=== PATIENT | male | born 1965 | race Caucasian/White ===

== ENCOUNTER → 2021-06-24 | Outpatient (CLI) | payer MEDICARE, MEDICAID | LOC: CARD 12:01 | PROVIDERS: ATTEND Internal Medicine Cardiovascular Disease | DX: I11.9 Hypertensive heart disease without heart failure (principal); I25.10 Atherosclerotic heart disease of native coronary artery without angina pectoris | CPT/HCPCS: 93306 ==

== ENCOUNTER 2021-07-03 11:06 | Emergency (ER) | payer MEDICARE, MEDICAID ==
[~2021-07-03] VITALS: Ht 182 cm; Wt 90.0 kg
--- NOTE | 2021-07-03 11:22 | ED Lower Extremity ---
General Chief Complaint: Lower Extremity Stated Complaint: L KNEE PAIN Source: patient Exam Limitations: no limitations History of Present Illness Date Seen by Provider: July 03, 2021 Time Seen by Provider: 11:19 Initial Comments Patient is a 55-year-old male with a history of arthritis who presents ED with left anterior knee pain on the medial side. Pain has been ongoing for the past 2 to 3 months. Patient states pain described as sharp and states that same throughout the day. Gets improvement when he goes to sleep at night. Reports a mild swelling without bruising or redness. States he has had an x-ray done in [place] that was unremarkable. Has been taken ibuprofen. Denies of any specific injury that he can recall. Denies history of gout, fever, chills, chest pain, shortness of breath. Patient denies of any loosening or the left knee with walking. States left knee feels like it wants to give out at times but this feels different. Allergies and Home Medications Patient Home Medication List Home Medication List Reviewed: Yes Hydrocodone/Acetaminophen (Hydrocodone-Acetamin 5-325 mg) 5 Mg-325 Mg Tablet, 1 TAB PO Q4H PRN for PAIN-MODERATE (5-7) Prescribed by: BRENDAN HUGHES on 07/03/21 1204 Meloxicam (Meloxicam) 15 Mg Tablet, 15 MG PO DAILY Prescribed by: BRENDAN HUGHES on 07/03/21 1203 Review of Systems Constitutional: No chills, No diaphoresis, No malaise EENTM: No ear discharge, No ear pain, No blurred vision, No mouth pain, No mouth swelling, No throat pain, No throat swelling Respiratory: No cough Cardiovascular: No chest pain, No edema Gastrointestinal: No abdominal pain, No diarrhea, No nausea, No vomiting Genitourinary: No decreased output, No discharge Musculoskeletal: joint pain, joint swelling Skin: No change in color, No change in hair/nails All Other Systems Reviewed Negative Unless Noted: Yes Physical Exam Vital Signs Vital Signs - First Documented 07/03/21 11:15 Temp 36.6 Pulse 84 Resp 16 B/P (MAP) 139/87 (104) Pulse Ox 98 O2 Delivery Room Air Capillary Refill : Height, Weight, BMI Height: '" Weight: lbs. oz. kg; BMI Method: General Appearance: WD/WN, no apparent distress HEENT: PERRL/EOMI, normal ENT inspection, pharynx normal Neck: non-tender, full range of motion, supple Cardiovascular: regular rate, rhythm, no edema, no gallop, no JVD Respiratory: chest non-tender, lungs clear, normal breath sounds, no respiratory distress, no accessory muscle use Gastrointestinal: normal bowel sounds, non tender, soft, no organomegaly Back: normal inspection, no CVA tenderness Knees: left knee pain, left knee soft tissue tenderness, left knee swelling Ankles: bilateral ankle non-tender, bilateral ankle normal inspection, bilateral ankle no evidence of injury Feet: bilateral foot non-tender, bilateral foot normal inspection, bilateral foot normal range of motion 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 No erythema, warmth or ecchymosis. No evidence of septic arthritis. No history of gout. Symptoms over the past 2 to 3 months. Has not follow-up with orthopedic. Denies of any specific injury. Denies of any specific clicking or locking of the knee. He states the left knee feels like it wants to give out at times. Possible meniscus injury but no significant discomfort with Desi test. Negative Davide test. Negative anterior and posterior drawer test with no specific laxity or pain with valgus or varus stress. Would likely benefit with further outpatient evaluation possible MRI versus physical therapy orthopedic evaluation. Discussed cortisone injection patient is not excited about this. Will discharge meloxicam few days worth of pain medication. Does have appropriate range of motion. Any worsening symptoms return back to ED for further evaluation. Impression Primary Impression: Knee pain Disposition: 01 HOME, SELF-CARE Condition: Stable Departure-Patient Inst. Decision time for Depature: 12:02 Referrals: [facility] (PCP) Primary Care Physician MARY LOU TAO DO (Family) Primary Care Physician TARAN العلي MD Patient Instructions: Knee Pain Scripts Hydrocodone/Acetaminophen (Hydrocodone-Acetamin 5-325 mg) 5 Mg-325 Mg Tablet 1 TAB PO Q4H PRN for PAIN-MODERATE (5-7), #8 TAB Prov: JESUS SLOAN 07/03/21 Meloxicam (Meloxicam) 15 Mg Tablet 15 MG PO DAILY, #15 TAB Prov: JESUS SLOAN 07/03/21 JESUS SLOAN July 03, 2021 11:22
--- NOTE | 2021-07-03 11:55 | Diagnostic Imaging Report ---
INDICATION: Knee pain. COMPARISON: None available. TECHNIQUE: Three radiographs of the left knee dated July 03, 2021. FINDINGS: No acute fracture or dislocation. No destructive osseous process. Moderate medial joint space narrowing and minimal lateral joint space narrowing. Mild tricompartmental osteophytosis. No knee joint effusion. No suspicious radiopaque foreign body. IMPRESSION: No acute osseous abnormality with mild degenerative changes present, greatest within the medial compartment. Dictated by: Dictated on workstation # [id number]
[2021-07-03] MEDS ORDERED: ACHD5005 PO (12:03)
[2021-07-03] MEDS ORDERED: MELO15TA39 PO (12:03)
[2021-07-03 12:06] VITALS: BP 148/85
== END 2021-07-03 12:06 | disposition home or self-care (01) ==
LOC: EDUNIT# 11:06 → ER 11:09
DX: M17.12 Unilateral primary osteoarthritis, left knee (principal)
CPT/HCPCS: 73562

== ENCOUNTER → 2021-07-31 | Outpatient (CLI) | payer MEDICARE, MEDICAID ==
[~2021-07-31] MED LIST: ACHD5005 PO; MELO15TA39 PO
[2021-07-31 14:25] VITALS: BP 155/68
--- NOTE | 2021-07-31 14:25 | Cardiology Stress Test Report ---
Stress Test Report Date of Procedure/Referring: Date of Procedure: Jul 31, 2021 [facility] Admitting Physician Admitting Physician: Attending Physician: Tita Manzanares MD Indications: CP Baseline Heart Rate: 101 Baseline Blood Pressure: Blood Pressure Systolic: 155 Blood Pressure Diastolic: 68 Baseline EKG: Baseline EKG: NSR Summary/Conclusion: Summary: In summary, the patient started exercising with a baseline heart rate, blood pressure and EKG mentioned above Patient was able to exercise for a total of 4.37 minutes on Maximiliano protocol, METs 6.4 Maximum heart rate 114 Maximum blood pressure 165/80 Stress EKG, Minimal nondiagnostic changes Recovery EKG , Return to baseline Conclusion: 1. Submaximal stress test, patient exercised for 4 minutes and 37 seconds on Maximiliano protocol achieving only 68% of maximum expected heart rate with peak heart rate 114. 2. Nondiagnostic EKG changes with exercise return to baseline during recovery 3. No arrhythmia was detected 4. Consider Lexiscan Myoview stress test Copy Copies To 1: [facility] TITA MANZANARES MD Jul 31, 2021 14:25
== END ==
LOC: CARD 10:29
PROVIDERS: ATTEND Internal Medicine Cardiovascular Disease
DX: R07.9 Chest pain, unspecified (principal); R00.2 Palpitations
CPT/HCPCS: 93017

== ENCOUNTER 2021-08-27 06:01 | Emergency (ER) | payer MEDICARE, MEDICAID ==
[~2021-08-27] VITALS: Ht 182.2 cm; Wt 89.0 kg
[2021-08-27 06:24] VITALS: BP 163/91
--- NOTE | 2021-08-27 06:33 | ED GI ---
General Chief Complaint: Abdominal/GI Problems Stated Complaint: DIARRHEA Source of Information: Patient Exam Limitations: No Limitations History of Present Illness Date Seen by Provider: Aug 27, 2021 Time Seen by Provider: 06:11 Initial Comments The patient presents the ER by private conveyance with his significant other and chief complaint that he has had diarrhea since Thursday, 4 days ago. He is on hemodialysis Thursday and Thursday and did achieve it on Thursday but could not make it today. He had multiple episodes of diarrhea yesterday and one this morning. He did take a tablet of Imodium today. He is also been eating high-fiber bland diet. He is afraid that he would not be able to participate in hemodialysis. He does not feel dehydrated and feels that he has been able to drink enough fluids to keep up. He is not having any nausea right now he is having no more pain than usual just some discomfort in his lower abdomen. He has not been camping or using antibiotics recently. No unsafe water sources Allergies and Home Medications Allergies Coded Allergies: No Known Drug Allergies (Unverified , 08/27/21) Patient Home Medication List Home Medication List Reviewed: Yes Diphenoxylate HCl/Atropine (Lomotil 2.5-0.025 mg Tablet) 2.5 Mg-0.025 Mg Tablet, 1 EACH PO QIDACHS Prescribed by: DIEGO COVARRUBIAS on 08/27/21 0644 Hydrocodone/Acetaminophen (Hydrocodone-Acetamin 5-325 mg) 5 Mg-325 Mg Tablet, 1 TAB PO Q4H PRN for PAIN-MODERATE (5-7) Prescribed by: BRENDAN HUGHES on 07/03/21 1204 Meloxicam (Meloxicam) 15 Mg Tablet, 15 MG PO DAILY Prescribed by: BRENDAN HUGHES on 07/03/21 1203 Review of Systems Review of Systems Constitutional: No chills, No diaphoresis EENTM: No Blurred Vision, No Double Vision Respiratory: Denies Cough, Denies Shortness of Air Cardiovascular: Denies Chest Pain, Denies Lightheadedness Gastrointestinal: See HPI; Denies Abdominal Pain, Denies Constipated; Diarrhea, Nausea; Denies Poor Fluid Intake, Denies Vomiting Genitourinary: Denies Burning, Denies Discharge All Other Systems Reviewed Negative Unless Noted: Yes Past Vbrnzqb-Uwtriz-Uqsrot Hx Patient Social History Tobacco Use?: Yes Tobacco type used: Cigarettes Smoking Status: Current Everyday Smoker Use of E-Cig and/or Vaping dev: No Substance use?: No Alcohol Use?: No Pt feels they are or have been: No Immunizations Up To Date Influenza Vaccine Up-to-Date: No; Not Current First/Initial COVID19 Vaccinat: UNNOWN DATE Second COVID19 Vaccination Miguel: UNNOWN DATE Third COVID19 Vaccination Date: UNNOWN DATE Physical Exam Vital Signs Vital Signs - First Documented 08/27/21 06:24 Temp 36.2 Pulse 73 Resp 20 B/P (MAP) 163/91 (115) Pulse Ox 98 O2 Delivery Room Air Capillary Refill : Height/Weight/BMI Height: '" Weight: lbs. oz. kg; 27.00 BMI Method: General Appearance: WD/WN, no apparent distress HEENT: PERRL/EOMI, pharynx normal Neck: full range of motion, normal inspection Respiratory: lungs clear, normal breath sounds, no respiratory distress, no accessory muscle use Cardiovascular: normal peripheral pulses, regular rate, rhythm, no edema Peripheral Pulses: 2+ Radial Pulses (R), 2+ Radial Pulses (L) Gastrointestinal: normal bowel sounds, non tender, soft, no organomegaly Extremities: normal inspection, normal capillary refill Neurologic/Psychiatric: alert, normal mood/affect Skin: normal color, warm/dry Progress/Results/Core Measures Results/Orders My Orders Orders - DIEGO COVARRUBIAS Diphenoxylate/Atropine Tablet (Lomotil T (08/27/21 07:00) Medications Given in ED Current Medications Medications Dose Ordered Sig/Yoan Route Start Time Stop Time Status Last Admin Dose Admin Diphenoxylate HCl/ Atropine 1 ea ONCE ONCE PO 08/27/21 07:00 08/27/21 07:01 DC 08/27/21 06:50 1 EA Vital Signs/I&O 08/27/21 06:24 Temp 36.2 Pulse 73 Resp 20 B/P (MAP) 163/91 (115) Pulse Ox 98 O2 Delivery Room Air Progress Progress Note #1: Time: 06:32 Progress Note The patient appears well-hydrated has aseptic vital signs and declined IV fluids. Were going to get him some Lomotil and he will set up his dialysis tomorrow. We will give him something to drink and observe him for a short while to make sure that he is able to tolerate the Lomotil before letting him go home with a prescription. Progress Note #2: Time: 07:02 Progress Note Patient is feeling better. No episodes of diarrhea. Departure Impression Primary Impression: Gastroenteritis and colitis, viral Disposition: 01 HOME, SELF-CARE Condition: Stable Departure-Patient Inst. Decision time for Depature: 06:33 Referrals: [facility] (PCP) Primary Care Physician MARY LOU TAO DO (Family) Primary Care Physician Patient Instructions: Viral Gastroenteritis, Adult (DC), Diarrhea, Adult ED Add. Discharge Instructions: You may continue to use Imodium. 2 tablets at first followed by 1 tablet every 4 hours afterwards that you are still having loose, watery stools until symptoms maria. If you are still having loose stools despite Imodium then take Lomotil 1 tablet every 6 hours as needed. Stick to a bland diet. Rice, applesauce and toast. Avoid spicy, greasy foods. All discharge instructions reviewed with patient and/or family. Voiced understanding. Scripts Diphenoxylate HCl/Atropine (Lomotil 2.5-0.025 mg Tablet) 2.5 Mg-0.025 Mg Tablet 1 EACH PO CORY, #20 TAB Prov: DIEGO COVARRUBIAS 08/27/21 DIEGO COVARRUBIAS Aug 27, 2021 06:33
[2021-08-27] MEDS ORDERED: DIPH1TAB PO (06:42)
[2021-08-27] MEDS ORDERED: DIPHENOXYLATE/ATROPINE 2.5MG/0.025MG (LOMOTIL) TAB PO ONE (07:00)
== END 2021-08-27 07:07 | disposition home or self-care (01) ==
LOC: EDUNIT# 06:01 → ER 06:06
DX: A08.4 Viral intestinal infection, unspecified (principal); F17.210 Nicotine dependence, cigarettes, uncomplicated; Z99.2 Dependence on renal dialysis
CPT/HCPCS: 99283

== ENCOUNTER 2021-10-09 21:08 | Emergency (ER) | payer MEDICARE, MEDICAID ==
[~2021-10-09] VITALS: Ht 182.8 cm; Wt 93.7 kg
[~2021-10-09 21:08] MED LIST changes: +DIPH1TAB PO
[2021-10-09] MEDS ORDERED: morphine INJ 10 MG/ML 1ML (SYR OR VIAL) IV STA (21:27)
[2021-10-09] MEDS ORDERED: ONDANSETRON 4 MG/2 ML (SDV) Z0FRAN IVP ONE (21:30)
[2021-10-09 21:33] LABS: BASOPHILS # (AUTO) 0.1 10^3/uL (0.0-0.1); BASOPHILS % (AUTO) 1 % (0-10); EOSINOPHILS # (AUTO) 0.2 10^3/uL (0.0-0.3); EOSINOPHILS % (AUTO) 2 % (0-10); HEMATOCRIT 35 % (40-54); HEMOGLOBIN 11.9 g/dL (13.3-17.7); LYMPHOCYTES # (AUTO) 2.8 10^3/uL (1.0-4.0); LYMPHOCYTES % (AUTO) 32 % (12-44); MEAN CORPUSCULAR HEMOGLOBIN 32 pg (25-34); MEAN CORPUSCULAR HGB CONC 34 g/dL (32-36); MEAN CORPUSCULAR VOLUME 96 fL (80-99); MEAN PLATELET VOLUME 10.1 fL (9.0-12.2); MONOCYTES # (AUTO) 1.3 10^3/uL (0.0-1.0); MONOCYTES % (AUTO) 14 % (0-12); NEUTROPHILS # (AUTO) 4.4 10^3/uL (1.8-7.8); NEUTROPHILS % (AUTO) 50 % (42-75); PLATELET COUNT 217 10^3/uL (130-400); WHITE BLOOD COUNT 8.7 10^3/uL (4.3-11.0)
--- NOTE | 2021-10-09 21:33 | ED Chest Pain ---
General Chief Complaint: Chest Pain Stated Complaint: SOB,CP Source: patient Exam Limitations: no limitations (JESUS SLOAN) History of Present Illness Date Seen by Provider: Oct 09, 2021 Time Seen by Provider: 21:30 Initial Comments Patient is a 55-year-old male with a history of dialysis, hypertension, type 2 diabetes who presents ED with chest tightness and shortness of breath. This started 1 hour ago before going to bed. States he started having chest tightness with shortness of breath was not able to speak. The shortness of breath improved but still having chest tightness rated 7 out of 10. Located to the center part of his chest without radiation. Reports nausea after taking an full aspirin given by EMS. Denies vomiting or diarrhea. Does get dialysis every Thursday and Thursday. Did go to dialysis yesterday. Denies any fever, vomiting, diarrhea, cough, leg swelling, visual changes, headache. Patient was reports of back pain and neck pain and states this is chronic and believes this is worse with laying down here at bedside. 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 Submaximal stress test in july 2021. (JESUS SLOAN) Allergies and Home Medications Allergies Coded Allergies: No Known Drug Allergies (Unverified , 08/27/21) Patient Home Medication List Home Medication List Reviewed: Yes (JESUS SLOAN) Diphenoxylate HCl/Atropine (Lomotil 2.5-0.025 mg Tablet) 2.5 Mg-0.025 Mg Tablet, 1 EACH PO QIDACHS Prescribed by: DIEGO COHEN on 08/27/21 0644 Hydrocodone/Acetaminophen (Hydrocodone-Acetamin 5-325 mg) 5 Mg-325 Mg Tablet, 1 TAB PO Q4H PRN for PAIN-MODERATE (5-7) Prescribed by: BRENDAN HUGHES on 07/03/21 1204 Meloxicam (Meloxicam) 15 Mg Tablet, 15 MG PO DAILY Prescribed by: BRENDAN HUGHES on 07/03/21 1203 Review of Systems Review of Systems Constitutional: No chills, No diaphoresis, No malaise, No weakness EENTM: No Blurred Vision, No Double Vision, No Eye Pain Respiratory: Denies Cough; Shortness of Air Cardiovascular: Chest Pain Gastrointestinal: Denies Abdominal Pain, Denies Diarrhea; Nausea; Denies Vomiting Genitourinary: Denies Burning Musculoskeletal: No back pain, No joint pain Skin: No change in color, No change in hair/nails (JESUS SLOAN) All Other Systems Reviewed Negative Unless Noted: Yes (JESUS SLOAN) Past Tiechvc-Iyepdn-Kswkgm Hx Immunizations Up To Date First/Initial COVID19 Vaccinat: UNNOWN DATE Second COVID19 Vaccination Miguel: UNNOWN DATE Third COVID19 Vaccination Date: UNNOWN DATE (JESUS SLOAN) Physical Exam Vital Signs Vital Signs - First Documented 10/09/21 21:09 Temp 36.9 Pulse 65 Resp 18 B/P (MAP) 140/92 (108) Pulse Ox 97 O2 Delivery Room Air (DIEGO COHEN) Vital Signs Capillary Refill : (JESUS SLOAN) Height, Weight, BMI Height: '" Weight: lbs. oz. kg; 26.00 BMI Method: General Appearance: No Apparent Distress, WD/WN HEENT: PERRL/EOMI, TMs Normal, Normal ENT Inspection, Pharynx Normal Neck: Full Range of Motion, Normal Inspection, Non Tender, Supple Respiratory: Chest Non Tender, Lungs Clear, Normal Breath Sounds, No Accessory Muscle Use, No Respiratory Distress Cardiovascular: Regular Rate, Rhythm, No Edema, No Gallop, No JVD, No Murmur Gastrointestinal: Normal Bowel Sounds, No Organomegaly, No Pulsatile Mass, Non Tender Extremity: Normal Capillary Refill, Normal Inspection, Normal Range of Motion, Non Tender Neurologic/Psychiatric: Alert, Oriented x3, No Motor/Sensory Deficits, Normal 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, 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 Skin: Normal Color, Warm/Dry (JESUS SLONA) Progress/Results/Core Measures Results/Orders Lab Results Laboratory Tests Test 10/09/21 21:15 10/10/21 00:17 Range/Units White Blood Count 8.7 4.3-11.0 10^3/uL Red Blood Count 3.67 L 4.30-5.52 10^6/uL Hemoglobin 11.9 L 13.3-17.7 g/dL Hematocrit 35 L 40-54 % Mean Corpuscular Volume 96 80-99 fL Mean Corpuscular Hemoglobin 32 25-34 pg Mean Corpuscular Hemoglobin Concent 34 32-36 g/dL Red Cell Distribution Width 13.4 10.0-14.5 % Platelet Count 217 130-400 10^3/uL Mean Platelet Volume 10.1 9.0-12.2 fL Immature Granulocyte % (Auto) 0 % Neutrophils (%) (Auto) 50 42-75 % Lymphocytes (%) (Auto) 32 12-44 % Monocytes (%) (Auto) 14 H 0-12 % Eosinophils (%) (Auto) 2 0-10 % Basophils (%) (Auto) 1 0-10 % Neutrophils # (Auto) 4.4 1.8-7.8 10^3/uL Lymphocytes # (Auto) 2.8 1.0-4.0 10^3/uL Monocytes # (Auto) 1.3 H 0.0-1.0 10^3/uL Eosinophils # (Auto) 0.2 0.0-0.3 10^3/uL Basophils # (Auto) 0.1 0.0-0.1 10^3/uL Immature Granulocyte # (Auto) 0.0 0.0-0.1 10^3/uL Prothrombin Time 14.2 12.2-14.7 SEC INR Comment 1.1 0.8-1.4 Activated Partial Thromboplast Time 35 24-35 SEC Sodium Level 136 135-145 MMOL/L Potassium Level 5.6 H 3.6-5.0 MMOL/L Chloride Level 96 L 98-107 MMOL/L Carbon Dioxide Level 24 21-32 MMOL/L Anion Gap 16 H 5-14 MMOL/L Blood Urea Nitrogen 63 H 7-18 MG/DL Creatinine 9.32 H 0.60-1.30 MG/DL Estimat Glomerular Filtration Rate 6 BUN/Creatinine Ratio 7 Glucose Level 97 70-105 MG/DL Calcium Level 9.4 8.5-10.1 MG/DL Corrected Calcium 9.4 8.5-10.1 MG/DL Magnesium Level 2.6 H 1.6-2.4 MG/DL Total Bilirubin 0.5 0.1-1.0 MG/DL Aspartate Amino Transf (AST/SGOT) 13 5-34 U/L Alanine Aminotransferase (ALT/SGPT) 14 0-55 U/L Alkaline Phosphatase 39 L 40-136 U/L Myoglobin 294.3 H 10.0-92.0 NG/ML Troponin I 0.030 H 0.032 H <0.028 NG/ML Total Protein 7.0 6.4-8.2 GM/DL Albumin 4.0 3.2-4.5 GM/DL (DIEGO COHEN) My Orders Orders - DIEGO COHEN Ekg Tracing (10/09/21 21:17) Troponin I [place] (10/10/21 00:15) (DIEGO COEHN) Medications Given in ED Current Medications Medications Dose Ordered Sig/Yoan Route Start Time Stop Time Status Last Admin Dose Admin Dextrose 25 ml ONCE ONCE IV 10/09/21 21:45 10/09/21 21:47 DC 10/09/21 22:32 25 ML Insulin Human Regular 10 unit ONCE ONCE IV 10/09/21 21:45 10/09/21 21:47 DC 10/09/21 22:32 10 UNIT Ondansetron HCl 4 mg ONCE ONCE IVP 10/09/21 21:30 10/09/21 21:31 DC 10/09/21 21:49 4 MG (DIEGO COHEN) Vital Signs/I&O 10/09/21 21:09 Temp 36.9 Pulse 65 Resp 18 B/P (MAP) 140/92 (108) Pulse Ox 97 O2 Delivery Room Air (DIEGO COHEN) Progress Progress Note : Time: 23:26 Progress Note Assumed care of the patient at shift change. Plan is to repeat a 3-hour delta troponin. If it is okay then he can go home and follow-up outpatient. Patient is pain-free, resting comfortably at this time. (DIEGO COHEN) Initial ECG Impression Date: Oct 09, 2021 Initial ECG Impression Time: 21:21 Initial ECG Rate: 69 Initial ECG Rhythm: Normal Sinus Initial ECG Intervals: Normal Initial ECG Impression: Normal Comment Normal sinus rhythm without ST elevation or depression. (DIEGO COHEN) Departure Communication (PCP) Patient troponin initially 0.30. Chronic kidney disease requiring dialysis every Thursday, and Thursday. He is currently pain-free after IV morphine. EKG showed normal sinus rhythm. Had a submaximal test result by Dr. Manzanares in July of a stress test and scheduled for a pharmacology stress test due to not able to perform the walking stress test. History of coronary artery disease, type 2 diabetes, family cardiac history. Patient currently with chronic kidney disease. Had a potassium of 5.6 was given insulin and D50. No EKG changes. Chest x-ray unremarkable. No leg swelling noted. He Is not hypoxic or tachycardic with stable vital signs. Patient was discussed with Dr. Du cardiology recommend a serial troponin if number is similar to his other results patient can be discharged outpatient. If any changes in troponin re commends transfer. Patient was discussed with Jeniffer at [facility] for potential transfer if need. Patietn was discussed with DR. Cohen who took over care at 11 PM. (JESUS SLOAN) Impression Primary Impression: Chest pain Qualified Codes: R07.9 - Chest pain, unspecified Disposition: HOME, SELF-CARE Condition: Stable Departure-Patient Inst. Decision time for Depature: 01:03 (DIEGO COHEN) Referrals: [facility] (PCP) Primary Care Physician MARY LOU TAO DO (Family) Primary Care Physician TITA MANZANARES MD Patient Instructions: Chest Pain (DC) Add. Discharge Instructions: Continue take your medications as prescribed. Tomorrow call Dr. Manzanares's office and request follow-up appointment. Return to the nearest ER for significant chest pain, shortness of air or other worrisome symptoms. Keep your follow-up at the dialysis center. All discharge instructions reviewed with patient and/or family. Voiced understanding. Copy Copies To 1: TITA MANZANARES MD, ZACHARY A PA Oct 09, 2021 21:33 DIEGO COHEN Oct 09, 2021 23:27
[2021-10-09 21:36] LABS: POTASSIUM 5.6 MMOL/L (3.6-5.0)
[2021-10-09 21:38] LABS: CALCIUM 9.4 MG/DL (8.5-10.1)
[2021-10-09 21:39] LABS: INR 1.1 (0.8-1.4); PROTHROMBIN TIME PATIENT 14.2 SEC (12.2-14.7)
[2021-10-09 21:41] LABS: BILIRUBIN,TOTAL 0.5 MG/DL (0.1-1.0)
[2021-10-09 21:43] LABS: CREATININE SERUM 9.32 MG/DL (0.60-1.30)
[2021-10-09 21:45] LABS: MAGNESIUM 2.6 MG/DL (1.6-2.4)
[2021-10-09] MEDS ORDERED: inSUlin (REGULAR) HUMAN 1 UNIT/0.01 ML (CHARGE PER UNIT) IV ONE (21:45)
[2021-10-09] MEDS ORDERED: DEXTROSE 50% 50 ML (IMS) SYR IV ONE (21:45)
--- NOTE | 2021-10-09 21:49 | Diagnostic Imaging Report ---
INDICATION: Chest pain. EXAMINATION: AP view of the chest was obtained. COMPARISON: There is no previous study for comparison. FINDINGS: Heart size is within normal limits. Pulmonary vascularity is at the upper limits, however there is no evidence of overt edema. No consolidation, pneumothorax or pleural fluid is seen. IMPRESSION: Pulmonary vascularity is at the upper limits of normal. This could be due to hypervolemia and clinical correlation is recommended. Dictated by: Dictated on workstation # [id number]
[2021-10-10 01:09] VITALS: BP 138/86
[2021-10-10] MEDS ORDERED: oxyCODONE/APAP 5/325MG (PERCOCET 5) TABLET PO ONE (01:15)
== END 2021-10-10 01:09 | disposition home or self-care (01) ==
LOC: EDUNIT# 21:08 → ER 21:09
DX: R07.89 Other chest pain (principal); R11.0 Nausea; I12.9 Hypertensive chronic kidney disease with stage 1 through stage 4 chronic kidney disease, or unspecified chronic kidney disease; E11.22 Type 2 diabetes mellitus with diabetic chronic kidney disease; N18.9 Chronic kidney disease, unspecified; Z99.2 Dependence on renal dialysis
CPT/HCPCS: 36415; 71045; 80053; 83735; 83874; 84484; 85025; 85610; 85730; 93005; 93041; 96374; 96375

== ENCOUNTER → 2021-10-14 | Outpatient (CLI) | payer MEDICARE, MEDICAID ==
[~2021-10-14] VITALS: Ht 182 cm; Wt 89.0 kg
[~2021-10-14] MED LIST changes: +REGADENOSON 0.4 MG/5 ML SYR (LEXISCAN) IV ONE
[2021-10-14] MEDS: CATHETER FLUSH 10 ML SYR IVP PRN ×2 (07:03→08:55)
[2021-10-14 08:53] VITALS: BP 162/101
--- NOTE | 2021-10-14 11:39 | Cardiology Stress Test Report ---
Stress Test Report Date of Procedure/Referring: Date of Procedure: Oct 14, 2021 [facility] Admitting Physician Admitting Physician: Attending Physician: Holly Atkins Indications: CAD Baseline Heart Rate: 68 Baseline Blood Pressure: Blood Pressure Systolic: 162 Blood Pressure Diastolic: 101 Baseline Vitals Vital Signs Date Time Temp Pulse Resp B/P (MAP) Pulse Ox O2 Delivery O2 Flow Rate FiO2 10/14/21 08:53 67 16 162/101 (121) 95 Room Air Baseline EKG: Baseline EKG: NSR Summary After explaining the procedure to the patient, he signed a consent and then brought to the stress nuclear laboratory. Patient received 0.4 mg Lexiscan for stress test, ECG, heart rate and blood pressure were monitored continuously. Resting and stress dose of radio tracer were injected, imaging was acquired and reviewed in short axis, horizontal long axis and vertical long axis views. TID: 1.15 SSS: 6 SDS: 5 EF: 47 1. Patient tolerated Lexiscan well 2. Diaphragmatic attenuation with mild reversible ischemia involving the inferoapical segment and the inferior lateral segment 3. Normal left ventricular size with mild hypokinesia of the inferior wall, ejection fraction 47% Copy Copies To 1: [facility] [place] TITA BANDA MD Oct 14, 2021 11:39
== END ==
LOC: CARD 07:30
PROVIDERS: ATTEND Physician Assistant
DX: I25.10 Atherosclerotic heart disease of native coronary artery without angina pectoris (principal)
CPT/HCPCS: 78452; 93017; A9502

== ENCOUNTER 2021-10-30 10:00 | Day surgery (SDC) | payer MEDICARE, MEDICAID ==
[~2021-10-30] VITALS: Ht 182.9 cm; Wt 91.0 kg
[2021-10-30] VITALS (25 sets, daily range): BP systolic 142–218; BP diastolic 90–119
[2021-10-30 08:04] LABS: HEMATOCRIT 34 % (40-54); HEMOGLOBIN 10.4 g/dL (13.3-17.7); MEAN CORPUSCULAR HEMOGLOBIN 32 pg (25-34); MEAN CORPUSCULAR HGB CONC 31 g/dL (32-36); MEAN CORPUSCULAR VOLUME 102 fL (80-99); MEAN PLATELET VOLUME 9.9 fL (9.0-12.2); PLATELET COUNT 209 10^3/uL (130-400); WHITE BLOOD COUNT 8.6 10^3/uL (4.3-11.0)
--- NOTE | 2021-10-30 08:07 | Diagnostic Imaging Report ---
Indication: Abnormal cardiac stress test Heart size and pulmonary vascularity are within normal limits. There is no pneumothorax or consolidation. No definite pleural fluid is identified. IMPRESSION: No definite acute abnormality. Dictated by: Dictated on workstation # [id number]
[2021-10-30 08:28] LABS: PROTHROMBIN TIME PATIENT 13.9 SEC (12.2-14.7)
[2021-10-30 08:36] LABS: ALBUMIN 3.6 GM/DL (3.2-4.5); BILIRUBIN,TOTAL 0.4 MG/DL (0.1-1.0); CALCIUM 8.9 MG/DL (8.5-10.1); CREATININE SERUM 7.78 MG/DL (0.60-1.30); POTASSIUM 5.6 MMOL/L (3.6-5.0); TOTAL PROTEIN 6.6 GM/DL (6.4-8.2)
[~2021-10-30 10:00] MED LIST changes: +ACET-93 PO; +ALLO100T PO; +AMLO-250 PO; +APIX2.5T PO; +CHOL400T3 PO; +FERR210T PO; +HEParin (CATH LAB) 2,000 ML IV ONE; +LIDOCAINE 1% INJ 20 ML VIAL ONE; +LISI20TA26 PO; +MONT10TA21 PO; +NS IV 1000 ML 1,000 ML IV SCH; +NS IV 1000 ML 1,000 ML ONE; +ONDA4TAB11 PO; +PANT40TA52 PO; -REGADENOSON 0.4 MG/5 ML SYR (LEXISCAN) IV ONE; +RT-ALBUINH INH; +SEVE800T7 PO; +SODI10PO PO; +TRAZ150T72 PO
[2021-10-30] MEDS ORDERED: fentaNYL INJ 100 MCG/2 ML AMP ONE (10:04)
[2021-10-30] MEDS ORDERED: MIDAZOLAM 2 MG/2 ML (VERSED) VIAL ONE ×3 (10:06→10:27)
--- NOTE | 2021-10-30 10:16 | Cardiac Procedure Note-CS/ASA ---
Pre-Procedure Note Pre-Op Procedure Note Date of Available H&P: Oct 17, 2021 Date H&P Reviewed: Oct 30, 2021 Time H&P Reviewed: 10:15 History & Physical: H&P Reviewed, Patient Examed, No changes noted Pre-Operative Diagnosis: CAD Conscious Sedation Pre-Proced Time 10:16 ASA Score 3 For ASA 3 and 4: Consider anesthesia and medical clearance. Also, for patients with a history of failed moderate sedation consider anesthesia. Airway Lungs Heart ASA score ASA 1: a normal healthy patient ASA 2: a patient with a mild systemic disease (mid diabetes, controlled hypertension, obesity ASA 3: a patient with a severe systemic disease that limits activity (angina, COPD, prior Myocardial infarction) ASA 4: a patient with an incapacitating disease that is a constant threat to life (CHF, renal failure) ASA 5: a moribund patient not expected to survive 24 hrs. (ruptured aneurysm) ASA 6: a declared brain- patient whose organs are being harvested. For emergent operations, add the letter E after the classification Mallampati Classification Grade 3 Sedation Plan Analgesia, Amnesia, Plan communicated to team members, Discussed options with patient/fam, Discussed risks with patient/fam The patient is an appropriate candidate to undergo the planned procedure, sedation, and anesthesia. The patient immediately re-assessed prior to indication. TITA BANDA MD Oct 30, 2021 10:16
[2021-10-30] MEDS ORDERED: meTOprolol 5 MG/5 ML (LOPRESSOR) VIAL ONE (10:38)
--- NOTE | 2021-10-30 10:51 | Discharge Inst-Post CATH ---
Discharge Inst-CATH/EP Problems Reviewed?: Yes Post Cardiac Cath/EP D/C Inst Follow Up/Plan Appointment with Dr. Manzanares's office in 2 to 4 weeks <b>CARDIAC CATH/EP PROCEDURE DISCHARGE INSTRUCTIONS</b> ACTIVITY * Go Home directly and rest. * Limit activity of the leg (or wrist if it was used) for 7 days including aer obics, swimming, jogging, bicycling, etc. * Restrict stair-climbing for 7 days if possible, if not, climb up with your non-cath leg, then bring together on the same step. * Avoid lifting, pushing, pulling or excessive movement of the affected extremi ty for 7 days. * Customary sexual activity may be resumed after 2 days-use caution not to use a position that strains or causes pain to the affected extremity. * No driving for 24 hours. * NO SMOKING. * Avoid straining for bowel movements for 7 days. * Gentle walking on level ground is allowed. * Returning to work will depend on the type of procedure and the results. Your doctor will discuss this with you. CALL YOUR DOCTOR FOR ANY OF THE FOLLOWING: *If bleeding from the puncture site occurs- Apply gentle pressure to site with clean cloth and call your doctor or EMS. * If a knot or lump forms under the skin, increases in size, or causes pain. * If bruising appears to be worsening or moving further down your leg instead of disappearing. * Temperature above 101 F. CARE OF YOUR GROIN INCISION; * Bruising or purple discoloration of the skin near the puncture site is common. * You may shower only, no bathtub bathing for 5 days. Be careful to avoid slipping as your leg may feel stiff. * If a closure device was used on your femoral artery, please see the attached guide regarding care of the device and your leg. * Leave dressing on FOR 24 hours. CARE OF YOUR WRIST INCISION; * Bruising or purple discoloration of the skin near the puncture site is common. * You may shower. * DO NOT submerge wrist. * Leave dressing on FOR 24 hours. TITA MANZANARES MD Oct 30, 2021 10:51
--- NOTE | 2021-10-30 10:54 | Cardiac Cath Report ---
Cardiac Cath Report Physician (s)/Statistical Clerk (s) Physician TITA BANDA MD Pre-Procedure Diagnosis Pre-Procedure Diagnosis: CAD Post-Procedure Note Procedure Start Date: Oct 30, 2021 Name of Procedure: Left heart catheterization Findings/Procedure Note PROCEDURE NOTE: 56-year-old gentleman with history of end-stage kidney disease on hemodialysis, hypertension and hyperlipidemia, had an abnormal stress test, scheduled for cardiac catheterization possible PTCA. After explaining the procedure to the patient, all pros and cons were explained, all questions were answered. The patient signed the consent and then he was placed on the cardiac catheterization laboratory. Groin was prepped SL fashion local anesthesia was used. Sheath placed in the right femoral artery. Sol right and left catheter were used to access the coronary system. Pigtail was used to access the left ventricular cavity. Left ventriculogram was not done, pressure was measured Aortic arch angiogram was not done At the end of the procedure the sheath was removed. Closure device was deployed FINDINGS: Hemodynamics LV 144/17, end-diastolic pressure of 17 Aorta 129/73 mean of 101 ANATOMY: Left Main has no obstructive disease Left Anterior Descending has mild diffuse ectasia with nonobstructive disease Left Circumflex has mild diffuse ectasia with nonobstructive disease Right Coronary Artery has mild diffuse ectasia, dominant artery, nonobstructive disease LV Gram was not done, pressure was measured CONCLUSION: 1. Mild diffuse coronary ectasia, nonobstructive disease 2. Mildly elevated left ventricular end-diastolic pressure, hypertensive heart disease DISCUSSION AND RECOMMENDATION: Continue to maximize medical therapy, no intervention is needed Anesthesia Type: Conscious Sedation Estimated blood loss (mL): 20 ml Contrast Amount: 44 ml Total Radiation Dose: 340 mGy Post-Procedure Diagnosis Post-operative diagnosis: Chest pain Coronary artery disease Hypertension End-stage kidney disease TITA BANDA MD Oct 30, 2021 10:53
[2021-10-30] MEDS ORDERED: NS IV 1000 ML 1,000 ML IV SCH (11:00)
[2021-10-30] MEDS ORDERED: PATIENT MAY USE OWN MEDS, ALL PO SCH (11:00)
[2021-10-30] MEDS ORDERED: cloNIDine 0.1 MG (CATAPRES) TAB PO NR (14:00)
[2021-10-30] MEDS ORDERED: amLODIPine 5 MG (NORVASC) TAB PO SCH (14:15)
[2021-10-30] MEDS ORDERED: lisINopril 20 MG (PRINIVIL) TABLET PO SCH (14:15)
[2021-10-30] MEDS ORDERED: morphine INJ 10 MG/ML 1ML (SYR OR VIAL) IVP STA (16:29)
[2021-10-30] MEDS ORDERED: morphine INJ 4 MG/ML 1 ML (VIAL/SYRINGE) ONE (16:33)
[2021-10-30] MEDS ORDERED: morphine INJ 4 MG/ML 1 ML (VIAL/SYRINGE) IVP ONE (16:45)
== END 2021-10-30 18:10 | disposition home or self-care (01) ==
LOC: CATH 10:00 → CSD 11:16 → CATH 18:10
PROVIDERS: ATTEND Internal Medicine Cardiovascular Disease
DX: I48.0 Paroxysmal atrial fibrillation (principal); I25.10 Atherosclerotic heart disease of native coronary artery without angina pectoris; I12.0 Hypertensive chronic kidney disease with stage 5 chronic kidney disease or end stage renal disease; N18.6 End stage renal disease; Z79.01 Long term (current) use of anticoagulants; Z79.899 Other long term (current) drug therapy; Z87.891 Personal history of nicotine dependence; Z99.2 Dependence on renal dialysis; I65.23 Occlusion and stenosis of bilateral carotid arteries; E78.5 Hyperlipidemia, unspecified
CPT/HCPCS: 71045; 80053; 80061; 85027; 85610; 85730; 87081; 93005; 93458; C1760; C1894; 36415

== ENCOUNTER 2021-11-01 20:00 | Emergency (ER) | payer MEDICARE, MEDICAID ==
[~2021-11-01] VITALS: Ht 182.9 cm; Wt 90.7 kg
[~2021-11-01 20:00] MED LIST changes: -HEParin (CATH LAB) 2,000 ML IV ONE; -LIDOCAINE 1% INJ 20 ML VIAL ONE; -NS IV 1000 ML 1,000 ML IV SCH; -NS IV 1000 ML 1,000 ML ONE
[2021-11-01] MEDS ORDERED: HYDROmorphone 2 MG/ML VIAL (DILAUDID) IV ONE ×2 (20:15→20:30)
--- NOTE | 2021-11-01 20:19 | ED Lower Extremity ---
General Stated Complaint: POST CATH BLEED Source: patient, EMS Exam Limitations: no limitations History of Present Illness Date Seen by Provider: Nov 01, 2021 Time Seen by Provider: 20:16 Initial Comments To ER by EMS from the [facility] where he had sudden onset of right groin pain. Upon EMS arrival they cut off his jeans and noted bruising to the right groin. He had right femoral artery access for cardiac catheterization here 2 days ago. He been doing well until this evening. By the time they had arrived to the emergency room he had very large hematoma to the right groin, severe pain down to the knee and has become hypotensive. He does receive hemodialysis. Onset: just prior to arrival Severity: moderate Pain/Injury Location: right leg Method of Injury: unknown Allergies and Home Medications Allergies Coded Allergies: No Known Drug Allergies (Unverified , 08/27/21) Patient Home Medication List Home Medication List Reviewed: Yes Acetaminophen (Acetaminophen) 500 Mg Tablet, 1,000 MG PO Q6H PRN for PAIN-MILD (1-4), (Reported) Entered as Reported by: LUIS FELIPE GARRETT on 10/30/21 0854 Albuterol Sulfate (Ventolin Hfa) 1 Puff Puff, 2 PUFF INH Q4H, (Reported) Entered as Reported by: LUIS FELIPE GARRETT on 10/30/21 0854 Allopurinol (Allopurinol) 100 Mg Tablet, 100 MG PO DAILY, (Reported) Entered as Reported by: LUIS FELIPE GARRETT on 10/30/21 0854 Amlodipine Besylate (Amlodipine Besylate) 5 Mg Tablet, 5 MG PO DAILY, (Reported) Entered as Reported by: LUIS FELIPE GARRETT on 10/30/21 0854 Apixaban (Eliquis) 2.5 Mg Tablet, 2.5 MG PO BID, (Reported) Entered as Reported by: LUIS FELIPE GARRETT on 10/30/21 0854 Cholecalciferol (Vitamin D3) (Vitamin D3) 10 Mcg (400 Unit) Tab.chew, 10 MCG PO DAILY, (Reported) Entered as Reported by: LUIS FELIPE GARRETT on 10/30/21 0854 Ferric Citrate (Auryxia) 210 Mg Iron Tablet, 210 MG PO BID, (Reported) Entered as Reported by: LUIS FELIPE GARRETT on 10/30/21 0854 Lisinopril (Lisinopril) 20 Mg Tablet, 20 MG PO DAILY, (Reported) Entered as Reported by: LUIS FELIPE GARRETT on 10/30/21 08 Montelukast Sodium (Singulair) 10 Mg Tablet, 10 MG PO DAILY, (Reported) Entered as Reported by: LUIS FELIPE GARRETT on 10/30/21 08 Ondansetron (Ondansetron Odt) 4 Mg Tab.rapdis, 4 MG PO DAILY PRN for NAUSEA/VOMITING, (Reported) Entered as Reported by: LUIS FELIPE GARRETT on 10/30/21 08 Pantoprazole Sodium (Pantoprazole Sodium) 40 Mg Tablet.dr, 40 MG PO DAILY, (Re ported) Entered as Reported by: LUIS FELIPE GARRETT on 10/30/21 08 Sevelamer Carbonate (Renvela) 800 Mg Tablet, 800 MG PO TID, (Reported) Entered as Reported by: LUIS FELIPE GARRETT on 10/30/21853 Sodium Zirconium Cyclosilicate (Lokelma) 10 Gram Powd.pack, 10 GM PO, (Reported) Entered as Reported by: LUIS FELIPE GARRETT on 10/30/21 08 Trazodone HCl (Trazodone HCl) 150 Mg Tablet, 150 MG PO HS, (Reported) Entered as Reported by: LUIS FELIPE GARRETT on 10/30/21853 Discontinued Medications Diphenoxylate HCl/Atropine (Lomotil 2.5-0.025 mg Tablet) 2.5 Mg-0.025 Mg Tablet, 1 EACH PO QIDACHS Discontinued Reason: No Longer Taking Prescribed by: DIEGO COVARRUBIAS on 08/27/21 0644 Hydrocodone/Acetaminophen (Hydrocodone-Acetamin 5-325 mg) 5 Mg-325 Mg Tablet, 1 TAB PO Q4H PRN for PAIN-MODERATE (5-7) Discontinued Reason: No Longer Taking Prescribed by: BRENDAN HUGHES on 07/03/21 1204 Meloxicam (Meloxicam) 15 Mg Tablet, 15 MG PO DAILY Discontinued Reason: No Longer Taking Prescribed by: BRENDAN HUGHES on 07/03/21 1203 Review of Systems Constitutional: see HPI EENTM: see HPI Respiratory: no symptoms reported Cardiovascular: no symptoms reported Genitourinary: no symptoms reported Musculoskeletal: no symptoms reported Skin: no symptoms reported Psychiatric/Neurological: No Symptoms Reported Past Uvpvgia-Rbnvtk-Gwahne Hx Immunizations Up To Date First/Initial COVID19 Vaccinat: UNNOWN DATE Second COVID19 Vaccination Miguel: UNNOWN DATE Third COVID19 Vaccination Date: UNNOWN DATE Past Medical History Gallbladder Currently Using CPAP: No Atrial Fibrillation, Hypertension Renal Failure Gastroesophageal Reflux Skin Physical Exam Vital Signs Capillary Refill : Height, Weight, BMI Height: '" Weight: lbs. oz. kg; 27.20 BMI Method: General Appearance: WD/WN, no apparent distress Neck: non-tender, full range of motion Respiratory: no respiratory distress, no accessory muscle use Gastrointestinal: normal bowel sounds, non tender, soft Hips: bilateral hip non-tender, bilateral hip normal inspection Legs: bilateral leg non-tender, bilateral leg normal inspection, bilateral leg normal range of motion; right leg other (There is no palpable pulse in the dorsalis pedis or right posterior tibial pulse though there is dopplerable blood flow overlying these arteries.) Knees: bilateral knee non-tender, bilateral knee normal inspection, bilateral knee normal range of motion Ankles: bilateral ankle non-tender, bilateral ankle normal inspection, bilateral ankle normal range of motion Feet: bilateral foot non-tender, bilateral foot normal inspection, bilateral foot normal range of motion Neurologic/Tendon: normal sensation, normal motor functions Neurologic/Psychiatric: alert, normal mood/affect, oriented x 3 Skin: normal color, warm/dry Progress/Results/Core Measures Results/Orders Lab Results Laboratory Tests Test 11/01/21 20:14 Range/Units White Blood Count 11.1 H 4.3-11.0 10^3/uL Red Blood Count 2.36 L 4.30-5.52 10^6/uL Hemoglobin 7.7 #L 13.3-17.7 g/dL Hematocrit 24 L 40-54 % Mean Corpuscular Volume 101 H 80-99 fL Mean Corpuscular Hemoglobin 33 25-34 pg Mean Corpuscular Hemoglobin Concent 32 32-36 g/dL Red Cell Distribution Width 14.9 H 10.0-14.5 % Platelet Count 214 130-400 10^3/uL Mean Platelet Volume 10.4 9.0-12.2 fL Immature Granulocyte % (Auto) 1 % Neutrophils (%) (Auto) 45 42-75 % Lymphocytes (%) (Auto) 30 12-44 % Monocytes (%) (Auto) 20 H 0-12 % Eosinophils (%) (Auto) 5 0-10 % Basophils (%) (Auto) 0 0-10 % Neutrophils # (Auto) 4.9 1.8-7.8 10^3/uL Lymphocytes # (Auto) 3.3 1.0-4.0 10^3/uL Monocytes # (Auto) 2.2 H 0.0-1.0 10^3/uL Eosinophils # (Auto) 0.5 H 0.0-0.3 10^3/uL Basophils # (Auto) 0.0 0.0-0.1 10^3/uL Immature Granulocyte # (Auto) 0.1 0.0-0.1 10^3/uL Prothrombin Time 15.3 H 12.2-14.7 SEC INR Comment 1.2 0.8-1.4 Activated Partial Thromboplast Time 34 24-35 SEC Sodium Level 138 135-145 MMOL/L Potassium Level 4.7 3.6-5.0 MMOL/L Chloride Level 100 98-107 MMOL/L Carbon Dioxide Level 19 L 21-32 MMOL/L Anion Gap 19 H 5-14 MMOL/L Blood Urea Nitrogen 41 H 7-18 MG/DL Estimat Glomerular Filtration Rate 7 BUN/Creatinine Ratio 5 Glucose Level 126 H 70-105 MG/DL Calcium Level 8.3 L 8.5-10.1 MG/DL Corrected Calcium 8.9 8.5-10.1 MG/DL Total Bilirubin 0.4 0.1-1.0 MG/DL Aspartate Amino Transf (AST/SGOT) 15 5-34 U/L Alanine Aminotransferase (ALT/SGPT) 15 0-55 U/L Alkaline Phosphatase 37 L 40-136 U/L Total Protein 6.0 L 6.4-8.2 GM/DL Albumin 3.3 3.2-4.5 GM/DL My Orders Orders - DEXTER JORDAN [employer] Cta Aorta W Guru Runoff W/Wo (11/01/21 20:08) Cbc With Automated Diff (11/01/21 20:08) Protime With Inr (11/01/21 20:08) Partial Thromboplastin Time (11/01/21 20:08) Comprehensive Metabolic Panel (11/01/21 20:08) Alcohol (11/01/21 20:08) Red Cells Leukocytes Reduced (11/01/21 20:08) Hydromorphone Injection (Dilaudid Inject (11/01/21 20:15) Type And Screen (11/01/21 20:08) Hydromorphone Injection (Dilaudid Inject (11/01/21 20:30) Hydromorphone Injection (Dilaudid Inject (11/01/21 20:26) Manual Differential (11/01/21 20:14) Iohexol Injection (Omnipaque 350 Mg/Ml 1 (11/01/21 21:15) Received Contrast (Hold Metformin- Contr (11/01/21 21:15) Sodium Chloride Flush (Catheter Flush Sy (11/01/21 21:15) Ns (Ivpb) (Sodium Chloride 0.9% Ivpb Bag (11/01/21 21:15) Medications Given in ED Current Medications Medications Dose Ordered Sig/Yoan Route Start Time Stop Time Status Last Admin Dose Admin Hydromorphone HCl 1 mg ONCE ONCE IV 11/01/21 20:30 11/01/21 20:31 DC 11/01/21 21:01 1 MG Hydromorphone HCl 2 mg ONCE ONCE IV 11/01/21 20:15 11/01/21 20:16 DC 11/01/21 20:22 2 MG Iohexol 150 ml ONCE ONCE IV 11/01/21 21:15 11/01/21 21:16 DC 11/01/21 21:12 120 ML Sodium Chloride 10 ml NEEDED PRN IV 11/01/21 21:15 11/01/21 21:12 10 ML Sodium Chloride 100 ml ONCE ONCE IV 11/01/21 21:15 11/01/21 21:16 DC 11/01/21 21:12 80 ML Departure Communication (Admissions) 2018-EMS gave 200 mcg of fentanyl. 1 L of LR. On arrival here blood pressure down to 73/50. Second liter of crystalloids being normal saline this time started and I have ordered 2 units of uncrossed matched O+ blood. We have also done 2 mg of IV Dilaudid. 2101-[facility] vascular surgeon Dr Patel consulted. Will fly patient. Bp up to 107/70 after 2L fluid bolus +1 unit uncrossmatched PRBCs. 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 Last Hg 10.4 two days ago 2110-spoke with Dr. Patel from vascular surgery at [facility]. He is not sure why the patient would need to be transferred there since there is no active extravasation on CT. However the potential need for dialysis given that he is a hemodialysis patient and has received 2 L of fluids 1 unit of packed red cells here and with recent significant hemodynamic instability certainly warrants hospitalization at a facility where vascular surgery is available and at a facility where nephrology is available. We do not have nephrology here. We do not have vascular surgery here. Impression Primary Impression: Post-op bleeding Disposition: XFER SHT-TRM HOSP Condition: Stable Admissions Decision to Admit Reason: Admit from ER (General) Decision to Admit/Date: Nov 01, 2021 Time/Decision to Admit Time: 21:14 Departure-Patient Inst. Referrals: [facility] (PCP) Primary Care Physician MARY LOU TAO DO (Family) Primary Care Physician DEXTER JORDAN APRN Nov 01, 2021 20:19
[2021-11-01] MEDS ORDERED: HYDROmorphone 2 MG/ML VIAL (DILAUDID) ONE (20:26)
[2021-11-01 20:36] LABS: BASOPHILS % (AUTO) 0 % (0-10); EOSINOPHILS # (AUTO) 0.5 10^3/uL (0.0-0.3); EOSINOPHILS % (AUTO) 5 % (0-10); HEMATOCRIT 24 % (40-54); HEMOGLOBIN 7.7 g/dL (13.3-17.7); LYMPHOCYTES # (AUTO) 3.3 10^3/uL (1.0-4.0); LYMPHOCYTES % (AUTO) 30 % (12-44); MEAN CORPUSCULAR HEMOGLOBIN 33 pg (25-34); MEAN CORPUSCULAR HGB CONC 32 g/dL (32-36); MEAN CORPUSCULAR VOLUME 101 fL (80-99); MEAN PLATELET VOLUME 10.4 fL (9.0-12.2); MONOCYTES # (AUTO) 2.2 10^3/uL (0.0-1.0); MONOCYTES % (AUTO) 20 % (0-12); NEUTROPHILS # (AUTO) 4.9 10^3/uL (1.8-7.8); NEUTROPHILS % (AUTO) 45 % (42-75); PLATELET COUNT 214 10^3/uL (130-400); WHITE BLOOD COUNT 11.1 10^3/uL (4.3-11.0)
[2021-11-01 20:50] LABS: INR 1.2 (0.8-1.4); PROTHROMBIN TIME PATIENT 15.3 SEC (12.2-14.7)
[2021-11-01 20:58] LABS: ALANINE AMINOTRANSFERASE 15 U/L (0-55); ALBUMIN 3.3 GM/DL (3.2-4.5); ALKALINE PHOSPHATASE 37 U/L (40-136); BILIRUBIN,TOTAL 0.4 MG/DL (0.1-1.0); BUN/CREATININE RATIO 5; CALCIUM 8.3 MG/DL (8.5-10.1); CARBON DIOXIDE 19 MMOL/L (21-32); CHLORIDE 100 MMOL/L (98-107); CREATININE SERUM 8.04 MG/DL (0.60-1.30); GFR ESTIMATED 7; GLUCOSE 126 MG/DL (70-105); POTASSIUM 4.7 MMOL/L (3.6-5.0); SODIUM 138 MMOL/L (135-145)
[2021-11-01] MEDS ORDERED: IOHEXOL 350 MG/ML 150 ML (OMNIPAQUE 350) VIAL IV ONE (21:15)
[2021-11-01] MEDS ORDERED: CATHETER FLUSH 10 ML SYR IV PRN (21:15)
[2021-11-01] MEDS ORDERED: NS 100 ML (IVPB) BAG IV ONE (21:15)
[2021-11-01] MEDS ORDERED: HOLD METFORMIN - RECEIVED CONTRAST 20 ML VIAL IV SCH (21:15)
--- NOTE | 2021-11-01 21:25 | Diagnostic Imaging Report ---
INDICATION: Right hematoma at catheter site, recent catheterization. EXAMINATION: CTA of the abdominal aorta and pelvis and lower extremities performed. COMPARISON: There is no prior study for comparison. TECHNIQUE: Axial slices were obtained with sagittal and coronal reconstructions and MIP reconstructions. Dose reduction protocol was used. FINDINGS: Visualized portions of the lung bases are clear. There is no pleural fluid collection. There is no free intraperitoneal air. The liver shows no focal lesion. Gallbladder is absent. Spleen, adrenals and pancreas are normal. The kidneys, bilaterally, show evidence of polycystic kidney disease with bilateral renal atrophy. There is no retroperitoneal mass or adenopathy. There is no ascites or abnormal fluid collection. There is no retroperitoneal hematoma or hemoperitoneum. There are uncomplicated sigmoid diverticuli. CTA images demonstrate abdominal aorta to be patent and without evidence of aneurysmal disease. The celiac trunk and SMA are widely patent. Renal arteries are patent on both sides but the kidneys are atrophic. The inferior mesenteric artery is patent. The common iliac arteries, internal iliac arteries and external iliac arteries are patent. The common femoral arteries and femoral bifurcations are patent. The profunda femoris artery and SFA are patent on both sides and without stenosis or pseudoaneurysm. Popliteal arteries and trifurcations appear patent. All three tibial vessels are patent to the lower leg. There is a large hematoma in the right groin anteriorly. This does not extend into the retroperitoneum. The hematoma in the right upper thigh measured about 16.4 x 7.5 cm in the axial plane and about 20 cm in cephalocaudal dimension. There is diffuse edema throughout the right thigh. IMPRESSION: 1. There is a large right groin and right thigh hematoma, as described above, with diffuse edema in the right thigh. There is no evidence of pseudoaneurysm or AV fistula. The hematoma does not extend into the retroperitoneum. No significant arterial stenosis or occlusion is seen. 2. There is evidence of polycystic kidney disease with atrophy of both kidneys and there are uncomplicated sigmoid diverticuli. Dictated by: Dictated on workstation # [id number]
[2021-11-01 21:54] LABS: EOSINOPHILS % (MANUAL) 7 %; HYPOCHROMASIA SLIGHT; LYMPHOCYTES % (MANUAL) 27 %; MICROCYTOSIS SLIGHT; MONOCYTES % (MANUAL) 21 %; NEUTROPHILS % (MANUAL) 45 %
[2021-11-01 21:55] VITALS: BP 118/61
[2021-11-01 21:55] LABS: ELLIPT/OVALOCYTES SLIGHT
[2021-11-01 21:56] LABS: BURR CELLS SLIGHT
== END 2021-11-01 21:55 | disposition short-term general hospital (02) ==
LOC: EDUNIT# 20:00 → ER 20:15
DX: I97.610 Postprocedural hemorrhage of a circulatory system organ or structure following a cardiac catheterization (principal)
CPT/HCPCS: 36430; 75635; 80053; 85007; 85027; 85610; 85730; 86850; 86900; 86901; 86920; 99291; G0480; P9016; 36415; 80320

== ENCOUNTER 2021-11-11 09:34 | Emergency (ER) | payer MEDICARE, MEDICAID ==
[~2021-11-11] VITALS: Ht 182 cm; Wt 210.0 kg
[2021-11-11 09:46] VITALS: BP 165/97
--- NOTE | 2021-11-11 09:46 | ED General ---
General Stated Complaint: DRAIN FELL OUT Source of Information: Patient, EMS Exam Limitations: No Limitations History of Present Illness Date Seen by Provider: Nov 11, 2021 Time Seen by Provider: 09:25 Initial Comments Patient to the ER by EMS from home with chief complaint that he thinks the drain out of his right leg got pulled. He emptied it this morning and it has about 15 to 30 cc of serosanguineous drainage in it. EMS remarks that he has gained that fluid even since they picked him up. They did notice the stitch was pulled out a little bit. Patient had a heart cath last week on Thursday by Dr. Manzanares. He has a history of end-stage renal disease on hemodialysis, hypertension, hyperlipidemia. Cardiac catheterization demonstrated mild diffuse coronary ectasia and nonobstructive disease with a hypertensive heart and mildly elevated left ventricular end-diastolic pressure. The patient did not complete his hemodialysis today. Allergies and Home Medications Allergies Coded Allergies: No Known Drug Allergies (Unverified , 08/27/21) Patient Home Medication List Home Medication List Reviewed: Yes Acetaminophen (Acetaminophen) 500 Mg Tablet, 1,000 MG PO Q6H PRN for PAIN-MILD (1-4), (Reported) Entered as Reported by: LUIS FELIPE GARRETT on 10/30/21 0854 Albuterol Sulfate (Ventolin Hfa) 1 Puff Puff, 2 PUFF INH Q4H, (Reported) Entered as Reported by: LUIS FELIPE GARRETT on 10/30/21 0854 Allopurinol (Allopurinol) 100 Mg Tablet, 100 MG PO DAILY, (Reported) Entered as Reported by: LUIS FELIPE GARRETT on 10/30/21 0854 Amlodipine Besylate (Amlodipine Besylate) 5 Mg Tablet, 5 MG PO DAILY, (Reported) Entered as Reported by: LUIS FELIPE GARRETT on 10/30/21 0854 Apixaban (Eliquis) 2.5 Mg Tablet, 2.5 MG PO BID, (Reported) Entered as Reported by: LUIS FELIPE GARRETT on 10/30/21 0854 Cholecalciferol (Vitamin D3) (Vitamin D3) 10 Mcg (400 Unit) Tab.chew, 10 MCG PO DAILY, (Reported) Entered as Reported by: LUIS FELIPE GARRETT on 10/30/21 0854 Ferric Citrate (Auryxia) 210 Mg Iron Tablet, 210 MG PO BID, (Reported) Entered as Reported by: LUIS FELIPE GARRETT on 10/30/21853 Lisinopril (Lisinopril) 20 Mg Tablet, 20 MG PO DAILY, (Reported) Entered as Reported by: LUIS FELIPE GARRETT on 10/30/21 08 Montelukast Sodium (Singulair) 10 Mg Tablet, 10 MG PO DAILY, (Reported) Entered as Reported by: LUIS FELIPE GARRETT on 10/30/21853 Ondansetron (Ondansetron Odt) 4 Mg Tab.rapdis, 4 MG PO DAILY PRN for NAUS EA/VOMITING, (Reported) Entered as Reported by: LUIS FELIPE GARRETT on 10/30/21 08 Pantoprazole Sodium (Pantoprazole Sodium) 40 Mg Tablet.dr, 40 MG PO DAILY, (Reported) Entered as Reported by: LUIS FELIPE GARRETT on 10/30/21 08 Sevelamer Carbonate (Renvela) 800 Mg Tablet, 800 MG PO TID, (Reported) Entered as Reported by: LUIS FELIPE GARRETT on 10/30/21853 Sodium Zirconium Cyclosilicate (Lokelma) 10 Gram Powd.pack, 10 GM PO, (Reported) Entered as Reported by: LUIS FELIPE GARRETT on 10/30/21 0854 Trazodone HCl (Trazodone HCl) 150 Mg Tablet, 150 MG PO HS, (Reported) Entered as Reported by: LUIS FELIPE GARRETT on 10/30/21853 Review of Systems Review of Systems Constitutional: No chills, No diaphoresis EENTM: No ear discharge, No ear pain Respiratory: No cough, No short of breath Cardiovascular: No edema, No palpitations Gastrointestinal: No abdominal pain, No constipation, No diarrhea, No nausea Genitourinary: No discharge, No dysuria Hematologic/Lymphatic: Anemia Immunological/Allergic: no symptoms reported All Other Systems Reviewed Negative Unless Noted: Yes Past Xcideof-Ztmfxs-Oluvfn Hx Patient Social History Tobacco Use?: No Use of E-Cig and/or Vaping dev: No Immunizations Up To Date First/Initial COVID19 Vaccinat: UNNOWN DATE Second COVID19 Vaccination Miguel: UNNOWN DATE Third COVID19 Vaccination Date: UNNOWN DATE Past Medical History Gallbladder Currently Using CPAP: No Atrial Fibrillation, Hypertension Renal Failure Gastroesophageal Reflux Skin Physical Exam Vital Signs Vital Signs - First Documented 11/11/21 09:46 Temp 37.2 Pulse 95 Resp 15 B/P (MAP) 165/97 (119) Pulse Ox 89 O2 Delivery Room Air O2 Flow Rate 2.00 Capillary Refill : Height, Weight, BMI Height: '" Weight: lbs. oz. kg; 27.00 BMI Method: General Appearance: No Apparent Distress, WD/WN Eyes: Bilateral Eye Normal Inspection, Bilateral Eye PERRL, Bilateral Eye EOMI HEENT: PERRL/EOMI, TMs Normal, Normal ENT Inspection, Pharynx Normal, Moist Mucous Membranes Neck: Normal Inspection, Non Tender Respiratory: Lungs Clear, Normal Breath Sounds, No Accessory Muscle Use, No Respiratory Distress Extremity: Normal Capillary Refill, Swelling (Swelling, edematous fluid collection in the right groin with some tenderness and minimal erythema. Weeping a small amount of thin serosanguineous fluid from around the JAYME drain.) Neurologic/Psychiatric: Alert, Oriented x3 Skin: Ecchymosis (Right thigh) Progress/Results/Core Measures Suspected Sepsis SIRS Temperature: Pulse: Respiratory Rate: Laboratory Tests 11/11/21 10:03: White Blood Count 12.8H Blood Pressure / Mean: Laboratory Tests 11/11/21 10:03: Creatinine 10.32H, Platelet Count 277 Results/Orders Lab Results Laboratory Tests Test 11/11/21 10:03 Range/Units White Blood Count 12.8 H 4.3-11.0 10^3/uL Red Blood Count 2.88 L 4.30-5.52 10^6/uL Hemoglobin 8.8 L 13.3-17.7 g/dL Hematocrit 26 L 40-54 % Mean Corpuscular Volume 92 80-99 fL Mean Corpuscular Hemoglobin 31 25-34 pg Mean Corpuscular Hemoglobin Concent 33 32-36 g/dL Red Cell Distribution Width 14.0 10.0-14.5 % Platelet Count 277 130-400 10^3/uL Mean Platelet Volume 8.8 L 9.0-12.2 fL Immature Granulocyte % (Auto) 0 % Neutrophils (%) (Auto) 83 H 42-75 % Lymphocytes (%) (Auto) 5 L 12-44 % Monocytes (%) (Auto) 9 0-12 % Eosinophils (%) (Auto) 2 0-10 % Basophils (%) (Auto) 0 0-10 % Neutrophils # (Auto) 10.6 H 1.8-7.8 10^3/uL Lymphocytes # (Auto) 0.7 L 1.0-4.0 10^3/uL Monocytes # (Auto) 1.1 H 0.0-1.0 10^3/uL Eosinophils # (Auto) 0.3 0.0-0.3 10^3/uL Basophils # (Auto) 0.1 0.0-0.1 10^3/uL Immature Granulocyte # (Auto) 0.1 0.0-0.1 10^3/uL Neutrophils % (Manual) 82 % Lymphocytes % (Manual) 6 % Monocytes % (Manual) 9 % Eosinophils % (Manual) 3 % Anisocytosis SLIGHT Sodium Level 131 L 135-145 MMOL/L Potassium Level 5.3 H 3.6-5.0 MMOL/L Chloride Level 89 L 98-107 MMOL/L Carbon Dioxide Level 27 21-32 MMOL/L Anion Gap 15 H 5-14 MMOL/L Blood Urea Nitrogen 55 H 7-18 MG/DL Creatinine 10.32 H 0.60-1.30 MG/DL Estimat Glomerular Filtration Rate 5 BUN/Creatinine Ratio 5 Glucose Level 87 70-105 MG/DL Calcium Level 8.7 8.5-10.1 MG/DL My Orders Orders - DIEGO COVARRUBIAS Cbc With Automated Diff (11/11/21 09:46) Basic Metabolic Panel (11/11/21 09:46) Manual Differential (11/11/21 10:03) Hydrocodone/Apap 5/325 Tablet (Lortab 5 (11/11/21 12:00) Ondansetron Injection (Zofran Injectio (11/11/21 12:30) Medications Given in ED Current Medications Medications Dose Ordered Sig/Yoan Route Start Time Stop Time Status Last Admin Dose Admin Acetaminophen/ Hydrocodone Bitart 1 ea ONCE ONCE PO 11/11/21 12:00 11/11/21 12:01 DC 11/11/21 12:09 1 EA Vital Signs/I&O 11/11/21 11/11/21 09:46 13:11 Temp 37.2 Pulse 95 74 Resp 15 18 B/P (MAP) 165/97 (119) Pulse Ox 89 92 O2 Delivery Room Air O2 Flow Rate 2.00 Capillary Refill : Progress Note #1: Time: 09:45 Progress Note Will empty the Guillermo-Briggs bulb and observe. It appears to still be in place and may even be draining appropriately. Wound site looks okay with the normal complement of ecchymoses, swelling in his right groin. Progress Note #2: Time: 12:13 Progress Note JAYME drained: Discussed the case with Dr. Manzanares who has not followed with the patient since his transport about a week ago for exsanguination from his right groin. Recommended we speak to the surgeon. He was transferred to the care of Dr. Patel so we attempted to put in a consult and left a voicemail with Yogesh to get vascular surgery to call us back. Progress Note #3: Time: 12:25 Progress Note Yogesh Triage returned our phone call and will page Dr. Patel. Progress Note #4: Time: 12:30 Progress Note Discussed the case with Dr. Patel who agrees to follow-up the patient later in the week. Leave the JAYME tube in place. Will dress the site and put an ABD pad down to keep it dry. Patient will call for follow-up appointment. Departure Impression Primary Impression: Bleeding from Guillermo-Briggs drain Qualified Codes: T85.838A - Hemorrhage due to other internal prosthetic devices, implants and grafts, initial encounter Disposition: 01 HOME, SELF-CARE Condition: Stable Departure-Patient Inst. Decision time for Depature: 12:41 Referrals: [facility] (PCP) Primary Care Physician MARY LOU TAO DO (Family) Primary Care Physician Patient Instructions: Guillermo-Briggs Drain Add. Discharge Instructions: Continue to clean and keep the site around your drain tube dry. Change the dressing or use bulky dressing such as ABD pads to keep her skin dry. Make a follow-up appointment with Dr. Patel later in the week. DIEGO COVARRUBIAS Nov 11, 2021 09:46
[2021-11-11 10:09] LABS: BASOPHILS # (AUTO) 0.1 10^3/uL (0.0-0.1); BASOPHILS % (AUTO) 0 % (0-10); EOSINOPHILS # (AUTO) 0.3 10^3/uL (0.0-0.3); EOSINOPHILS % (AUTO) 2 % (0-10); HEMATOCRIT 26 % (40-54); HEMOGLOBIN 8.8 g/dL (13.3-17.7); LYMPHOCYTES # (AUTO) 0.7 10^3/uL (1.0-4.0); LYMPHOCYTES % (AUTO) 5 % (12-44); MEAN CORPUSCULAR HEMOGLOBIN 31 pg (25-34); MEAN CORPUSCULAR HGB CONC 33 g/dL (32-36); MEAN CORPUSCULAR VOLUME 92 fL (80-99); MEAN PLATELET VOLUME 8.8 fL (9.0-12.2); MONOCYTES # (AUTO) 1.1 10^3/uL (0.0-1.0); MONOCYTES % (AUTO) 9 % (0-12); NEUTROPHILS # (AUTO) 10.6 10^3/uL (1.8-7.8); NEUTROPHILS % (AUTO) 83 % (42-75); PLATELET COUNT 277 10^3/uL (130-400); WHITE BLOOD COUNT 12.8 10^3/uL (4.3-11.0)
[2021-11-11 10:22] LABS: ANISOCYTOSIS SLIGHT; EOSINOPHILS % (MANUAL) 3 %; LYMPHOCYTES % (MANUAL) 6 %; MONOCYTES % (MANUAL) 9 %; NEUTROPHILS % (MANUAL) 82 %
[2021-11-11 11:46] LABS: POTASSIUM 5.3 MMOL/L (3.6-5.0)
[2021-11-11 11:47] LABS: CALCIUM 8.7 MG/DL (8.5-10.1)
[2021-11-11 11:52] LABS: CREATININE SERUM 10.32 MG/DL (0.60-1.30)
[2021-11-11] MEDS ORDERED: HYDROcodone/APAP 5 MG/325 MG (LORTAB) TAB PO ONE (12:00)
[2021-11-11] MEDS ORDERED: ONDANSETRON 4 MG/2 ML (SDV) Z0FRAN IVP ONE (12:30)
== END 2021-11-11 13:15 | disposition home or self-care (01) ==
LOC: EDUNIT# 09:34 → ER 09:35
DX: T85.838A Hemorrhage due to other internal prosthetic devices, implants and grafts, initial encounter (principal)
CPT/HCPCS: 36415; 80048; 85007; 85027

== ENCOUNTER 2021-12-03 11:18 | Inpatient (IN) | payer MEDICARE, MEDICAID ==
[~2021-12-03] VITALS: Ht 182 cm; Wt 91.0 kg
[2021-12-03 11:49] LABS: BASOPHILS # (AUTO) 0.1 10^3/uL (0.0-0.1); BASOPHILS % (AUTO) 1 % (0-10); EOSINOPHILS # (AUTO) 0.3 10^3/uL (0.0-0.3); EOSINOPHILS % (AUTO) 3 % (0-10); HEMATOCRIT 36 % (40-54); HEMOGLOBIN 11.5 g/dL (13.3-17.7); LYMPHOCYTES # (AUTO) 1.5 10^3/uL (1.0-4.0); LYMPHOCYTES % (AUTO) 20 % (12-44); MEAN CORPUSCULAR HEMOGLOBIN 30 pg (25-34); MEAN CORPUSCULAR HGB CONC 32 g/dL (32-36); MEAN CORPUSCULAR VOLUME 95 fL (80-99); MEAN PLATELET VOLUME 9.9 fL (9.0-12.2); MONOCYTES % (AUTO) 13 % (0-12); NEUTROPHILS # (AUTO) 4.6 10^3/uL (1.8-7.8); NEUTROPHILS % (AUTO) 62 % (42-75); PLATELET COUNT 312 10^3/uL (130-400); WHITE BLOOD COUNT 7.4 10^3/uL (4.3-11.0)
--- NOTE | 2021-12-03 11:58 | ED Cardiac General ---
History of Present Illness General Chief Complaint: Cardiac/General Problems Stated Complaint: IRR HEART RATE Nursing Triage Note: pt presents to ed via pov from [facility] for afib/rvr. pt was being seen at [facility] for sinus infection. pt reports dizziness. Source: patient, old records Exam Limitations: no limitations History of Present Illness Date Seen by Provider: Dec 03, 2021 Time Seen by Provider: 11:37 Initial Comments This is a 56-year-old male who was referred to the ER from dialysis today for concerns of atrial fibrillation with RVR. He has a history of paroxysmal A. fib currently on Eliquis 2.5 twice daily he is ESRD with dialysis on Thursday, , Thursday. He was able to complete full dialysis session today. In the past he has taken diltiazem for his atrial fibrillation which he states has wo rked well for him. States he was taken off this 2 years ago after a hernia surgery and he was never restarted. He has not had any issues to his knowledge with his atrial fibrillation until today. He is also complaining of a sinus infection for the past 2 days he has tenderness in his frontal and maxillary sinus and postnasal drip. No fever, chills, cough, shortness of breath, ab dominal pain. He does have chronic back pain and would like something at this time due to hardness of ED cot. Allergies and Home Medications Allergies Coded Allergies: No Known Drug Allergies (Unverified , 08/27/21) Patient Home Medication List Home Medication List Reviewed: Yes Allopurinol (Allopurinol) 100 Mg Tablet, 100 MG PO DAILY, (Reported) Entered as Reported by: LUIS FELIPE GARRETT on 10/30/21853 Last Action: Continued Amlodipine Besylate (Amlodipine Besylate) 5 Mg Tablet, 5 MG PO DAILY, (Reported) Entered as Reported by: LUIS FELIPE GARRETT on 10/30/21853 Last Action: Held Apixaban (Eliquis) 2.5 Mg Tablet, 2.5 MG PO BID, (Reported) Entered as Reported by: LUIS FELIPE GARRETT on 10/30/21853 Last Action: Continued Cholecalciferol (Vitamin D3) (Vitamin D3) 10 Mcg (400 Unit) Tab.chew, 10 MCG PO DAILY, (Reported) Entered as Reported by: LUIS FELIPE GARRETT on 10/30/21853 Last Action: Held Cyanocobalamin (Vitamin B-12) (Vitamin B-12) 1,000 Mcg Tablet, 1,000 MCG PO DAILY, (Reported) Entered as Reported by: MARY LOU CIFUENTES on 12/03/211616 Last Action: Held Escitalopram Oxalate (Escitalopram Oxalate) 20 Mg Tablet, 20 MG PO HS, (Reported) Entered as Reported by: MARY LOU CIFUENTES on 12/03/211616 Last Action: Converted Escitalopram Oxalate (Escitalopram Oxalate) 10 Mg Tablet, 10 MG PO DAILY, (Reported) Entered as Reported by: MARY LOU CIFUENTES on 12/03/211616 Last Action: Converted Famotidine (Famotidine) 20 Mg Tablet, 20 MG PO HS, (Reported) Entered as Reported by: MARY LOU CIFUENTES on 12/03/211616 Last Action: Continued Ferric Citrate (Auryxia) 210 Mg Iron Tablet, 420 MG PO WM, (Reported) Entered as Reported by: LUIS FELIPE GARRETT on 10/30/21853 Last Action: Held Lisinopril (Lisinopril) 20 Mg Tablet, 10 MG PO HS, (Reported) Entered as Reported by: LUIS FELIPE GARRETT on 10/30/21853 Last Action: Held Montelukast Sodium (Singulair) 10 Mg Tablet, 10 MG PO HS, (Reported) Entered as Reported by: LUIS FELIPE GARRETT on 10/30/21853 Last Action: Continued Pantoprazole Sodium (Pantoprazole Sodium) 40 Mg Tablet.dr, 40 MG PO DAILY, (Repo rted) Entered as Reported by: LUIS FELIPE GARRETT on 10/30/21853 Last Action: Continued Trazodone HCl (Trazodone HCl) 100 Mg Tablet, 200 MG PO HS, (Reported) Entered as Reported by: MARY LOU CIFUENTES on 12/03/211616 Last Action: Continued Discontinued Medications Acetaminophen (Acetaminophen) 500 Mg Tablet, 1,000 MG PO Q6H PRN for PAIN-MILD (1-4), (Reported) Discontinued Reason: Duplicate Order Entered as Reported by: LUIS FELIPE GARRETT on 10/30/21853 Last Action: Discontinued Albuterol Sulfate (Ventolin Hfa) 1 Puff Puff, 2 PUFF INH Q4H, (Reported) Discontinued Reason: No Longer Taking Entered as Reported by: LUIS FELIPE GARRETT on 10/30/21853 Last Action: Discontinued Ondansetron (Ondansetron Odt) 4 Mg Tab.rapdis, 4 MG PO DAILY PRN for NAUSEA/VOMITING, (Reported) Discontinued Reason: No Longer Taking Entered as Reported by: LUIS FELIPE GARRETT on 10/30/21853 Last Action: Discontinued Sevelamer Carbonate (Renvela) 800 Mg Tablet, 800 MG PO TID, (Reported) Discontinued Reason: No Longer Taking Entered as Reported by: LUIS FELIPE GARRETT on 10/30/21853 Last Action: Discontinued Sodium Zirconium Cyclosilicate (Lokelma) 10 Gram Powd.pack, 10 GM PO, (Reported) Discontinued Reason: No Longer Taking Entered as Reported by: LUIS FELIPE GARRETT on 10/30/21853 Last Action: Discontinued Trazodone HCl (Trazodone HCl) 150 Mg Tablet, 150 MG PO HS, (Reported) Discontinued Reason: No Longer Taking Entered as Reported by: LUIS FELIPE GARRETT on 10/30/21853 Last Action: Discontinued Review of Systems Review of Systems Constitutional: see HPI Past Gfsepow-Vyetrb-Kugjhx Hx Immunizations Up To Date First/Initial COVID19 Vaccinat: UNNOWN DATE Second COVID19 Vaccination Miguel: UNNOWN DATE Third COVID19 Vaccination Date: UNNOWN DATE Past Medical History Surgery/Hospitalization HX: HEART CATH, URETHRA SX, GALLBALDDER, DIALYSIS Gallbladder Currently Using CPAP: No Atrial Fibrillation, Hypertension Renal Failure Gastroesophageal Reflux Skin Physical Exam Vital Signs Vital Signs - First Documented 12/03/21 11:20 Temp 37.0 Pulse 140 Resp 18 B/P (MAP) 116/94 (101) Pulse Ox 99 Capillary Refill : Less Than 3 Seconds Height, Weight, BMI Height: '" Weight: lbs. oz. kg; 26.00 BMI Method: General Appearance: No Apparent Distress, WD/WN HEENT: PERRL/EOMI, Normal ENT Inspection, Pharynx Normal Neck: Full Range of Motion, Normal Inspection, Supple Respiratory: Lungs Clear, Normal Breath Sounds, No Accessory Muscle Use, No Respiratory Distress Cardiovascular: No Murmur, Normal Peripheral Pulses, Irregularly Irregular, Tachycardia Gastrointestinal: Normal Bowel Sounds, Non Tender, Soft Extremity: Normal Capillary Refill, Normal Inspection, Normal Range of Motion Neurologic/Psychiatric: Alert, Oriented x3, No Motor/Sensory Deficits, Normal Mood/Affect Skin: Normal Color, Warm/Dry Progress/Results/Core Measures Results/Orders Lab Results Laboratory Tests Test 12/03/21 11:30 12/03/21 12:27 Range/Units White Blood Count 7.4 4.3-11.0 10^3/uL Red Blood Count 3.82 L 4.30-5.52 10^6/uL Hemoglobin 11.5 L 13.3-17.7 g/dL Hematocrit 36 L 40-54 % Mean Corpuscular Volume 95 80-99 fL Mean Corpuscular Hemoglobin 30 25-34 pg Mean Corpuscular Hemoglobin Concent 32 32-36 g/dL Red Cell Distribution Width 15.9 H 10.0-14.5 % Platelet Count 312 130-400 10^3/uL Mean Platelet Volume 9.9 9.0-12.2 fL Immature Granulocyte % (Auto) 0 % Neutrophils (%) (Auto) 62 42-75 % Lymphocytes (%) (Auto) 20 12-44 % Monocytes (%) (Auto) 13 H 0-12 % Eosinophils (%) (Auto) 3 0-10 % Basophils (%) (Auto) 1 0-10 % Neutrophils # (Auto) 4.6 1.8-7.8 10^3/uL Lymphocytes # (Auto) 1.5 1.0-4.0 10^3/uL Monocytes # (Auto) 1.0 0.0-1.0 10^3/uL Eosinophils # (Auto) 0.3 0.0-0.3 10^3/uL Basophils # (Auto) 0.1 0.0-0.1 10^3/uL Immature Granulocyte # (Auto) 0.0 0.0-0.1 10^3/uL Prothrombin Time 15.5 H 12.2-14.7 SEC INR Comment 1.2 0.8-1.4 Activated Partial Thromboplast Time 35 24-35 SEC Sodium Level 139 135-145 MMOL/L Potassium Level 3.8 3.6-5.0 MMOL/L Chloride Level 98 98-107 MMOL/L Carbon Dioxide Level 31 21-32 MMOL/L Anion Gap 10 5-14 MMOL/L Blood Urea Nitrogen 17 7-18 MG/DL Creatinine 4.53 H 0.60-1.30 MG/DL Estimat Glomerular Filtration Rate 15 BUN/Creatinine Ratio 4 Glucose Level 94 70-105 MG/DL Calcium Level 9.4 8.5-10.1 MG/DL Corrected Calcium 9.4 8.5-10.1 MG/DL Magnesium Level 2.1 1.6-2.4 MG/DL Total Bilirubin 0.6 0.1-1.0 MG/DL Aspartate Amino Transf (AST/SGOT) 17 5-34 U/L Alanine Aminotransferase (ALT/SGPT) 13 0-55 U/L Alkaline Phosphatase 69 40-136 U/L Total Creatine Kinase 36 30-200 U/L Creatine Kinase MB 1.0 <6.6 NG/ML Myoglobin 236.1 H 10.0-92.0 NG/ML Troponin I 0.037 H <0.028 NG/ML B-Type Natriuretic Peptide 1054.8 H <100.0 PG/ML Total Protein 7.7 6.4-8.2 GM/DL Albumin 4.0 3.2-4.5 GM/DL Influenza Type A (RT-PCR) Not Detected Not Detecte Influenza Type B (RT-PCR) Not Detected Not Detecte SARS-CoV-2 RNA (RT-PCR) Detected H Not Detecte My Orders Orders - ALEX CORONADO [employer] Cbc With Automated Diff (12/03/21 11:44) Magnesium (12/03/21 11:44) Chest 1 View, Ap/Pa Only (12/03/21 11:44) Comprehensive Metabolic Panel (12/03/21 11:44) Myoglobin Serum (12/03/21 11:44) Protime With Inr (12/03/21 11:44) Partial Thromboplastin Time (12/03/21 11:44) O2 (12/03/21 11:44) Monitor-Rhythm Ecg Trace Only (12/03/21 11:44) Ed Iv/Invasive Line Start (12/03/21 11:44) Creatine Kinase (12/03/21 11:44) Creatine Kinase Mb (12/03/21 11:44) Bnp Fleming (12/03/21 11:44) Troponin I Fleming (12/03/21 11:44) Covid 19 Inhouse Test (12/03/21 11:45) Influenza A And B By Pcr (12/03/21 11:45) Ns Iv 500 Ml (Sodium Chloride 0.9%) (12/03/21 12:00) Diltiazem Injection (Cardizem Injection) (12/03/21 12:00) Diltiazem Drip Pre-Mix (Cardizem Drip Pr (12/03/21 12:00) Amoxicillin/Clavulanate Tablet (Augmenti (12/03/21 12:30) Hydrocodone/Apap 5/325 Tablet (Lortab 5 (12/03/21 12:45) General/Regular (12/03/21 Lunch) Ed Admission (Communication) (12/03/21 14:13) Medications Given in ED Current Medications Medications Dose Ordered Sig/Yoan Route Start Time Stop Time Status Last Admin Dose Admin Acetaminophen/ Hydrocodone Bitart 1 ea ONCE ONCE PO 12/03/21 12:45 12/03/21 12:46 DC 12/03/21 12:39 1 EA Amoxicillin/ Clavulanate Potassium 500 mg ONCE ONCE PO 12/03/21 12:30 12/03/21 12:31 DC 12/03/21 12:48 500 MG Diltiazem HCl 5 mg ONCE ONCE IVP 12/03/21 12:00 12/03/21 12:01 DC 12/03/21 12:14 5 MG Sodium Chloride 500 ml @ 0 mls/hr Q0M ONCE IV 12/03/21 12:00 12/03/21 12:01 DC 12/03/21 12:11 500 MLS/HR Vital Signs/I&O 12/03/21 12/03/21 12/03/21 12/03/21 11:20 12:14 12:16 14:08 Temp 37.0 Pulse 140 121 131 101 Resp 18 17 B/P (MAP) 116/94 (101) 115/84 127/100 115/88 Pulse Ox 99 93 Blood Pressure Mean: 101 Progress Progress Note : Progress Note Upon arrival patient is stable, he is awake and alert laughing and joking with staff. No acute chest pain or shortness of breath. 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 Manzanares and he recommended initiating diltiazem 5 mg bolus and starting drip at 10 mg/h, plan to admit patient to hospital and keep n.p.o. If he is unable to cardiovert with antiarrhythmic, will plan for cardioversion in the morning. Plan of care reviewed with patient and he is agreeable with plan. Initially had ordered Augmentin for his sinusitis, his COVID came back positive. Discontinued Augmentin as this is likely the source of his sinus congestion and pain. Initial ECG Impression Date: Dec 03, 2021 Initial ECG Impression Time: 11:30 Initial ECG Rate: 141 Initial ECG Rhythm: A Fib/Flutter Initial ECG Impression: Atrial Fibrillation w/RVR Initial ECG Comparisson: Changed Diagnostic Imaging Plain Films/CT/US/NM/MRI: chest Comments [facility], [place] NAME: MARCIANO PETTIT [facility] REC#: [id number] PT STATUS: REG ER : 1965 PHYSICIAN: ALEX CORONADO APRN ADMIT DATE: 12/03/21/ER Signed Date of Exam:12/03/21 CHEST 1 VIEW, AP/PA ONLY INDICATION: Chest pain. TECHNIQUE: Single view chest 12:09 PM. CORRELATION STUDY: 10/30/2021 FINDINGS: The heart size, mediastinal configuration and pulmonary vascularity are within normal limits. The lungs are clear but mildly hyperinflated. No consolidating infiltrate. There is no significant effusion or pneumothorax. IMPRESSION: 1. Hyperinflated lung ramirez. Negative for acute cardiopulmonary abnormality. Dictated by: Dictated on workstation # [id number] Dict: 12/03/21 1210 Trans: 12/03/21 1429 DO [id number] Interpreted by: RAFIQ NELSON DO Electronically signed by: RAFIQ NELSON DO 12/03/21 1429 Departure Communication (Admissions) Time/Spoke to Admitting Phy: 13:[address] See, he was found to be COVID-positive. We will go ahead and discontinue Augmentin. He is not in any respiratory distress. We will proceed with admission. Time/Spoke to Consulting Phy: 11:54 Dr. Glenna Manzanares presented to the emergency department to evaluate patient. We will plan to admit him on Cardizem drip in hopes he will convert, if he is unable to convert on Cardizem he will be n.p.o. tonight and plan for cardioversion in the morning. Impression Primary Impression: Atrial fibrillation with rapid ventricular response Additional Impressions: ESRD (end stage renal disease) on dialysis COVID-19 Disposition: 09 ADMITTED INPATIENT Condition: Stable Admissions Decision to Admit Reason: Admit from ER (General) Decision to Admit/Date: Dec 03, 2021 Time/Decision to Admit Time: 11:50 Departure-Patient Inst. Referrals: MARY LOU TAO DO (PCP/Family) Primary Care Physician ALEX CORONADO APRN Dec 03, 2021 11:57
[2021-12-03] MEDS ORDERED: NS IV 500 ML 500 ML IV ONE (12:00)
[2021-12-03] MEDS ORDERED: dilTIAZem DRIP PRE-MIX 125 ML IV SCH (12:00)
[2021-12-03 12:05] LABS: INR 1.2 (0.8-1.4); PROTHROMBIN TIME PATIENT 15.5 SEC (12.2-14.7)
[2021-12-03 12:08] LABS: POTASSIUM 3.8 MMOL/L (3.6-5.0)
[2021-12-03 12:09] LABS: CALCIUM 9.4 MG/DL (8.5-10.1)
[2021-12-03 12:10] LABS: TOTAL PROTEIN 7.7 GM/DL (6.4-8.2)
--- NOTE | 2021-12-03 12:11 | Diagnostic Imaging Report ---
INDICATION: Chest pain. TECHNIQUE: Single view chest 12:09 PM. CORRELATION STUDY: 10/30/2021 FINDINGS: The heart size, mediastinal configuration and pulmonary vascularity are within normal limits. The lungs are clear but mildly hyperinflated. No consolidating infiltrate. There is no significant effusion or pneumothorax. IMPRESSION: 1. Hyperinflated lung ramirez. Negative for acute cardiopulmonary abnormality. Dictated by: Dictated on workstation # [id number]
[2021-12-03 12:12] LABS: BILIRUBIN,TOTAL 0.6 MG/DL (0.1-1.0)
[2021-12-03 12:14] LABS: CREATININE SERUM 4.53 MG/DL (0.60-1.30)
[2021-12-03 12:16] LABS: MAGNESIUM 2.1 MG/DL (1.6-2.4)
[2021-12-03] MEDS ORDERED: AUGMENTIN 500 MG TAB (AMOXICILLIN/CLAVULANATE) PO ONE (12:30)
--- NOTE | 2021-12-03 12:35 | Consultation-Cardiology ---
HPI-Cardiology Cardiology Consultation Date of Consultation 12/03/21 Date of Admission Time Seen by Provider: 12:30 Indication: Fibrillation HPI Patient had dialysis today and he was noted to be tachycardic postdialysis and sent to the emergency room. He denied any chest pain, no shortness of breath. No syncope or near syncopal episode. In the emergency room he was noted to be in atrial fibrillation with rapid ventricular response, borderline hypotensive. Home Medications & Allergies Allergies: Coded Allergies: No Known Drug Allergies (Unverified , 08/27/21) Home Medication List Reviewed: Yes [id number] Hx Patient Social History Marital Status: Employed/Student: employed Past Medical History Discussed below Family Medical History Family Medical Hx Noncontributory Review of Systems-General Review of Systems Constitutional: no symptoms reported, see HPI, weakness EENTM: see HPI, no symptoms reported Respiratory: no symptoms reported, see HPI Cardiovascular: see HPI Gastrointestinal: no symptoms reported, see HPI Genitourinary: no symptoms reported, see HPI Musculoskeletal: no symptoms reported, see HPI Skin: no symptoms reported, see HPI Psychiatric/Neurological: No Symptoms Reported, See HPI Reviewed Test Results Reviewed Test Results Lab Laboratory Tests Test 12/03/21 11:30 12/03/21 12:27 Range/Units White Blood Count 7.4 4.3-11.0 10^3/uL Red Blood Count 3.82 L 4.30-5.52 10^6/uL Hemoglobin 11.5 L 13.3-17.7 g/dL Hematocrit 36 L 40-54 % Mean Corpuscular Volume 95 80-99 fL Mean Corpuscular Hemoglobin 30 25-34 pg Mean Corpuscular Hemoglobin Concent 32 32-36 g/dL Red Cell Distribution Width 15.9 H 10.0-14.5 % Platelet Count 312 130-400 10^3/uL Mean Platelet Volume 9.9 9.0-12.2 fL Immature Granulocyte % (Auto) 0 % Neutrophils (%) (Auto) 62 42-75 % Lymphocytes (%) (Auto) 20 12-44 % Monocytes (%) (Auto) 13 H 0-12 % Eosinophils (%) (Auto) 3 0-10 % Basophils (%) (Auto) 1 0-10 % Neutrophils # (Auto) 4.6 1.8-7.8 10^3/uL Lymphocytes # (Auto) 1.5 1.0-4.0 10^3/uL Monocytes # (Auto) 1.0 0.0-1.0 10^3/uL Eosinophils # (Auto) 0.3 0.0-0.3 10^3/uL Basophils # (Auto) 0.1 0.0-0.1 10^3/uL Immature Granulocyte # (Auto) 0.0 0.0-0.1 10^3/uL Prothrombin Time 15.5 H 12.2-14.7 SEC INR Comment 1.2 0.8-1.4 Activated Partial Thromboplast Time 35 24-35 SEC Sodium Level 139 135-145 MMOL/L Potassium Level 3.8 3.6-5.0 MMOL/L Chloride Level 98 98-107 MMOL/L Carbon Dioxide Level 31 21-32 MMOL/L Anion Gap 10 5-14 MMOL/L Blood Urea Nitrogen 17 7-18 MG/DL Creatinine 4.53 H 0.60-1.30 MG/DL Estimat Glomerular Filtration Rate 15 BUN/Creatinine Ratio 4 Glucose Level 94 70-105 MG/DL Calcium Level 9.4 8.5-10.1 MG/DL Corrected Calcium 9.4 8.5-10.1 MG/DL Magnesium Level 2.1 1.6-2.4 MG/DL Total Bilirubin 0.6 0.1-1.0 MG/DL Aspartate Amino Transf (AST/SGOT) 17 5-34 U/L Alanine Aminotransferase (ALT/SGPT) 13 0-55 U/L Alkaline Phosphatase 69 40-136 U/L Total Creatine Kinase 36 30-200 U/L Creatine Kinase MB 1.0 <6.6 NG/ML Myoglobin 236.1 H 10.0-92.0 NG/ML Troponin I 0.037 H <0.028 NG/ML B-Type Natriuretic Peptide 1054.8 H <100.0 PG/ML Total Protein 7.7 6.4-8.2 GM/DL Albumin 4.0 3.2-4.5 GM/DL Physical Exam Physical Exam Vital Signs Vital Signs - First Documented 12/03/21 11:20 Temp 37.0 Pulse 140 Resp 18 B/P (MAP) 116/94 (101) Pulse Ox 99 Capillary Refill : Less Than 3 Seconds Height, Weight, BMI Height: '" Weight: lbs. oz. kg; 26.00 BMI Method: General Appearance: No Apparent Distress, WD/WN Eyes: Bilateral Eye Normal Inspection, Bilateral Eye PERRL, Bilateral Eye EOMI HEENT: PERRL/EOMI, TMs Normal, Normal ENT Inspection, Pharynx Normal, Moist Mucous Membranes Neck: Full Range of Motion, Normal Inspection, Non Tender, Supple, Carotid Bruit Respiratory: Chest Non Tender, Normal Breath Sounds, No Accessory Muscle Use, No Respiratory Distress Cardiovascular: No Edema, No Gallop, No JVD, No Murmur, Normal Peripheral Pulses, Systolic Murmur, Irregularly Irregular, Tachycardia Gastrointestinal: Normal Bowel Sounds, No Organomegaly, No Pulsatile Mass, Non Tender, Soft Back: Normal Inspection, No CVA Tenderness, No Vertebral Tenderness Extremity: Normal Capillary Refill, Normal Inspection, Normal Range of Motion, Non Tender, No Calf Tenderness, No Pedal Edema Neurologic/Psychiatric: Alert, Oriented x3, No Motor/Sensory Deficits, Normal Mood/Affect Skin: Normal Color, Warm/Dry Lymphatic: No Adenopathy A/P-Cardiology Admission Diagnosis Paroxysmal atrial fibrillation Palpitation Tachycardia Hypotension Assessment/Plan Paroxysmal atrial fibrillation, currently in atrial fibrillation with rapid ventricular response Maintained on Eliquis. I bolused him with 500 normal saline and started Cardizem drip Planning for cardioversion if he does not convert overnight. Coronary artery disease, had an abnormal stress test in September 2019, cardiac catheterization done on October 30, 2021 showing mild coronary ectasia, nonobstructive disease with mildly elevated left ventricular end-diastolic pressure 2D echo was done on June 24, 2021 with normal left ventricular size, ejection fraction 60 to 65%, grade 1 diastolic dysfunction, left atrial dilatation, PA pressure 35 mmHg History of recurrent palpitation. Current denies any palpitation Borderline hypotension, probably secondary to tachycardia. Given IV fluid, monitor blood pressure Hyperlipidemia, monitor lipids End-stage kidney disease maintained on hemodialysis. Receiving dialysis on Thursday, and Thursday Mild carotid stenosis, last ultrasound was done in May 2021. Continue to monitor History of depression Tobaccoism, patient has stopped smoking September 2021, encouraged to continue with smoking cessation TITA BANDA MD Dec 03, 2021 12:35
[2021-12-03] MEDS ORDERED: HYDROcodone/APAP 5 MG/325 MG (LORTAB) TAB PO ONE (12:45)
[2021-12-03] MEDS ORDERED: NS IV 500 ML 500 ML IV PRN (14:30)
[2021-12-03] MEDS: dilTIAZem DRIP PRE-MIX 125 ML IV SCH ×2 (16:12→17:54)
[2021-12-03] MEDS ORDERED: ESCI20TA39 PO (16:17)
[2021-12-03] MEDS ORDERED: FAMO20TA5 PO (16:17)
[2021-12-03] MEDS ORDERED: ESCI-2 PO (16:17)
[2021-12-03] MEDS ORDERED: TRAZ-227 PO (16:17)
[2021-12-03] MEDS ORDERED: CYAN-41 PO (16:17)
--- NOTE | 2021-12-03 17:25 | History & Physical ---
HPI History of Present Illness: Patient reports he was sent to the hospital due to high heart rate noted at dialysis. He did not notice symptoms of that. He has a history of a fib, but as far as he knows has not had an episode of a fib in years. He denies chest pain. He does admit mild shortness of breath that he was attributing to cold symptoms. He has had nasal congestion and running with posterior nasal drip for 7-10 days, with cough related to the postnasal drip as well as deep cough at times. He says he gets sinus infections like this not infrequently and so was not suspecting COVID. He has been fully vaccinated per his report, he believes with 3 doses and a booster, but states he won't take another booster because the last made him too sick. He had a cardiac cath in October due to what sounds like abnormal stress test, states he did not need any stents. He did get a hematoma after and was admitted in [place] for several days related to that, had a drain in the hematoma which is no longer there and states it is getting better. He has been back on his Eliquis since the drain was removed. Source: patient Date seen by provider: Dec 03, 2021 Time Seen by Provider: 17:15 Attending Physician Jorge Houser DO PCP Admitting Physician: Hellen See MD Attending Physician: Hellen See MD Consult Date of Admission Dec 03, 2021 at 14:15 Home Medications Home Medications Reviewed patient Home Medication Reconciliation performed by pharmacy medication reconciliations biosolids management technician and/or nursing. Patients Allergies have been reviewed. Allergies Coded Allergies: No Known Drug Allergies (Unverified , 08/27/21) [id number] Hx Patient Social History Marrital Status: Employed/Student: employed Smoking Status: Former Smoker Alcohol Use?: No Substance type: Caffeine Have you traveled recently?: No Immunizations Up To Date Influenza Vaccine Up-to-Date: Yes; Up-to-Date First/Initial COVID19 Vaccinat: UNNOWN DATE Second COVID19 Vaccination Miguel: UNNOWN DATE Third COVID19 Vaccination Date: UNNOWN DATE COVID19 Vaccine Critical Power Install Technician: MODERNA Past Medical History PMHx: Paroxysmal atrial fibrillation ESRD on dialysis, 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 HTN Anxiety Review of Systems ([facility]) Constitutional: No fever EENTM: see HPI Respiratory: see HPI Cardiovascular: No chest pain, No edema Gastrointestinal: No abdominal pain Skin: no symptoms reported Psychiatric/Neurological: Anxiety Reviewed Test Results Reviewed Test Results Lab Laboratory Tests Test 12/03/21 11:30 12/03/21 12:27 Range/Units White Blood Count 7.4 4.3-11.0 10^3/uL Red Blood Count 3.82 L 4.30-5.52 10^6/uL Hemoglobin 11.5 L 13.3-17.7 g/dL Hematocrit 36 L 40-54 % Mean Corpuscular Volume 95 80-99 fL Mean Corpuscular Hemoglobin 30 25-34 pg Mean Corpuscular Hemoglobin Concent 32 32-36 g/dL Red Cell Distribution Width 15.9 H 10.0-14.5 % Platelet Count 312 130-400 10^3/uL Mean Platelet Volume 9.9 9.0-12.2 fL Immature Granulocyte % (Auto) 0 % Neutrophils (%) (Auto) 62 42-75 % Lymphocytes (%) (Auto) 20 12-44 % Monocytes (%) (Auto) 13 H 0-12 % Eosinophils (%) (Auto) 3 0-10 % Basophils (%) (Auto) 1 0-10 % Neutrophils # (Auto) 4.6 1.8-7.8 10^3/uL Lymphocytes # (Auto) 1.5 1.0-4.0 10^3/uL Monocytes # (Auto) 1.0 0.0-1.0 10^3/uL Eosinophils # (Auto) 0.3 0.0-0.3 10^3/uL Basophils # (Auto) 0.1 0.0-0.1 10^3/uL Immature Granulocyte # (Auto) 0.0 0.0-0.1 10^3/uL Prothrombin Time 15.5 H 12.2-14.7 SEC INR Comment 1.2 0.8-1.4 Activated Partial Thromboplast Time 35 24-35 SEC Sodium Level 139 135-145 MMOL/L Potassium Level 3.8 3.6-5.0 MMOL/L Chloride Level 98 98-107 MMOL/L Carbon Dioxide Level 31 21-32 MMOL/L Anion Gap 10 5-14 MMOL/L Blood Urea Nitrogen 17 7-18 MG/DL Creatinine 4.53 H 0.60-1.30 MG/DL Estimat Glomerular Filtration Rate 15 BUN/Creatinine Ratio 4 Glucose Level 94 70-105 MG/DL Calcium Level 9.4 8.5-10.1 MG/DL Corrected Calcium 9.4 8.5-10.1 MG/DL Magnesium Level 2.1 1.6-2.4 MG/DL Total Bilirubin 0.6 0.1-1.0 MG/DL Aspartate Amino Transf (AST/SGOT) 17 5-34 U/L Alanine Aminotransferase (ALT/SGPT) 13 0-55 U/L Alkaline Phosphatase 69 40-136 U/L Total Creatine Kinase 36 30-200 U/L Creatine Kinase MB 1.0 <6.6 NG/ML Myoglobin 236.1 H 10.0-92.0 NG/ML Troponin I 0.037 H <0.028 NG/ML B-Type Natriuretic Peptide 1054.8 H <100.0 PG/ML Total Protein 7.7 6.4-8.2 GM/DL Albumin 4.0 3.2-4.5 GM/DL Influenza Type A (RT-PCR) Not Detected Not Detecte Influenza Type B (RT-PCR) Not Detected Not Detecte SARS-CoV-2 RNA (RT-PCR) Detected H Not Detecte Radiology CXR 12/03/21: IMPRESSION: 1. Hyperinflated lung ramirez. Negative for acute cardiopulmonary abnormality. Physical Exam-([facility]) Physical Exam Vital Signs VS - Last 72 Hours, by Label 12/03/21 12/03/21 12/03/21 12/03/21 11:20 12:14 12:16 14:08 Temp 37.0 Pulse 140 121 131 101 Resp 18 17 B/P (MAP) 116/94 (101) 115/84 127/100 115/88 Pulse Ox 99 93 12/03/21 12/03/21 12/03/21 12/03/21 15:00 15:01 15:10 15:20 Pulse 103 108 99 Resp 28 13 B/P (MAP) 121/93 (102) 123/85 (98) Pulse Ox 96 99 O2 Delivery Room Air Room Air Room Air 12/03/21 12/03/21 12/03/21 12/03/21 15:30 15:40 16:00 16:00 Pulse 106 87 97 Resp 23 16 9 B/P (MAP) 124/103 (110) 124/89 (101) 115/89 (98) Pulse Ox 99 97 97 97 O2 Delivery Room Air Room Air Room Air Room Air 12/03/21 12/03/21 12/03/21 12/03/21 17:00 17:00 17:54 18:00 Temp 37.1 Pulse 123 76 96 Resp 26 26 B/P (MAP) 137/75 (95) 117/85 (96) Pulse Ox 98 96 O2 Delivery Room Air Room Air Capillary Refill : Less Than 3 Seconds General Appearance: WD/WN, no apparent distress Respiratory: lungs clear, normal breath sounds Cardiovascular: irregularly irregular Gastrointestinal: normal bowel sounds, non tender, soft Extremities: No pedal edema; other (slightly indurated, mildly erythematous large hematoma in right groin, mildly ttp) Neurologic/Psychiatric: alert, normal mood/affect Skin: normal color, warm/dry Assessment/Plan Assessment/Plan Admission Status: Inpatient Order (span 2 midnights) Reason for Inpatient Admission: A fib requiring drip (1) Atrial fibrillation with rapid ventricular response Status: Acute Assessment & Plan: Started on cardizem drip. Cardiology consulted, appreciate recommendations. Continue home Eliquis. (2) ESRD (end stage renal disease) on dialysis Status: Chronic Assessment & Plan: Had dialysis today, aiming for a fib treatment and d/c prior to next dialysis. (3) COVID-19 Status: Acute Assessment & Plan: No clear evidence of pneumonia, no hypoxia, 7 or more days since onset of symptoms so outside window for specific treatment for risk reduction. Monitor closely. (4) Hypertension Status: Chronic Assessment & Plan: Holding home antihypertensives while on cardizem drip. Qualifiers: Qualified Codes: I10 - Essential (primary) hypertension (5) Paroxysmal atrial fibrillation Status: Chronic (6) GERD (gastroesophageal reflux disease) Status: Chronic Assessment & Plan: Home meds (7) Depression Status: Chronic Assessment & Plan: Home meds (8) Anxiety Status: Chronic Assessment & Plan: Home meds (9) DVT prophylaxis Status: Acute Assessment & Plan: Home Eliquis HELLEN SEE MD Dec 03, 2021 17:25
--- NOTE | 2021-12-03 17:31 | Tele-ICU Consult ---
History of Present Illness History of Present Illness Date Seen by Provider: Dec 03, 2021 Time Seen by Provider: 17:31 Date of Admission (Tele-ICU Physician , consultation) Available chart/ vitals / labs / Images reviewed H&P is from ER notes Patient's information available about PMH, Shx, Fhx allergy reviewed inEMR. ROS as per chart and RN report Now in ICU, hemodynamically stable Video assessment done using teleICU camera, rest of exam as per RN Discussed with RN. Consultants: Hospital course: (12/03) 56M Admitted for rapid afib after dialysis. Cardizem gtt. If does not convert overnight will plan for cardioversion tomorrow. 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 eliquis to resume Stress Ulcer Prophylaxis: na Plans in collaboration with bedside consultants and IM MDs. Discussed with RN to reach out if any questions or concerns A total of 20 minutes of critical care time was devoted to this patient today, required to treat and/or prevent further deterioration of critical care condition ( as above ) . Reason for Visit: Fibrillation Allergies and Home Medications Allergies Coded Allergies: No Known Drug Allergies (Unverified , 08/27/21) Home Medications Allopurinol 100 Mg Tablet, 100 MG PO DAILY, (Reported) Amlodipine Besylate 5 Mg Tablet, 5 MG PO DAILY, (Reported) Apixaban 2.5 Mg Tablet, 2.5 MG PO BID, (Reported) Cholecalciferol (Vitamin D3) 10 Mcg (400 Unit) Tab.chew, 10 MCG PO DAILY, (Reported) Cyanocobalamin (Vitamin B-12) 1,000 Mcg Tablet, 1,000 MCG PO DAILY, (Reported) Escitalopram Oxalate 20 Mg Tablet, 20 MG PO HS, (Reported) Escitalopram Oxalate 10 Mg Tablet, 10 MG PO DAILY, (Reported) Famotidine 20 Mg Tablet, 20 MG PO HS, (Reported) Ferric Citrate 210 Mg Iron Tablet, 420 MG PO WM, (Reported) TAKES 2 (210MG) TABS Lisinopril 20 Mg Tablet, 10 MG PO HS, (Reported) TAKES OF A 20MG Montelukast Sodium 10 Mg Tablet, 10 MG PO HS, (Reported) Pantoprazole Sodium 40 Mg Tablet.dr, 40 MG PO DAILY, (Reported) Trazodone HCl 100 Mg Tablet, 200 MG PO HS, (Reported) TAKES 2 (100MG) TABS Past Medical/Social/Family Hx Patient Social History Marrital Status: Employed/Student: employed Tobacco Use?: No Smoking Status: Former Smoker Use of E-Cig and/or Vaping dev: No Substance use?: Yes Substance type: Caffeine Substance frequency: Daily Alcohol Use?: No Pt stated abuse/neglect: No Immunizations Up To Date Influenza Vaccine Up-to-Date: Yes; Up-to-Date First/Initial COVID19 Vaccinat: UNNOWN DATE Second COVID19 Vaccination Miguel: UNNOWN DATE Tetanus Booster (TDap): More Than 5 Years Hepatitis A: No Hepatitis B: No TB Skin Test: None Current Status Advance Directives: No Communicates: Verbally Primary Language: Nepali Preferred Spoken Language: Nepali Is interpretation needed?: No Sensory deficits: Vision impairment, Hearing impairment Implanted or Applied Medical D: None Review of Systems Constitutional: see HPI Focused Exam Height, Weight, BMI Height: '" Weight: lbs. oz. kg; 26.35 BMI Method: Exam Exam Patient acknowledged, consented, and participated in this virtual visit which was conducted using real time audio/video Vital Signs Date Time Temp Pulse Resp B/P (MAP) Pulse Ox O2 Delivery O2 Flow Rate FiO2 12/03/21 17:00 37.1 12/03/21 16:00 97 9 115/89 (98) 97 Room Air 12/03/21 16:00 97 Room Air 12/03/21 15:40 87 16 124/89 (101) 97 Room Air 12/03/21 15:30 106 23 124/103 (110) 99 Room Air 12/03/21 15:20 99 Room Air 12/03/21 15:10 99 13 123/85 (98) 96 Room Air 12/03/21 15:01 108 12/03/21 15:00 103 28 121/93 (102) Room Air 12/03/21 14:08 101 17 115/88 93 12/03/21 12:16 131 127/100 12/03/21 12:14 121 115/84 12/03/21 11:20 37.0 140 18 116/94 (101) 99 Height & Weight Height: '" Weight: lbs. oz. kg; 26.35 BMI Method: General Appearance: No Apparent Distress, WD/WN HEENT: PERRL/EOMI, TMs Normal, Normal ENT Inspection, Pharynx Normal, Moist Mucous Membranes Neck: Full Range of Motion, Normal Inspection, Non Tender, Supple, Carotid Bruit Respiratory: Chest Non Tender, Normal Breath Sounds, No Accessory Muscle Use, No Respiratory Distress Cardiovascular: No Edema, No Gallop, No JVD, No Murmur, Normal Peripheral Pulses, Systolic Murmur, Irregularly Irregular, Tachycardia Capillary Refill: Less Than 3 Seconds Extremity: Normal Capillary Refill, Normal Inspection, Normal Range of Motion, Non Tender, No Calf Tenderness, No Pedal Edema Neurologic/Psychiatric: Alert, Oriented x3, No Motor/Sensory Deficits, Normal Mood/Affect Skin: Normal Color, Warm/Dry Lymphatic: No Adenopathy Results Lab Laboratory Tests 12/03/21 11:30 Assessment/Plan Assessment/Plan 1 CINDY NULL MD Dec 03, 2021 17:31
[2021-12-03] MEDS ORDERED: oxyCODONE/APAP 5/325MG (PERCOCET 5) TABLET PO PRN (20:45)
[2021-12-03] MEDS ORDERED: oxyCODONE/APAP 10/325MG (PERCOCET 10) TABLET PO PRN (20:45)
[2021-12-03] MEDS ORDERED: METHYL SALICYLATE/MENTHOL (BENGAY, MUSCLE RUB) 3 OZ TUBE TP PRN (21:00)
[2021-12-03] MEDS ORDERED: traZODone 100 MG (DESYREL) TAB PO SCH (21:00)
[2021-12-03] MEDS ORDERED: MONTELUKAST 10 MG (SINGULAIR) TAB PO SCH (21:00)
[2021-12-03] MEDS ORDERED: FAMOTIDINE 20 MG (PEPCID) TABLET PO SCH (21:00)
[2021-12-03] MEDS ORDERED: NON-FORMULARY MEDICATION 1 EA EA (Escitalopram Oxalate 20 MG) PO SCH (21:00)
[2021-12-03] MEDS: APIXABAN 2.5 MG (ELIQUIS) TABLET PO SCH (21:46)
[2021-12-04 02:08] VITALS: BP 109/75
[2021-12-04] MEDS: dilTIAZem DRIP PRE-MIX 125 ML IV SCH (02:08)
[2021-12-04 05:26] LABS: BASOPHILS # (AUTO) 0.1 10^3/uL (0.0-0.1); BASOPHILS % (AUTO) 1 % (0-10); EOSINOPHILS # (AUTO) 0.3 10^3/uL (0.0-0.3); EOSINOPHILS % (AUTO) 4 % (0-10); HEMATOCRIT 33 % (40-54); HEMOGLOBIN 9.1 g/dL (13.3-17.7); LYMPHOCYTES # (AUTO) 1.7 10^3/uL (1.0-4.0); LYMPHOCYTES % (AUTO) 26 % (12-44); MEAN CORPUSCULAR HEMOGLOBIN 30 pg (25-34); MEAN CORPUSCULAR HGB CONC 28 g/dL (32-36); MEAN CORPUSCULAR VOLUME 108 fL (80-99); MEAN PLATELET VOLUME 10.2 fL (9.0-12.2); MONOCYTES % (AUTO) 15 % (0-12); NEUTROPHILS # (AUTO) 3.5 10^3/uL (1.8-7.8); NEUTROPHILS % (AUTO) 53 % (42-75); PLATELET COUNT 271 10^3/uL (130-400); WHITE BLOOD COUNT 6.5 10^3/uL (4.3-11.0)
[2021-12-04 05:47] LABS: ALBUMIN 3.1 GM/DL (3.2-4.5); BILIRUBIN,TOTAL 0.5 MG/DL (0.1-1.0); CALCIUM 8.4 MG/DL (8.5-10.1); CREATININE SERUM 6.62 MG/DL (0.60-1.30); PHOSPHORUS 4.6 MG/DL (2.3-4.7); POTASSIUM 4.4 MMOL/L (3.6-5.0); TOTAL PROTEIN 6.1 GM/DL (6.4-8.2)
[2021-12-04] MEDS ORDERED: POTASSIUM CL 10MEQ/50ML IVPB 50 ML IV SCH (06:00)
[2021-12-04] MEDS ORDERED: KCL 20 MEQ TAB (K-DUR) PO SCH (06:00)
[2021-12-04] MEDS ORDERED: MAGNESIUM 1 GM/100 ML IVPB 100 ML IV SCH (06:00)
[2021-12-04] MEDS ORDERED: NON-FORMULARY MEDICATION 1 EA EA (Escitalopram Oxalate 10 MG) PO SCH (09:00)
[2021-12-04] MEDS ORDERED: ALLOPURINOL 100 MG (ZYLOPRIM) TAB PO SCH (09:00)
[2021-12-04] MEDS ORDERED: PANTOPRAZOLE 40 MG (PROTONIX) TAB PO SCH (09:00)
[2021-12-04] MEDS ORDERED: ONDANSETRON 4 MG/2 ML (SDV) Z0FRAN IVP PRN (09:15)
[2021-12-04] MEDS: APIXABAN 2.5 MG (ELIQUIS) TABLET PO SCH (11:30)
[2021-12-04] MEDS ORDERED: proPOfol 200 MG/20 ML (DIPRIVAN) VIAL IV ONE ×2 (11:30→12:50)
--- NOTE | 2021-12-04 12:37 | Tele-ICU Progress Note ---
Subjective Date Seen by a Provider: Dec 04, 2021 Time Seen by a Provider: 10:27 Subjective/Events-last exam (Tele-ICU Physician , Progress Note ) Available chart/ vitals / labs / Images reviewed Video assessment done using teleICU camera, rest of exam as per RN Discussed with RN Events overnight : Afebrile hemodynamically stable Respiratory - I/O = Drips: Pressors- no Consultants: Hospital course: (12/03) 56M Admitted for rapid afib after dialysis. Cardizem gtt. If does not convert overnight will plan for cardioversion tomorrow. 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 Discussed with RN to reach out if any questions or concerns A total of 20 minutes of critical care time was devoted to this patient today, required to treat and/or prevent further deterioration of critical care condition ( as above ) . Sepsis Event Evaluation Height, Weight, BMI Height: '" Weight: lbs. oz. kg; 27.47 BMI Method: Exam Exam Patient acknowledged, consented, and participated in this virtual visit which was conducted using real time audio/video Vital Signs Date Time Temp Pulse Resp B/P (MAP) Pulse Ox O2 Delivery O2 Flow Rate FiO2 12/04/21 12:17 93 Room Air 12/04/21 09:00 75 15 109/75 (86) 98 Room Air 12/04/21 08:00 93 Room Air 12/04/21 08:00 105 34 118/78 (91) 90 Room Air 12/04/21 07:05 75 12/04/21 07:00 74 8 98/61 (73) 93 Room Air 12/04/21 06:00 80 10 111/70 (86) 95 Room Air 12/04/21 05:00 73 12 97/72 (79) 94 Room Air 12/04/21 04:17 36.5 12/04/21 04:13 93 Room Air 12/04/21 04:00 77 13 99/63 (75) 93 Room Air 12/04/21 03:00 70 12 104/65 (74) 96 Room Air 12/04/21 02:08 102 109/75 12/04/21 02:00 83 13 109/75 (84) 97 Room Air 12/04/21 01:00 99 21 120/84 (94) 94 Room Air 12/04/21 01:00 99 12/04/21 00:47 36.0 12/04/21 00:00 94 Room Air 12/04/21 00:00 93 12 98/61 (73) 92 Room Air 12/03/21 23:00 89 16 112/82 (89) 93 Room Air 12/03/21 22:00 107 15 107/76 (86) 97 Room Air 12/03/21 21:00 80 10 106/63 (78) 95 Room Air 12/03/21 20:00 97 Room Air 12/03/21 20:00 82 18 106/79 (88) 93 Room Air 12/03/21 19:15 96 12 111/87 (96) 93 Room Air 12/03/21 19:00 111 12/03/21 18:00 96 26 117/85 (96) 96 Room Air 12/03/21 17:54 76 12/03/21 17:00 123 26 137/75 (95) 98 Room Air 12/03/21 17:00 37.1 12/03/21 16:00 97 9 115/89 (98) 97 Room Air 12/03/21 16:00 97 Room Air 12/03/21 15:40 87 16 124/89 (101) 97 Room Air 12/03/21 15:30 106 23 124/103 (110) 99 Room Air 12/03/21 15:20 99 Room Air 12/03/21 15:10 99 13 123/85 (98) 96 Room Air 12/03/21 15:01 108 12/03/21 15:00 103 28 121/93 (102) Room Air 12/03/21 14:08 101 17 115/88 93 I & O 12/04/21 07:00 Intake Total 600 ml Output Total 0 ml Balance 600 ml Height & Weight Height: '" Weight: lbs. oz. kg; 27.47 BMI Method: General Appearance: No Apparent Distress, WD/WN HEENT: PERRL/EOMI, Normal ENT Inspection, Pharynx Normal Neck: Full Range of Motion, Normal Inspection, Supple Respiratory: Lungs Clear, Normal Breath Sounds, No Accessory Muscle Use, No R espiratory Distress Cardiovascular: No Murmur, Normal Peripheral Pulses, Irregularly Irregular, Tachycardia Capillary Refill: Less Than 3 Seconds Gastrointestinal: normal bowel sounds, non tender, soft Extremity: Normal Capillary Refill, Normal Inspection, Normal Range of Motion Neurologic/Psychiatric: Alert, Oriented x3, No Motor/Sensory Deficits, Normal Mood/Affect Skin: Normal Color, Warm/Dry Lymphatic: No Adenopathy Results Lab Laboratory Tests 12/03/21 11:30 12/04/21 05:10 Assessment/Plan Assessment/Plan 1 CINDY NULL MD Dec 04, 2021 12:37
--- NOTE | 2021-12-04 13:07 | Anesthesia-General Post-Op ---
MAC Patient Condition Mental Status/LOC: Same as Preop Cardiovascular: Satisfactory Nausea/Vomiting: Absent Respiratory: Satisfactory Pain: Controlled Complications: Absent Post Op Complications Complications None Follow Up Care/Instructions Patient Instructions None needed. Anesthesiology Discharge Order Discharge Order Patient is doing well, no complaints, stable vital signs, no apparent adverse anesthesia problems. No complications reported per nursing. MICHELLE VICENTE CRNA Dec 04, 2021 13:07
--- NOTE | 2021-12-04 13:37 | Cardioversion ---
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 Electrical cardioversion was carried out with anesthesia support with propofol. 200 joules of synchronized shock was delivered through external patches which promptly restored sinus rhythm. The patient tolerated the procedure well. Conclusions: Successful electrical cardioversion and terminating atrial fibrillation TITA MANZANARES MD Dec 04, 2021 13:37
--- NOTE | 2021-12-04 13:39 | Cardiology Progress Note ---
Subjective Date Seen by Provider: Dec 04, 2021 Time Seen by Provider: 13:37 Subjective/Events-last exam Patient was seen at bedside, laying down comfortably. Denied any chest pain, underwent cardioversion. Review of Systems General: No Chills, No Night Sweats, No Fatigue, No Malaise, No Appetite, No Other HEENT: No Head Aches, No Visual Changes, No Eye Pain, No Ear Pain, No Dysphasia, No Sinus Congestion, No Post Nasal Drip, No Sore Throat, No Other Pulmonary: No Dyspnea, No Cough, No Pleuritic Chest Pain, No Other Cardiovascular: No: Chest Pain, Palpitations, Orthopnea, Paroxysmal Noc. Dyspnea, Edema, Lt Headedness, Other Objective-Cardiology Exam Last Set of Vital Signs Vital Signs 12/04/21 12/04/21 12/04/21 04:17 09:00 12:17 Temp 36.5 Pulse 75 Resp 15 B/P (MAP) 109/75 (86) Pulse Ox 93 O2 Delivery Room Air I&O Intake and Output 12/03/21 23:59 Intake Total 600 ml Output Total 0 ml Balance 600 ml Intake Oral 100 ml IV Total 500 ml Output Urine Total 0 ml Daily Weight Change No General: Alert, Oriented X3, Cooperative HEENT: Atraumatic, PERRLA Neck: Supple, No JVD, No Thyromegaly Lungs: Clear to Auscultation, Normal Air Movement Heart: Regular Rate, Normal S1, Normal S2, Other (Systolic murmur) Abdomen: Normal Bowel Sounds, Soft, No Tenderness, No Hepatosplenomegaly, No Masses Extremities: No Clubbing, No Cyanosis, No Edema, Normal Pulses, No Tenderness/Swelling Skin: No Rashes, No Breakdown, No Significant Lesion Neuro: Normal Gait, Normal Speech, Strength at 5/5 X4 Ext, Normal Tone, Sensation Intact Psych/Mental Status: Mental Status NL, Mood NL Results Lab Laboratory Tests 12/04/21 05:10 A/P-Cardiology Admission Diagnosis Paroxysmal atrial fibrillation Palpitation Tachycardia Hypotension Assessment/Plan Paroxysmal atrial fibrillation, admitted to ICU on Cardizem drip Underwent elective electrical cardioversion today. I will stop the Cardizem drip and place him on oral Cardizem Continue on Eliquis COVID-19 infection, patient was tested positive during screening in the emergency room Denied any fever or chills. Coronary artery disease, had an abnormal stress test in September 2019, cardiac catheterization done on October 30, 2021 showing mild coronary ectasia, nonobstructive disease with mildly elevated left ventricular end-diastolic pressure 2D echo was done on June 24, 2021 with normal left ventricular size, ejection fraction 60 to 65%, grade 1 diastolic dysfunction, left atrial dilatation, PA pr essure 35 mmHg History of recurrent palpitation. Current denies any palpitation Borderline hypotension, improved today, continue to monitor blood pressure Hyperlipidemia, monitor lipids End-stage kidney disease maintained on hemodialysis. Receiving dialysis on Thursday, and Thursday Mild carotid stenosis, last ultrasound was done in May 2021. Continue to monitor History of depression Tobaccoism, patient has stopped smoking September 2021, encouraged to continue with smoking cessation Okay for discharge from cardiology standpoint. TITA BANDA MD Dec 04, 2021 13:39
[2021-12-04] MEDS ORDERED: dilTIAZem120 MG (CARDIZEM CD) CAP PO SCH (13:45)
[2021-12-04] MEDS ORDERED: DILT-27 PO (13:49)
--- NOTE | 2021-12-04 13:52 | Discharge Summary ---
Discharge Summary Hospital Course Problems/Diagnosis: (1) Atrial fibrillation with rapid ventricular response Status: Acute Assessment & Plan: Initially started on cardizem drip. Cardiology consulted, cardioversion done 12/04, and discharged on oral cardizem. (2) ESRD (end stage renal disease) on dialysis Status: Chronic Assessment & Plan: Had dialysis 12/03. (3) COVID-19 Status: Acute Assessment & Plan: No clear evidence of pneumonia, no hypoxia, 7 or more days since onset of symptoms so outside window for specific treatment for risk redu ction. No hypoxia noted inpatient. (4) Hypertension Status: Chronic Assessment & Plan: Holding home antihypertensives while on cardizem drip. Qualifiers: Qualified Codes: I10 - Essential (primary) hypertension (5) Paroxysmal atrial fibrillation Status: Chronic (6) GERD (gastroesophageal reflux disease) Status: Chronic Assessment & Plan: Home meds (7) Depression Status: Chronic Assessment & Plan: Home meds (8) Anxiety Status: Chronic Assessment & Plan: Home meds Hospital Course Date of Admission: Dec 03, 2021 at 14:15 Admission Diagnosis : Family Physician/Provider: Jorge Houser DO Date of Discharge: 12/04/21 Discharge Diagnosis: See problem list Hospital Course: See problem list Labs and Pending Lab Test: Laboratory Tests 12/04/21 05:10: White Blood Count 6.5, Red Blood Count 3.01L, Hemoglobin 9.1#L, Hematocrit 33L, Mean Corpuscular Volume 108H, Mean Corpuscular Hemoglobin 30, Mean Corpuscular Hemoglobin Concent 28L, Red Cell Distribution Width 17.6H, Platelet Count 271, Mean Platelet Volume 10.2, Immature Granulocyte % (Auto) 1, Neutrophils (%) (Auto) 53, Lymphocytes (%) (Auto) 26, Monocytes (%) (Auto) 15H, Eosinophils (%) (Auto) 4, Basophils (%) (Auto) 1, Neutrophils # (Auto) 3.5, Lymphocytes # (Auto) 1.7, Monocytes # (Auto) 1.0, Eosinophils # (Auto) 0.3, Basophils # (Auto) 0.1, Immature Granulocyte # (Auto) 0.0, Sodium Level 141, Potassium Level 4.4, Chloride Level 102, Carbon Dioxide Level 25, Anion Gap 14, Blood Urea Nitrogen 28H, Creatinine 6.62#H, Estimat Glomerular Filtration Rate 9, BUN/Creatinine Ratio 4, Glucose Level 90, Calcium Level 8.4L, Corrected Calcium 9.1, Phosphorus Level 4.6, Magnesium Level 2.0, Total Bilirubin 0.5, Aspartate Amino Transf (AST/SGOT) 13, Alanine Aminotransferase (ALT/SGPT) 9, Alkaline Phosphatase 56, Total Protein 6.1L, Albumin 3.1L Microbiology 12/03/21 MRSA Screen - Final, Complete MRSA not isolated Home Meds Active Diltiazem 24Hr ER (Diltiazem HCl) 120 Mg Cap.er.24h 120 Mg PO DAILY Reported Famotidine 20 Mg Tablet 20 Mg PO HS Vitamin B-12 (Cyanocobalamin (Vitamin B-12)) 1,000 Mcg Tablet 1,000 Mcg PO DAILY Escitalopram Oxalate 10 Mg Tablet 10 Mg PO DAILY Escitalopram Oxalate 20 Mg Tablet 20 Mg PO HS Trazodone HCl 100 Mg Tablet 200 Mg PO HS TAKES 2 (100MG) TABS Singulair (Montelukast Sodium) 10 Mg Tablet 10 Mg PO HS Pantoprazole Sodium 40 Mg Tablet.dr 40 Mg PO DAILY Lisinopril 20 Mg Tablet 10 Mg PO HS TAKES OF A 20MG Eliquis (Apixaban) 2.5 Mg Tablet 2.5 Mg PO BID Vitamin D3 (Cholecalciferol (Vitamin D3)) 10 Mcg (400 Unit) Tab.chew 10 Mcg PO DAILY Auryxia (Ferric Citrate) 210 Mg Iron Tablet 420 Mg PO WM TAKES 2 (210MG) TABS Allopurinol 100 Mg Tablet 100 Mg PO DAILY Assessment/Pt DC Instructions Follow up with Dr. Houser within a week of discharge. Follow up with Dr. Manzanares as directed. Discharge Diet: Cardiac Diet Activity as Tolerated: Yes Discharge Physical Examination Allergies: Coded Allergies: No Known Drug Allergies (Unverified , 08/27/21) General Appearance: No Apparent Distress, WD/WN Respiratory: Lungs Clear Cardiovascular: Irregularly Irregular Gastrointestinal: Normal Bowel Sounds, Non Tender, Soft Extremity: No Pedal Edema Skin: Normal Color, Warm/Dry Neurologic/Psychiatric: Alert, Normal Mood/Affect (irritable at time of exam, frustrated due to hunger and discomfort with hospital bed) CHER HEDRICK MD Dec 04, 2021 13:52
[2021-12-04] MEDS ORDERED: lisINopril 20 MG (PRINIVIL) TABLET PO SCH (21:00)
[2021-12-04] MEDS ORDERED: lisINopril 10 MG (PRINIVIL) TABLET PO SCH (21:00)
== END 2021-12-04 16:00 | disposition home or self-care (01) | DRG 308 ==
LOC: EDUNIT# 11:18 → ER 11:21 → ICU 14:15
PROVIDERS: ADMIT Family Medicine; ATTEND Family Medicine
PROC: 5A2204Z Restoration of Cardiac Rhythm, Single (ICD-10-PCS; principal; 2021-12-04)
DX: I48.0 Paroxysmal atrial fibrillation (principal); N18.6 End stage renal disease; U07.1 COVID-19; I12.0 Hypertensive chronic kidney disease with stage 5 chronic kidney disease or end stage renal disease; K21.9 Gastro-esophageal reflux disease without esophagitis; F32.A Depression, unspecified; F41.9 Anxiety disorder, unspecified; I25.10 Atherosclerotic heart disease of native coronary artery without angina pectoris; D64.9 Anemia, unspecified; E78.5 Hyperlipidemia, unspecified; I65.29 Occlusion and stenosis of unspecified carotid artery; I95.9 Hypotension, unspecified; Z99.2 Dependence on renal dialysis; Z79.01 Long term (current) use of anticoagulants; Z79.899 Other long term (current) drug therapy; Z87.891 Personal history of nicotine dependence
CPT/HCPCS: 36415; 71045; 80053; 82550; 82553; 83735; 83874; 83880; 84100; 84484; 85025; 85610; 85730; 87081; 87636; 93005; 93041

== ENCOUNTER 2022-06-11 09:03 | Day surgery (SDC) | payer MEDICARE, MEDICAID ==
[2022-06-11] VITALS (10 sets, daily range): BP systolic 92–124; BP diastolic 68–106
[~2022-06-11] VITALS: Ht 182.9 cm; Wt 93.2 kg
[~2022-06-11 09:03] MED LIST changes: +CYAN-41 PO; +DILT-27 PO; +ESCI-2 PO; +ESCI20TA39 PO; +FAMO20TA5 PO; +MONT-47 PO; -MONT10TA21 PO; +TRAZ-227 PO
[2022-06-11] MEDS ORDERED: NS IV 1000 ML 1,000 ML IV SCH (09:15)
[2022-06-11] MEDS ORDERED: LIDOCAINE 2% VISCOUS 15 ML UDC ONE (13:07)
[2022-06-11] MEDS ORDERED: NS IV 1000 ML 1,000 ML ONE (13:07)
[2022-06-11] MEDS ORDERED: proPOfol 200 MG/20 ML (DIPRIVAN) VIAL IV ONE (13:13)
--- NOTE | 2022-06-11 13:19 | Cardiac Procedure Note-CS/ASA ---
Pre-Procedure Note Pre-Op Procedure Note Date of Available H&P: Jun 02, 2022 Date H&P Reviewed: Jun 11, 2022 Time H&P Reviewed: 13:19 History & Physical: H&P Reviewed, Patient Examed, No changes noted Pre-Operative Diagnosis: a fib Moderate Sedation PreProcedure Time 13:19 ASA Score 3 Airway Lungs Heart ASA score ASA 1: a normal healthy patient ASA 2: a patient with a mild systemic disease (mid diabetes, controlled hypertension, obesity ASA 3: a patient with a severe systemic disease that limits activity (angina, COPD, prior Myocardial infarction) ASA 4: a patient with an incapacitating disease that is a constant threat to life (CHF, renal failure) ASA 5: a moribund patient not expected to survive 24 hrs. (ruptured aneurysm) ASA 6: a declared brain- patient whose organs are being harvested. For emergent operations, add the letter E after the classification Mallampati Classification Grade 3 Sedation Plan Analgesia, Amnesia, Plan communicated to team members, Discussed options with patient/fam, Discussed risks with patient/fam The patient is an appropriate candidate to undergo the planned procedure, sedation, and anesthesia. The patient immediately re-assessed prior to indication. TITA BANDA MD Jun 11, 2022 13:19
--- NOTE | 2022-06-11 13:31 | Diagnostic Imaging Report ---
CHEST 1 VIEW, AP/PA ONLY Indication: Atrial fibrillation Comparison: 12/03/2021 Findings: Enlargement of cardiac silhouette has developed. There is central hazy pulmonary opacities. No pleural effusion or pneumothorax. Impression: 1. Cardiomegaly with potential mild pulmonary edema. Dictated by: Dictated on workstation # [id number]
[2022-06-11] MEDS ORDERED: meTOprolol 5 MG/5 ML (LOPRESSOR) VIAL ONE (13:40)
--- NOTE | 2022-06-11 13:40 | Anesthesia-General Post-Op ---
MAC Patient Condition Mental Status/LOC: Same as Preop Cardiovascular: Satisfactory Nausea/Vomiting: Absent Respiratory: Satisfactory Pain: Controlled Complications: Absent Post Op Complications Complications None Follow Up Care/Instructions Patient Instructions None needed. Anesthesiology Discharge Order Discharge Order Patient is doing well, no complaints, stable vital signs, no apparent adverse anesthesia problems. No complications reported per nursing. BRANDO BAKER CRNA Jun 11, 2022 13:40
[2022-06-11] MEDS ORDERED: meTOprolol 5 MG/5 ML (LOPRESSOR) VIAL IV ONE (13:45)
[2022-06-11] MEDS ORDERED: LIDOCAINE 2% VISCOUS 15 ML UDC PO ONE (13:45)
[2022-06-11] MEDS ORDERED: ONDANSETRON 4 MG/2 ML (SDV) Z0FRAN ONE (14:02)
[2022-06-11] MEDS ORDERED: ONDANSETRON 4 MG/2 ML (SDV) Z0FRAN IVP ONE (14:15)
[2022-06-11] MEDS ORDERED: APIX5TAB PO (14:18)
[2022-06-11 14:19] LABS: HEMATOCRIT 31 % (40-54); HEMOGLOBIN 9.9 g/dL (13.3-17.7); MEAN CORPUSCULAR HEMOGLOBIN 34 pg (25-34); MEAN CORPUSCULAR HGB CONC 32 g/dL (32-36); MEAN CORPUSCULAR VOLUME 106 fL (80-99); MEAN PLATELET VOLUME 10.8 fL (9.0-12.2); PLATELET COUNT 120 10^3/uL (130-400); WHITE BLOOD COUNT 5.8 10^3/uL (4.3-11.0)
--- NOTE | 2022-06-11 14:19 | Discharge Inst-Post CATH ---
Discharge Inst-CATH/EP Problems Reviewed?: Yes Post Cardiac Cath/EP D/C Inst Follow Up/Plan Appointment with Dr. Manzanares's office in 2 to 4 weeks <b>CARDIAC CATH/EP PROCEDURE DISCHARGE INSTRUCTIONS</b> ACTIVITY * Go Home directly and rest. * Limit activity of the leg (or wrist if it was used) for 7 days including aer obics, swimming, jogging, bicycling, etc. * Restrict stair-climbing for 7 days if possible, if not, climb up with your non-cath leg, then bring together on the same step. * Avoid lifting, pushing, pulling or excessive movement of the affected extremi ty for 7 days. * Customary sexual activity may be resumed after 2 days-use caution not to use a position that strains or causes pain to the affected extremity. * No driving for 24 hours. * NO SMOKING. * Avoid straining for bowel movements for 7 days. * Gentle walking on level ground is allowed. * Returning to work will depend on the type of procedure and the results. Your doctor will discuss this with you. CALL YOUR DOCTOR FOR ANY OF THE FOLLOWING: *If bleeding from the puncture site occurs- Apply gentle pressure to site with clean cloth and call your doctor or EMS. * If a knot or lump forms under the skin, increases in size, or causes pain. * If bruising appears to be worsening or moving further down your leg instead of disappearing. * Temperature above 101 F. CARE OF YOUR GROIN INCISION; * Bruising or purple discoloration of the skin near the puncture site is common. * You may shower only, no bathtub bathing for 5 days. Be careful to avoid slipping as your leg may feel stiff. * If a closure device was used on your femoral artery, please see the attached guide regarding care of the device and your leg. * Leave dressing on FOR 24 hours. CARE OF YOUR WRIST INCISION; * Bruising or purple discoloration of the skin near the puncture site is common. * You may shower. * DO NOT submerge wrist. * Leave dressing on FOR 24 hours. TITA MANZANARES MD Jun 11, 2022 14:19
[2022-06-11 14:38] LABS: INR 1.3 (0.8-1.4); PROTHROMBIN TIME PATIENT 16.2 SEC (12.2-14.7)
[2022-06-11 14:49] LABS: ALBUMIN 3.4 GM/DL (3.2-4.5); BILIRUBIN,TOTAL 0.4 MG/DL (0.1-1.0); CALCIUM 8.6 MG/DL (8.5-10.1); CREATININE SERUM 6.43 MG/DL (0.60-1.30); POTASSIUM 4.8 MMOL/L (3.6-5.0); TOTAL PROTEIN 6.2 GM/DL (6.4-8.2)
[2022-06-11] MEDS ORDERED: DILT120C88 PO (15:15)
[2022-06-11] MEDS ORDERED: LISI20TA26 PO (15:16)
[2022-06-11] MEDS ORDERED: TRAZ300T3 PO (15:17)
[2022-06-11] MEDS ORDERED: RT-ALBUINH INH (15:18)
[2022-06-11] MEDS ORDERED: BUPR300T98 PO (15:19)
[2022-06-11] MEDS ORDERED: CLOP75TA28 PO (15:19)
[2022-06-11] MEDS ORDERED: DULO30CA49 PO (15:20)
[2022-06-11] MEDS ORDERED: SODI10PO PO (15:20)
[2022-06-11] MEDS ORDERED: PROM25TA14 PO (15:21)
[2022-06-11] MEDS ORDERED: VITA100033 PO (15:22)
[2022-06-11] MEDS ORDERED: beet root PO (15:22)
[2022-06-11] MEDS ORDERED: CLIN150C20 PO (15:24)
== END 2022-06-11 15:40 | disposition home or self-care (01) ==
LOC: CATH 09:03
PROVIDERS: ATTEND Internal Medicine Cardiovascular Disease
DX: I48.0 Paroxysmal atrial fibrillation (principal); I25.10 Atherosclerotic heart disease of native coronary artery without angina pectoris; I12.0 Hypertensive chronic kidney disease with stage 5 chronic kidney disease or end stage renal disease; N18.6 End stage renal disease; E78.5 Hyperlipidemia, unspecified; I65.23 Occlusion and stenosis of bilateral carotid arteries; F32.A Depression, unspecified; Z87.891 Personal history of nicotine dependence; Z99.2 Dependence on renal dialysis; Z79.899 Other long term (current) drug therapy; Z79.01 Long term (current) use of anticoagulants
CPT/HCPCS: 36415; 71045; 80053; 80061; 85027; 85610; 85730; 87081; 93005; 93312

== ENCOUNTER 2022-07-07 21:01 | Emergency (ER) | payer MEDICARE, MEDICAID ==
[~2022-07-07] VITALS: Ht 182 cm; Wt 80.0 kg
[~2022-07-07 21:01] MED LIST changes: +APIX5TAB PO; +BUPR300T98 PO; +CLIN150C20 PO; +CLOP75TA28 PO; +DILT120C88 PO; +DULO30CA49 PO; +PROM25TA14 PO; +TRAZ300T3 PO; +VITA100033 PO; +beet root PO
[2022-07-07 21:20] LABS: BASOPHILS % (AUTO) 1 % (0-10); EOSINOPHILS # (AUTO) 0.1 10^3/uL (0.0-0.3); EOSINOPHILS % (AUTO) 1 % (0-10); HEMATOCRIT 34 % (40-54); LYMPHOCYTES # (AUTO) 1.1 10^3/uL (1.0-4.0); LYMPHOCYTES % (AUTO) 16 % (12-44); MEAN CORPUSCULAR HEMOGLOBIN 34 pg (25-34); MEAN CORPUSCULAR HGB CONC 33 g/dL (32-36); MEAN CORPUSCULAR VOLUME 105 fL (80-99); MEAN PLATELET VOLUME 10.5 fL (9.0-12.2); MONOCYTES # (AUTO) 0.9 10^3/uL (0.0-1.0); MONOCYTES % (AUTO) 13 % (0-12); NEUTROPHILS % (AUTO) 70 % (42-75); PLATELET COUNT 143 10^3/uL (130-400); WHITE BLOOD COUNT 7.2 10^3/uL (4.3-11.0)
[2022-07-07 21:24] LABS: SMEAR SCAN COMMENT YES
[2022-07-07 21:32] LABS: INR 1.5 (0.8-1.4); PROTHROMBIN TIME PATIENT 18.6 SEC (12.2-14.7)
--- NOTE | 2022-07-07 21:33 | Diagnostic Imaging Report ---
EXAMINATION: Chest 1 view HISTORY: Chest pain. COMPARISON: 06/11/2022. FINDINGS: The lung volumes are normal. No focal consolidation is seen. No large pleural effusion or pneumothorax is seen. The cardiomediastinal silhouette is prominent with central pulmonary vascular congestion. No acute osseous abnormality is seen. IMPRESSION: 1. Cardiomegaly with central pulmonary vascular congestion. Dictated by: Dictated on workstation # [id number]
[2022-07-07 21:42] LABS: BILIRUBIN,TOTAL 0.5 MG/DL (0.1-1.0); CALCIUM 9.6 MG/DL (8.5-10.1); MAGNESIUM 2.5 MG/DL (1.6-2.4); POTASSIUM 4.6 MMOL/L (3.6-5.0); TOTAL PROTEIN 6.7 GM/DL (6.4-8.2)
--- NOTE | 2022-07-07 23:07 | ED Chest Pain ---
General Chief Complaint: Chest Pain Stated Complaint: RAPID HEART RATE/CHEST PAIN SOA Nursing Triage Note: PATIENT REPORTS TO ED WITH C/O SOA FOR A COUPLE OF DAYS AND CHEST TIGHTNESS THAT STARTED BEFORE ARRIVAL. SUSANNA GETS DIALYSIS, LAST DIALYSIS WAS THURSDAY. PATIENT DENIES CHEST TIGHTNESS RADIATION. PATIENT IS ALERT AND ORIENTED X'S 4. PATIENT WAS BROUGHT TO ROOM 08 VIA WC. Source: patient Exam Limitations: no limitations History of Present Illness Date Seen by Provider: July 07, 2022 Time Seen by Provider: 21:05 Initial Comments This 56-year-old man presents to the emergency room appearing rather anxious and complaining of chest tightness, shortness of breath, and feeling of extreme somnolence. He has end-stage renal failure and is on dialysis Tuesdays, , and Saturdays. He last had dialysis on Thursday and is scheduled to have dialysis again tomorrow. He has history of atrial fibrillation and is on Eliquis. He also has a Watchman device. He denies any drug or alcohol use although he does smell of alcohol. Per chart review he had cardiac cathet erization last October which revealed no obstructive disease. Allergies and Home Medications Allergies Coded Allergies: No Known Drug Allergies (Unverified , 08/27/21) Patient Home Medication List Home Medication List Reviewed: Yes Albuterol Sulfate (Ventolin Hfa) 1 Puff Puff, 1 PUFF INH Q4H PRN for AIR HUNGER, (Reported) Entered as Reported by: LUIS FELIPE GARRETT on 06/11/22 1518 Allopurinol (Allopurinol) 100 Mg Tablet, 100 MG PO DAILY, (Reported) Entered as Reported by: LUIS FELIPE GARRETT on 10/30/21 0854 Apixaban (Eliquis) 5 Mg Tablet, 5 MG PO BID Prescribed by: TITA BANDA on 06/11/22 1418 Bupropion HCl (Bupropion Xl) 300 Mg Tab.er.24h, 300 MG PO DAILY, (Reported) Entered as Reported by: LUIS FELIPE AGRRETT on 06/11/22 1519 Cholecalciferol (Vitamin D3) (Vitamin D3) 10 Mcg (400 Unit) Tab.chew, 10 MCG PO DAILY, (Reported) Entered as Reported by: LUIS FELIPE GARRETT on 10/30/21 0854 Clindamycin HCl (Clindamycin HCl) 150 Mg Capsule, 150 MG PO Q8H, (Reported) Entered as Reported by: LUIS FELIPE GARRETT on 06/11/22 1524 Clopidogrel Bisulfate (Clopidogrel) 75 Mg Tablet, 75 MG PO DAILY, (Reported) Entered as Reported by: LUIS FELIPE GARRETT on 06/11/22 1519 Cyanocobalamin (Vitamin B-12) (Vitamin B-12) 1,000 Mcg Tablet, 1,000 MCG PO DAILY, (Reported) Entered as Reported by: MARY LOU CIFUENTES on 12/03/21 1617 Diltiazem HCl (Diltiazem 24Hr Cd) 120 Mg Cap.er.24h, 120 MG PO BID, (Reported) Entered as Reported by: LUIS FELIPE GARRETT on 06/11/22 1515 Duloxetine HCl (Duloxetine HCl) 30 Mg Capsule.dr, 30 MG PO DAILY, (Reported) Entered as Reported by: LUIS FELIPE GARRETT on 06/11/22 1520 Famotidine (Famotidine) 20 Mg Tablet, 20 MG PO HS, (Reported) Entered as Reported by: MARY LOU CIFUENTES on 12/03/21 1617 Ferric Citrate (Auryxia) 210 Mg Iron Tablet, 420 MG PO WM, (Reported) Entered as Reported by: LUIS FELIPE GARRETT on 10/30/21 0854 Lisinopril (Lisinopril) 20 Mg Tablet, 20 MG PO HS, (Reported) Entered as Reported by: LUIS FELIPE GARRETT on 06/11/22 1516 Montelukast Sodium (Singulair) 10 Mg Tablet, 10 MG PO HS, (Reported) Entered as Reported by: LUIS FELIPE GARRETT on 10/30/21 0854 Pantoprazole Sodium (Pantoprazole Sodium) 40 Mg Tablet.dr, 40 MG PO DAILY, (Reported) Entered as Reported by: LUIS FELIPE GARRETT on 10/30/21 0854 Promethazine HCl (Promethazine Tablet) 25 Mg Tablet, 25 MG PO Q6H PRN for NAUSEA/VOMITING, (Reported) Entered as Reported by: LUIS FELIPE GARRETT on 06/11/22 152 Sodium Zirconium Cyclosilicate (Lokelma) 10 Gram Powd.pack, 10 GM PO, (Reported) Entered as Reported by: LUIS FELIPE GARRETT on 06/11/22 152 Trazodone HCl (Trazodone HCl) 300 Mg Tablet, 300 MG PO HS, (Reported) Entered as Reported by: LUIS FELIPE GARRETT on 06/11/22 1517 Vitamin E Mixed (Vitamin E) 1,000 Unit Capsule, 1,000 UNIT PO HS, (Reported) Entered as Reported by: LUIS FELIPE GARRETT on 06/11/22 1522 [beet root] , 1 TAB PO DAILY, (Reported) Entered as Reported by: LUIS FELIPE GARRETT on 06/11/22 1522 Review of Systems Review of Systems Constitutional: see HPI EENTM: No Symptoms Reported Respiratory: See HPI Cardiovascular: See HPI Gastrointestinal: No Symptoms Reported Genitourinary: See HPI Musculoskeletal: no symptoms reported Skin: no symptoms reported Psychiatric/Neurological: No Symptoms Reported Endocrine: No Symptoms Reported Hematologic/Lymphatic: No Symptoms Reported Past Nivbcuu-Ozgmnz-Bhkhxa Hx Patient Social History Tobacco Use?: Yes Tobacco type used: Cigarettes Smoking Status: Current Everyday Smoker Use of E-Cig and/or Vaping dev: No Substance use?: No Alcohol Use?: No Pt feels they are or have been: No Immunizations Up To Date First/Initial COVID19 Vaccinat: UNNOWN DATE Second COVID19 Vaccination Miguel: UNNOWN DATE Third COVID19 Vaccination Date: UNNOWN DATE Past Medical History Surgery/Hospitalization HX: PMH;LIVER FAILURE, GOUT,A-FIB SURG.-HEART CATH - 10/2021 Surgeries: Yes Gallbladder, Orthopedic, Vascular Surgery (Dialysis fistula left arm) Currently Using CPAP: No Cardiac: Yes Atrial Fibrillation, Hypertension Neurological: Yes Headaches /Migraines Genitourinary: Yes Renal Failure, Dialysis Gastrointestinal: Yes Gastroesophageal Reflux, Freire's Esophagus, Chronic Constipation Musculoskeletal: No Endocrine: No HEENT: No Cancer: No Skin Psychosocial: No Integumentary: No Physical Exam Vital Signs Vital Signs - First Documented 07/07/22 21:05 Temp 36.0 Pulse 96 Resp 22 B/P (MAP) 95/73 (80) Pulse Ox 94 O2 Delivery Room Air Capillary Refill : Less Than 3 Seconds Height, Weight, BMI Height: '" Weight: lbs. oz. 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 Norm as Tested, Other (Anxious) Skin: Normal Color, Warm/Dry Progress/Results/Core Measures Results/Orders Lab Results Laboratory Tests Test 07/07/22 21:08 07/07/22 21:28 07/07/22 21:46 07/07/22 23:28 Range/Units White Blood Count 7.2 4.3-11.0 10^3/uL Red Blood Count 3.20 L 4.30-5.52 10^6/uL Hemoglobin 11.0 L 13.3-17.7 g/dL Hematocrit 34 L 40-54 % Mean Corpuscular Volume 105 H 80-99 fL Mean Corpuscular Hemoglobin 34 25-34 pg Mean Corpuscular Hemoglobin Concent 33 32-36 g/dL Red Cell Distribution Width 16.2 H 10.0-14.5 % Platelet Count 143 130-400 10^3/uL Mean Platelet Volume 10.5 9.0-12.2 fL Immature Granulocyte % (Auto) 0 % Neutrophils (%) (Auto) 70 42-75 % Lymphocytes (%) (Auto) 16 12-44 % Monocytes (%) (Auto) 13 H 0-12 % Eosinophils (%) (Auto) 1 0-10 % Basophils (%) (Auto) 1 0-10 % Neutrophils # (Auto) 5.0 1.8-7.8 10^3/uL Lymphocytes # (Auto) 1.1 1.0-4.0 10^3/uL Monocytes # (Auto) 0.9 0.0-1.0 10^3/uL Eosinophils # (Auto) 0.1 0.0-0.3 10^3/uL Basophils # (Auto) 0.0 0.0-0.1 10^3/uL Immature Granulocyte # (Auto) 0.0 0.0-0.1 10^3/uL Prothrombin Time 18.6 H 12.2-14.7 SEC INR Comment 1.5 H 0.8-1.4 Activated Partial Thromboplast Time 31 24-35 SEC Sodium Level 141 135-145 MMOL/L Potassium Level 4.6 3.6-5.0 MMOL/L Chloride Level 101 98-107 MMOL/L Carbon Dioxide Level 24 21-32 MMOL/L Anion Gap 16 H 5-14 MMOL/L Blood Urea Nitrogen 52 H 7-18 MG/DL Creatinine 8.00 H 0.60-1.30 MG/DL Estimat Glomerular Filtration Rate 7 BUN/Creatinine Ratio 7 Glucose Level 94 70-105 MG/DL Calcium Level 9.6 8.5-10.1 MG/DL Corrected Calcium 9.6 8.5-10.1 MG/DL Magnesium Level 2.5 H 1.6-2.4 MG/DL Total Bilirubin 0.5 0.1-1.0 MG/DL Aspartate Amino Transf (AST/SGOT) 19 5-34 U/L Alanine Aminotransferase (ALT/SGPT) 17 0-55 U/L Alkaline Phosphatase 89 40-136 U/L Myoglobin 206.0 H 10.0-92.0 NG/ML Troponin I 0.029 H < 0.028 <0.028 NG/ML C-Reactive Protein High Sensitivity 0.45 0.00-0.50 MG/DL Total Protein 6.7 6.4-8.2 GM/DL Albumin 4.0 3.2-4.5 GM/DL Serum Alcohol 109 H <10 MG/DL Smear Scan YES Influenza Type A (RT-PCR) Not Detected Not Detecte Influenza Type B (RT-PCR) Not Detected Not Detecte SARS-CoV-2 RNA (RT-PCR) Not Detected Not Detecte My Orders Orders - HOLLI CAO MD Ekg Tracing (07/07/22 21:05) Cbc With Automated Diff (07/07/22 21:12) Magnesium (07/07/22 21:12) Chest 1 View, Ap/Pa Only (07/07/22 21:12) Comprehensive Metabolic Panel (07/07/22 21:12) Myoglobin Serum (07/07/22 21:12) Protime With Inr (07/07/22 21:12) Partial Thromboplastin Time (07/07/22 21:12) O2 (07/07/22 21:12) Monitor-Rhythm Ecg Trace Only (07/07/22 21:12) Ed Iv/Invasive Line Start (07/07/22 21:12) Troponin I Martinez (07/07/22 21:12) Alcohol (07/07/22 21:12) Hs C Reactive Protein (07/07/22 21:12) Covid 19 Inhouse Test (07/07/22 21:12) Influenza A And B By Pcr (07/07/22 21:12) Arterial Blood Gas (07/07/22 21:17) Troponin I Hunt (07/07/22 23:15) Hydrocodone/Apap 5/325 Tablet (Lortab 5 (07/07/22 23:30) Medications Given in ED Current Medications Medications Dose Ordered Sig/Yoan Route Start Time Stop Time Status Last Admin Dose Admin Acetaminophen/ Hydrocodone Bitart 1 ea ONCE ONCE PO 07/07/22 23:30 07/07/22 23:31 DC 07/07/22 23:44 1 EA Vital Signs/I&O 07/07/22 07/08/22 21:05 00:25 Temp 36.0 36.0 Pulse 96 98 Resp 22 16 B/P (MAP) 95/73 (80) 124/77 Pulse Ox 94 95 O2 Delivery Room Air Room Air Blood Pressure Mean: 80 Progress Progress Note : Progress Note Patient was immediately interviewed and examined. EKG was obtained and interpreted by me. Atrial fibrillation was noted without any acute ischemic changes. Rate was controlled. Although patient reported no alcohol consumption, he smelled of alcohol and his behavior and comments to nursing staff were suspicious for intoxication. Labs were obtained including an alcohol level which was 109. CBC was significant only for mild anemia. CMP revealed elevated BUN and creatinine consistent with a dialysis patient. Electrolytes were unremarkable. Troponin was borderline at 0.29. Repeat troponin was normal. Patient complained of exacerbation of his chronic back pain which was treated with hydrocodone. Influenza and COVID swabs were negative. Chest x-ray demonstrated cardiomegaly with some possible vascular congestion. Chest x-ray was viewed by me and report was reviewed. I appreciated no focal consolidations or infiltrates to suggest pneumonia. Patient's symptoms ultimately improved without much intervention. Repeat troponin was negative. Chest tightness resolved. Patient was discharged to outpatient follow-up and to continue dialysis. Initial ECG Impression Date: July 07, 2022 Initial ECG Impression Time: 21:07 Initial ECG Rate: 106 Initial ECG Rhythm: A Fib/Flutter Comment Atrial fibrillation. Subtle ST changes do not meet criteria for STEMI or suspicion for acute ischemia. No abnormal intervals or axis deviation. Rate is controlled. Diagnostic Imaging Diagonstic Imaging: Xray Plain Films/CT/US/NM/MRI: chest Comments NAME: MARCIANO PETTIT II [facility] REC#: [id number] PT STATUS: REG ER : 1965 PHYSICIAN: HOLLI CAO MD ADMIT DATE: 07/07/22/ER Signed Date of Exam:07/07/22 CHEST 1 VIEW, AP/PA ONLY EXAMINATION: Chest 1 view HISTORY: Chest pain. COMPARISON: 06/11/2022. FINDINGS: The lung volumes are normal. No focal consolidation is seen. No large pleural effusion or pneumothorax is seen. The cardiomediastinal silhouette is prominent with central pulmonary vascular congestion. No acute osseous abnormality is seen. IMPRESSION: 1. Cardiomegaly with central pulmonary vascular congestion. Dictated by: Dictated on workstation # [id number] Dict: 07/07/222127 Trans: 07/07/222137 [facility] [id number] Interpreted by: JOHNNY CRAWFORD DO Electronically signed by: JOHNNY CRAWFORD DO 07/07/222137 Departure Impression Primary Impression: Shortness of breath Additional Impressions: Chest tightness Elevated blood alcohol level Qualified Codes: Y90.5 - Blood alcohol level of 100-119 mg/100 ml End stage renal failure on dialysis Disposition: 01 HOME, SELF-CARE Condition: Improved Departure-Patient Inst. Decision time for Depature: 00:18 Referrals: MARY LOU TAO DO (PCP/Family) Primary Care Physician Patient Instructions: Chest Pain Add. Discharge Instructions: Continue with your usual medications and your usual dialysis schedule. Follow-up with your primary care provider within the next week. Return to the emergency room if you have worsening symptoms or develop new symptoms such as fever. All discharge instructions reviewed with patient and/or family. Voiced understanding. Copy Copies To 1: MARY LOU TAO JOSHUA T MD July 07, 2022 23:07
[2022-07-07] MEDS ORDERED: HYDROcodone/APAP 5 MG/325 MG (LORTAB) TAB PO ONE (23:30)
[2022-07-08 00:25] VITALS: BP 124/77
== END 2022-07-08 00:25 | disposition home or self-care (01) ==
LOC: EDUNIT# 21:01 → ER 21:04
DX: I13.11 Hypertensive heart and chronic kidney disease without heart failure, with stage 5 chronic kidney disease, or end stage renal disease (principal); N18.6 End stage renal disease; D63.1 Anemia in chronic kidney disease; I48.91 Unspecified atrial fibrillation; F17.210 Nicotine dependence, cigarettes, uncomplicated; Y90.5 Blood alcohol level of 100-119 mg/100 ml; Z99.2 Dependence on renal dialysis; Z79.01 Long term (current) use of anticoagulants; Z20.822 Contact with and (suspected) exposure to COVID-19
CPT/HCPCS: 36415; 71045; 80053; 80320; 83735; 83874; 84484; 85025; 85610; 85730; 86141; 87636; 93005; 93041

== ENCOUNTER 2022-07-11 07:07 | Day surgery (SDC) | payer MEDICARE, MEDICAID ==
[~2022-07-11] VITALS: Ht 182.9 cm; Wt 80.2 kg
[2022-07-11] MEDS ORDERED: NS IV 1000 ML 1,000 ML ONE (07:21)
[2022-07-11] MEDS ORDERED: LIDOCAINE 2% VISCOUS 15 ML UDC ONE (07:21)
[2022-07-11] MEDS ORDERED: NS IV 1000 ML 1,000 ML IV SCH (07:30)
[2022-07-11 07:45] LABS: HEMATOCRIT 37 % (40-54); MEAN CORPUSCULAR HEMOGLOBIN 35 pg (25-34); MEAN CORPUSCULAR HGB CONC 33 g/dL (32-36); MEAN CORPUSCULAR VOLUME 108 fL (80-99); MEAN PLATELET VOLUME 10.3 fL (9.0-12.2); PLATELET COUNT 144 10^3/uL (130-400); WHITE BLOOD COUNT 6.5 10^3/uL (4.3-11.0)
[2022-07-11] MEDS ORDERED: LIDOCAINE 2% VISCOUS 15 ML UDC PO ONE (07:45)
[2022-07-11] MEDS ORDERED: DILT120C10 PO (07:48)
[2022-07-11] MEDS ORDERED: BIOT10005 PO (07:48)
--- NOTE | 2022-07-11 07:48 | Cardiac Procedure Note-CS/ASA ---
Pre-Procedure Note Pre-Op Procedure Note Date of Available H&P: July 08, 2022 Date H&P Reviewed: July 11, 2022 Time H&P Reviewed: 07:48 History & Physical: H&P Reviewed, Patient Examed, No changes noted Pre-Operative Diagnosis: a fib Moderate Sedation PreProcedure Time 07:48 ASA Score 3 Airway Lungs Heart ASA score ASA 1: a normal healthy patient ASA 2: a patient with a mild systemic disease (mid diabetes, controlled hypertension, obesity ASA 3: a patient with a severe systemic disease that limits activity (angina, COPD, prior Myocardial infarction) ASA 4: a patient with an incapacitating disease that is a constant threat to life (CHF, renal failure) ASA 5: a moribund patient not expected to survive 24 hrs. (ruptured aneurysm) ASA 6: a declared brain- patient whose organs are being harvested. For emergent operations, add the letter E after the classification Mallampati Classification Grade 3 Sedation Plan Analgesia, Amnesia, Plan communicated to team members, Discussed options with patient/fam, Discussed risks with patient/fam The patient is an appropriate candidate to undergo the planned procedure, sedation, and anesthesia. The patient immediately re-assessed prior to indication. TITA BANDA MD July 11, 2022 07:48
[2022-07-11 07:57] LABS: POTASSIUM 4.8 MMOL/L (3.6-5.0)
[2022-07-11 07:58] LABS: CALCIUM 9.4 MG/DL (8.5-10.1)
[2022-07-11 08:00] LABS: TOTAL PROTEIN 6.8 GM/DL (6.4-8.2)
[2022-07-11 08:01] LABS: BILIRUBIN,TOTAL 0.5 MG/DL (0.1-1.0)
[2022-07-11] MEDS ORDERED: proPOfol 200 MG/20 ML (DIPRIVAN) VIAL IV ONE (08:02)
[2022-07-11 08:03] LABS: CREATININE SERUM 5.25 MG/DL (0.60-1.30)
[2022-07-11 08:08] VITALS: BP 132/105
[2022-07-11 08:16] VITALS: BP 107/69
[2022-07-11 08:22] VITALS: BP 94/71
--- NOTE | 2022-07-11 08:31 | Discharge Inst-Post CATH ---
Discharge Inst-CATH/EP Problems Reviewed?: Yes Post Cardiac Cath/EP D/C Inst Follow Up/Plan Appointment with Dr. Manzanares's office in 2 weeks <b>CARDIAC CATH/EP PROCEDURE DISCHARGE INSTRUCTIONS</b> ACTIVITY * Go Home directly and rest. * Limit activity of the leg (or wrist if it was used) for 7 days including aerobics, swimming, jogging, bicycling, etc. * Restrict stair-climbing for 7 days if possible, if not, climb up with your non-cath leg, then bring together on the same step. * Avoid lifting, pushing, pulling or excessive movement of the affected extremity for 7 days. * Customary sexual activity may be resumed after 2 days-use caution not to use a position that strains or causes pain to the affected extremity. * No driving for 24 hours. * NO SMOKING. * Avoid straining for bowel movements for 7 days. * Gentle walking on level ground is allowed. * Returning to work will depend on the type of procedure and the results. Your doctor will discuss this with you. CALL YOUR DOCTOR FOR ANY OF THE FOLLOWING: *If bleeding from the puncture site occurs- Apply gentle pressure to site with clean cloth and call your doctor or EMS. * If a knot or lump forms under the skin, increases in size, or causes pain. * If bruising appears to be worsening or moving further down your leg instead of disappearing. * Temperature above 101 F. CARE OF YOUR GROIN INCISION; * Bruising or purple discoloration of the skin near the puncture site is common. * You may shower only, no bathtub bathing for 5 days. Be careful to avoid slipping as your leg may feel stiff. * If a closure device was used on your femoral artery, please see the attached guide regarding care of the device and your leg. * Leave dressing on FOR 24 hours. CARE OF YOUR WRIST INCISION; * Bruising or purple discoloration of the skin near the puncture site is common. * You may shower. * DO NOT submerge wrist. * Leave dressing on FOR 24 hours. TITA MANZANARES MD July 11, 2022 08:31
[2022-07-11 08:36] VITALS: BP 113/91
[2022-07-11 08:45] VITALS: BP 124/99
--- NOTE | 2022-07-11 08:45 | Clinic Account Progress/Dx ---
Clinic Account Progress/Dx DIAGNOSIS: Date Seen by Provider: July 11, 2022 Time Seen by Provider: 08:44 Atrial fibrillation Palpitation Congestive heart failure, dilated cardiomyopathy, chronic compensated left ventricular systolic dysfunction, nonischemic cardiomyopathy Hypertension Hyperlipidemia TITA BANDA MD July 11, 2022 08:45
[2022-07-11 09:00] VITALS: BP 122/104
--- NOTE | 2022-07-11 10:05 | Anesthesia-General Post-Op ---
MAC Patient Condition Mental Status/LOC: Same as Preop Cardiovascular: Satisfactory Nausea/Vomiting: Absent Respiratory: Satisfactory Pain: Controlled Complications: Absent Post Op Complications Complications None Follow Up Care/Instructions Patient Instructions None needed. Anesthesiology Discharge Order Discharge Order Patient is doing well, no complaints, stable vital signs, no apparent adverse anesthesia problems. No complications reported per nursing. LORETTA CHACKO CRNA July 11, 2022 10:05
== END 2022-07-11 09:30 | disposition home or self-care (01) ==
LOC: CATH 07:07
PROVIDERS: ATTEND Internal Medicine Cardiovascular Disease
DX: I25.10 Atherosclerotic heart disease of native coronary artery without angina pectoris (principal); I65.23 Occlusion and stenosis of bilateral carotid arteries; I48.0 Paroxysmal atrial fibrillation; I48.91 Unspecified atrial fibrillation; I12.0 Hypertensive chronic kidney disease with stage 5 chronic kidney disease or end stage renal disease; N18.6 End stage renal disease; E78.5 Hyperlipidemia, unspecified; F32.A Depression, unspecified; F17.210 Nicotine dependence, cigarettes, uncomplicated; Z79.01 Long term (current) use of anticoagulants; Z99.2 Dependence on renal dialysis
CPT/HCPCS: 36415; 80053; 85027; 87081; 93005; 93312

== ENCOUNTER 2022-07-23 08:57 | Emergency (ER) | payer MEDICARE, MEDICAID ==
[~2022-07-23] VITALS: Ht 182.8 cm; Wt 88.8 kg
[~2022-07-23 08:57] MED LIST changes: +BIOT10005 PO; +DILT120C10 PO
--- NOTE | 2022-07-23 09:23 | ED EENT ---
History of Present Illness General Chief Complaint: Oral/Throat Problems Stated Complaint: BLEEDING IN THE MOUTH Source: patient Exam Limitations: no limitations History of Present Illness Date Seen by Provider: July 23, 2022 Time Seen by Provider: 09:12 Initial Comments 56-year-old male presents to the emergency department today for bleeding in his mouth. He states he went to bed fine and woke up this morning and had blood in his mouth. He has no active bleeding currently. No pain. He is on blood thinners for atrial fibrillation All other systems reviewed and negative except documented per HPI. Voice recognition software was used to help create this chart Allergies and Home Medications Allergies Coded Allergies: No Known Drug Allergies (Unverified , 08/27/21) Patient Home Medication List Home Medication List Reviewed: Yes Albuterol Sulfate (Ventolin Hfa) 1 Puff Puff, 1 PUFF INH Q4H PRN for AIR HUNGER, (Reported) Entered as Reported by: LUIS FELIPE GARRETT on 06/11/22 1518 Allopurinol (Allopurinol) 100 Mg Tablet, 100 MG PO DAILY, (Reported) Entered as Reported by: LUIS FELIPE GARRETT on 10/30/21 0854 Apixaban (Eliquis) 5 Mg Tablet, 5 MG PO BID Prescribed by: TITA BANDA on 06/11/22 1418 Biotin (Biotin) 10,000 Mcg Capsule, 10,000 MCG PO DAILY, (Reported) Entered as Reported by: KURT CONCEPCION on 07/11/22 0748 Cholecalciferol (Vitamin D3) (Vitamin D3) 10 Mcg (400 Unit) Tab.chew, 10 MCG PO DAILY, (Reported) Entered as Reported by: LUIS FELIPE GARRETT on 10/30/21 0854 Clindamycin HCl (Clindamycin HCl) 150 Mg Capsule, 150 MG PO Q8H, (Reported) Entered as Reported by: LUIS FELIPE GARRETT on 06/11/22 1524 Cyanocobalamin (Vitamin B-12) (Vitamin B-12) 1,000 Mcg Tablet, 1,000 MCG PO DAILY, (Reported) Entered as Reported by: MARY LOU CIFUENTES on 12/03/21 1617 Diltiazem HCl (Diltiazem 24Hr Cd) 120 Mg Cap.er.24h, 240 MG PO DAILY, (Reported) Entered as Reported by: LUIS FELIPE GARRETT on 06/11/22 1515 Diltiazem HCl (Diltiazem 12Hr ER) 120 Mg Cap.er.12h, 120 MG PO EVENING, (Reported) Entered as Reported by: KURT CONCEPCION on 07/11/22 0748 Duloxetine HCl (Duloxetine HCl) 30 Mg Capsule.dr, 60 MG PO DAILY, (Reported) Entered as Reported by: LUIS FELIPE GARRETT on 06/11/22 1520 Famotidine (Famotidine) 20 Mg Tablet, 20 MG PO HS, (Reported) Entered as Reported by: MARY LOU CIFUENTES on 12/03/21 1617 Ferric Citrate (Auryxia) 210 Mg Iron Tablet, 420 MG PO WM, (Reported) Entered as Reported by: LUIS FELIPE GARRETT on 10/30/21 0854 Pantoprazole Sodium (Pantoprazole Sodium) 40 Mg Tablet.dr, 40 MG PO DAILY, (Reported) Entered as Reported by: LUIS FELIPE GARRETT on 10/30/21 0854 Promethazine HCl (Promethazine Tablet) 25 Mg Tablet, 25 MG PO Q6H PRN for NAUSEA/VOMITING, (Reported) Entered as Reported by: LUIS FELIPE GARRETT on 06/11/22 1521 Sodium Zirconium Cyclosilicate (Lokelma) 10 Gram Powd.pack, 10 GM PO, (Reported) Entered as Reported by: LUIS FELIPE GARRETT on 06/11/22 1520 Trazodone HCl (Trazodone HCl) 300 Mg Tablet, 300 MG PO HS, (Reported) Entered as Reported by: LUIS FELIPE GARRETT on 06/11/22 1517 Vitamin E Mixed (Vitamin E) 1,000 Unit Capsule, 1,000 UNIT PO HS, (Reported) Entered as Reported by: LUIS FELIPE GARRETT on 06/11/22 1522 [beet root] , 1 TAB PO DAILY, (Reported) Entered as Reported by: LUIS FELIPE GARRETT on 06/11/22 1522 Review of Systems Review of Systems Constitutional: see HPI Past Ldhsnga-Frcyfi-Diydwq Hx Patient Social History Tobacco Use?: Yes Tobacco type used: Cigarettes Smoking Status: Current Everyday Smoker Substance use?: No Alcohol Use?: No Pt feels they are or have been: No Immunizations Up To Date First/Initial COVID19 Vaccinat: vaccinated Second COVID19 Vaccination Miguel: UNNOWN DATE Third COVID19 Vaccination Date: UNNOWN DATE Past Medical History Surgery/Hospitalization HX: PMH;LIVER FAILURE, GOUT,A-FIB, dialysis, fistula in left upper arm SURG.-HEART CATH - 10/2021 Surgeries: Yes Gallbladder, Orthopedic, Vascular Surgery Currently Using CPAP: No Cardiac: Yes Atrial Fibrillation, Hypertension Neurological: Yes Headaches /Migraines Genitourinary: Yes Renal Failure, Dialysis Gastrointestinal: Yes Gastroesophageal Reflux, Freire's Esophagus, Chronic Constipation Musculoskeletal: No Endocrine: No HEENT: No Cancer: No Skin Psychosocial: No Integumentary: No Physical Exam Height, Weight, BMI Height: '" Weight: lbs. oz. kg; 23.97 BMI Method: General Appearance: WD/WN, no apparent distress Mouth/Throat: other (The gingival surface just beneath the canine teeth in the lower gums is a raised gingival lesion with an overlying scab. No active bleeding. This is obviously the source of recent bleeding.) Cardiovascular: regular rate, rhythm, no murmur Respiratory: chest non-tender, lungs clear, normal breath sounds, no respiratory distress Departure Communication (Admissions) Patient has a lesion on his gums. He is unsure if this is new or not he is a very poor historian. There is concern for possible oral cancer given he is a smoker. If this is new is likely just irritation, raised abrasion and scabbing. If this persists I did advise him to follow-up with his primary doctor to rule out oral cancer. There is no active bleeding at this time. No indication for emergent work-up Impression Primary Impression: Gingival bleeding Disposition: 01 HOME, SELF-CARE Condition: Stable Departure-Patient Inst. Referrals: MARY LOU TAO DO (PCP/Family) Primary Care Physician Patient Instructions: Bleeding Gums Add. Discharge Instructions: As discussed if the lesion on your gums remains you will need to follow-up with your primary doctor to ensure this is not an oral cancer. Try to eat lukewarm foods that are nonabrasive, not sharp until the area heals. All discharge instructions reviewed with patient and/or family. Voiced understanding. LOREN LANDRY DO July 23, 2022 09:23
[2022-07-23 09:27] VITALS: BP 123/97
== END 2022-07-23 09:27 | disposition home or self-care (01) ==
LOC: EDUNIT# 08:57 → ER 08:58
DX: K06.8 Other specified disorders of gingiva and edentulous alveolar ridge (principal); I48.91 Unspecified atrial fibrillation; F17.210 Nicotine dependence, cigarettes, uncomplicated; Z79.01 Long term (current) use of anticoagulants
CPT/HCPCS: 99283

== ENCOUNTER 2022-07-26 11:45 | Emergency (ER) | payer MEDICARE, MEDICAID ==
[~2022-07-26] VITALS: Ht 182 cm; Wt 88.2 kg
--- NOTE | 2022-07-26 12:04 | ED Cardiac General ---
History of Present Illness General Chief Complaint: Respiratory Problems Stated Complaint: COUGH/ BODY ACHES Nursing Triage Note: PT AMB TO [facility] PT CO OF A-FIB, HAS COUGH AND SOA. PT STATES STARTED APPROX 3 DAYS AGO. DENIES FEVER, PT STATES HAS DISCOMFORT IN CHEST RATES 2/10. PT IS A DIALYSIS PT AND HAS SHUNT IN L ARM Source: patient Exam Limitations: no limitations (EMBER DIAS APRN) History of Present Illness Date Seen by Provider: Jul 26, 2022 Time Seen by Provider: 11:48 Initial Comments 56-year-old male presents to the ER with complaints of cough, shortness of air, chest tightness for 3 days. He is also complaining of chest congestion. He had dialysis today, they were able to complete the full treatment. He reports that he was told he was in atrial fibrillation, patient states he does not feel when he is in atrial fibrillation, thinks that he is always in atrial fibrillation. He states that his shortness of air did not improve at all after his dialysis today. He no longer produces urine. 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, (Reported) Entered as Reported by: LUIS FELIPE GARRETT on 06/11/22 1518 Allopurinol (Allopurinol) 100 Mg Tablet, 100 MG PO DAILY, (Reported) Entered as Reported by: LUIS FELIPE GARRETT on 10/30/21 0854 Apixaban (Eliquis) 5 Mg Tablet, 5 MG PO BID Prescribed by: TITA BANDA on 06/11/22 1418 Biotin (Biotin) 10,000 Mcg Capsule, 10,000 MCG PO DAILY, (Reported) Entered as Reported by: KURT CONCEPCION on 07/11/22 0748 Cholecalciferol (Vitamin D3) (Vitamin D3) 10 Mcg (400 Unit) Tab.chew, 10 MCG PO DAILY, (Reported) Entered as Reported by: LUIS FELIPE GARRETT on 10/30/21 0854 Clindamycin HCl (Clindamycin HCl) 150 Mg Capsule, 150 MG PO Q8H, (Reported) Entered as Reported by: LUIS FELIPE GARRETT on 06/11/22 1524 Cyanocobalamin (Vitamin B-12) (Vitamin B-12) 1,000 Mcg Tablet, 1,000 MCG PO DAILY, (Reported) Entered as Reported by: MARY LOU CIFUENTES on 12/03/21 1617 Diltiazem HCl (Diltiazem 24Hr Cd) 120 Mg Cap.er.24h, 240 MG PO DAILY, (Reported) Entered as Reported by: LUIS FELIPE GARRETT on 06/11/22 1515 Diltiazem HCl (Diltiazem 12Hr ER) 120 Mg Cap.er.12h, 120 MG PO EVENING, (Reported) Entered as Reported by: KURT CONCEPCION on 07/11/22 0748 Duloxetine HCl (Duloxetine HCl) 30 Mg Capsule.dr, 60 MG PO DAILY, (Reported) Entered as Reported by: LUIS FELIPE GARRETT on 06/11/22 1520 Famotidine (Famotidine) 20 Mg Tablet, 20 MG PO HS, (Reported) Entered as Reported by: MARY LOU CIFUENTES on 12/03/21 1617 Ferric Citrate (Auryxia) 210 Mg Iron Tablet, 420 MG PO WM, (Reported) Entered as Reported by: LUIS FELIPE GARRETT on 10/30/21 0854 Pantoprazole Sodium (Pantoprazole Sodium) 40 Mg Tablet.dr, 40 MG PO DAILY, (Reported) Entered as Reported by: LUIS FELIPE GARRETT on 10/30/21 0854 Promethazine HCl (Promethazine Tablet) 25 Mg Tablet, 25 MG PO Q6H PRN for NAUSEA/VOMITING, (Reported) Entered as Reported by: LUIS FELIPE GARRETT on 06/11/22 152 Sodium Zirconium Cyclosilicate (Lokelma) 10 Gram Powd.pack, 10 GM PO, (Reported) Entered as Reported by: LUIS FELIPE GARRETT on 06/11/22 152 Trazodone HCl (Trazodone HCl) 300 Mg Tablet, 300 MG PO HS, (Reported) Entered as Reported by: LUIS FELIPE GARRETT on 06/11/22 151 Vitamin E Mixed (Vitamin E) 1,000 Unit Capsule, 1,000 UNIT PO HS, (Reported) Entered as Reported by: LUIS FELIPE GARRETT on 06/11/22 1522 [beet root] , 1 TAB PO DAILY, (Reported) Entered as Reported by: LUIS FELIPE GARRETT on 06/11/22 1522 Review of Systems Review of Systems Constitutional: see HPI (EMBER DIAS APRN) Past Bebxagx-Ihphjk-Fwthlq Hx Patient Social History Tobacco Use?: Yes Tobacco type used: Cigarettes Smoking Status: Current Everyday Smoker Substance use?: No Alcohol Use?: No Pt feels they are or have been: No (EMBER DIAS APRN) Immunizations Up To Date First/Initial COVID19 Vaccinat: vaccinated Second COVID19 Vaccination Miguel: 08/14 Third COVID19 Vaccination Date: 08/14 (EMBER DIAS APRN) Past Medical History Surgery/Hospitalization HX: PMH;LIVER FAILURE, GOUT,A-FIB, dialysis, fistula in left upper arm SURG.-HEART CATH - 10/2021 Surgeries: Yes Gallbladder, Orthopedic, Vascular Surgery Currently Using CPAP: No Cardiac: Yes Atrial Fibrillation, Hypertension Neurological: Yes Headaches /Migraines Genitourinary: Yes Renal Failure, Dialysis Gastrointestinal: Yes Gastroesophageal Reflux, Freire's Esophagus, Chronic Constipation Musculoskeletal: No Endocrine: No HEENT: No Cancer: No Skin Psychosocial: No Integumentary: No (EMBER DIAS APRN) Physical Exam Vital Signs Vital Signs - First Documented 07/26/22 07/26/22 11:45 19:18 Temp 38.0 Pulse 134 Resp 27 B/P (MAP) 120/84 (96) Pulse Ox 95 O2 Delivery Room Air (HOLLI CAO MD) Vital Signs Capillary Refill : Less Than 3 Seconds (EMBER DIAS APRN) Height, Weight, BMI Height: '" Weight: lbs. oz. kg; 26.00 BMI Method: General Appearance: No Apparent Distress, WD/WN Neck: Non Tender, Supple Respiratory: Lungs Clear, Normal Breath Sounds, No Accessory Muscle Use, No Respiratory Distress, Other (Slightly coarse) Cardiovascular: Irregularly Irregular Extremity: Normal Inspection, Normal Range of Motion Neurologic/Psychiatric: Alert, Normal Mood/Affect Skin: Normal Color, Warm/Dry (EMBER DIAS APRN) Focused Exam Lactate Level 07/26/22 12:10: Lactic Acid Level 1.50 (HOLLI CAO MD) Lactic Acid Level Laboratory Tests Test 07/26/22 12:10 Lactic Acid Level 1.50 MMOL/L (0.50-2.00) (HOLLI CAO MD) Progress/Results/Core Measures Results/Orders Lab Results Laboratory Tests Test 07/26/22 11:50 07/26/22 11:55 07/26/22 12:10 Range/Units White Blood Count 4.8 4.3-11.0 10^3/uL Red Blood Count 3.39 L 4.30-5.52 10^6/uL Hemoglobin 11.7 L 13.3-17.7 g/dL Hematocrit 35 L 40-54 % Mean Corpuscular Volume 104 H 80-99 fL Mean Corpuscular Hemoglobin 35 H 25-34 pg Mean Corpuscular Hemoglobin Concent 33 32-36 g/dL Red Cell Distribution Width 15.6 H 10.0-14.5 % Platelet Count 133 130-400 10^3/uL Mean Platelet Volume 10.0 9.0-12.2 fL Immature Granulocyte % (Auto) 1 % Neutrophils (%) (Auto) 70 42-75 % Lymphocytes (%) (Auto) 11 L 12-44 % Monocytes (%) (Auto) 16 H 0-12 % Eosinophils (%) (Auto) 1 0-10 % Basophils (%) (Auto) 1 0-10 % Neutrophils # (Auto) 3.4 1.8-7.8 10^3/uL Lymphocytes # (Auto) 0.5 L 1.0-4.0 10^3/uL Monocytes # (Auto) 0.8 0.0-1.0 10^3/uL Eosinophils # (Auto) 0.1 0.0-0.3 10^3/uL Basophils # (Auto) 0.0 0.0-0.1 10^3/uL Immature Granulocyte # (Auto) 0.0 0.0-0.1 10^3/uL Percent Immature Platelet Fraction 3.7 0.0-7.6 % Prothrombin Time 15.9 H 12.2-14.7 SEC INR Comment 1.3 0.8-1.4 Activated Partial Thromboplast Time 36 H 24-35 SEC Sodium Level 143 135-145 MMOL/L Potassium Level 4.2 3.6-5.0 MMOL/L Chloride Level 101 98-107 MMOL/L Carbon Dioxide Level 29 21-32 MMOL/L Anion Gap 13 5-14 MMOL/L Blood Urea Nitrogen 11 7-18 MG/DL Creatinine 3.58 H 0.60-1.30 MG/DL Estimat Glomerular Filtration Rate 19 BUN/Creatinine Ratio 3 Glucose Level 108 H 70-105 MG/DL Calcium Level 9.9 8.5-10.1 MG/DL Corrected Calcium 10.0 8.5-10.1 MG/DL Magnesium Level 2.1 1.6-2.4 MG/DL Total Bilirubin 0.8 0.1-1.0 MG/DL Aspartate Amino Transf (AST/SGOT) 21 5-34 U/L Alanine Aminotransferase (ALT/SGPT) 16 0-55 U/L Alkaline Phosphatase 102 40-136 U/L Troponin I 0.028 <0.028 NG/ML B-Type Natriuretic Peptide 7228.5 H <100.0 PG/ML Total Protein 7.0 6.4-8.2 GM/DL Albumin 3.9 3.2-4.5 GM/DL SARS-CoV-2 RNA (RT-PCR) Not Detected Not Detecte Lactic Acid Level 1.50 0.50-2.00 MMOL/L (HOLLI CAO MD) Vital Signs/I&O 07/26/22 07/26/22 07/26/22 07/26/22 11:45 12:14 14:07 19:18 Temp 38.0 Pulse 134 140 128 116 Resp 27 16 B/P (MAP) 120/84 (96) 111/82 128/92 132/73 Pulse Ox 95 95 O2 Delivery Room Air (HOLLI CAO MD) Blood Pressure Mean: 96 Progress Progress Note : Progress Note Patient seen and evaluated, resting comfortably in bed, no acute distress. Based on exam and symptoms, work-up initiated including CBC, CMP, coags, troponin, magnesium level, lactic acid, blood cultures x2, covid swab. Unable to order IV fluids for sepsis due to chronic kidney disease on dialysis. Cardizem IV push ordered. 1315 Labs and chest x-ray reviewed. CBC shows decreased hemoglobin 11.7, decreased hematocrit 35. CMP shows creatinine of 3.58, GFR 19, BUN 11. Lactic acid normal 1.5. Troponin negative. Magnesium normal 2.1. BNP elevated 7228.5. Chest x-ray shows cardiomegaly with central pulmonary vascular congestion and edema. Chest x-ray reviewed by me, vascular congestion on chest x-ray appears worse than chest x-ray completed on 07/07/2022. I called and spoke with Dr. Aldana, cardiology. He thinks that patient should likely be transferred to facility that has dialysis, thinks that symptoms are related to fluid overload. All results discussed with patient. Patient is agreeable to transfer. 1418 chart: [facility] in [place] for transfer, no answer, message left. 1446 I called and spoke with [facility] in [place], patient was excepted for transfer. 1525 [facility] called back, states that they no longer have bed availability. Was able to get patient accepted to [facility] in [place]. 1829 [facility] called with bed assignment at this time. Nursing staff is calling for helicopter transportation due to being unable to secure ambulance transport after calling multiple ambulance services. (EMBER DIAS APRN) Initial ECG Impression Date: Jul 26, 2022 Initial ECG Impression Time: 11:55 Initial ECG Rate: 130 Initial ECG Rhythm: A Fib/Flutter Initial ECG Intervals: Normal Initial ECG Impression: Atrial Fibrillation w/RVR Initial ECG Comparisson: Unchanged (EMBER DIAS APRN) Diagnostic Imaging Diagonstic Imaging: Xray Plain Films/CT/US/NM/MRI: chest Comments [facility] [place], [place] NAME: MARCIANO PETTIT [facility] REC#: [id number] PT STATUS: REG ER : 1965 PHYSICIAN: EMBER DIAS APRN ADMIT DATE: 07/26/22/ER Signed Date of Exam:07/26/22 CHEST 1 VIEW, AP/PA ONLY EXAMINATION: Chest, 1 view. HISTORY: Chest pain. COMPARISON: 07/07/2022. FINDINGS: The lung volumes are normal. Scattered hazy opacities are seen in both lungs. No focal consolidation is seen. No large pleural effusion or pneumothorax is seen. The cardiomediastinal silhouette is prominent. No acute osseous abnormality is seen. IMPRESSION: Cardiomegaly with suggestion of central pulmonary vascular congestion and edema. Dictated by: Dictated on workstation # [id number] Dict: 07/26/22 1211 Trans: 07/26/22 1248 [id number] Interpreted by: JOHNNY CRAWFORD DO Electronically signed by: JOHNNY CRAWFORD DO 07/26/22 1248 (EMBER DIAS APRN) Departure Impression Primary Impression: ESRD (end stage renal disease) on dialysis Additional Impressions: CHF exacerbation Qualified Codes: I50.9 - Heart failure, unspecified Atrial fibrillation with rapid ventricular response Disposition: XFER SHT-TRM HOSP Condition: Stable/Unchanged Admissions Decision to Admit/Date: Jul 26, 2022 Time/Decision to Admit Time: 13:25 (EMBER DIAS APRN) Transfer Transfer Reason: Exceeds level of care Time Spoke to Accepting Phy: 13:[address] Castle, hospitalist, accepted patient. Transfer Time: 18:33 Transfer Facility: [facility] Method of Transfer: Air (EMBER DIAS APRN) Departure-Patient Inst. Referrals: MARY LOU TAO DO (PCP/Family) Primary Care Physician ATTENDING PHYSICIAN NOTE: I was physically present as attending physician in the emergency department during the care of this patient. I was briefly consulted on disposition by Ember Dias, JAMAAL. I recommended prompt transfer to a dialysis capable facility. I did not personally examine or interview this patient, and I was not otherwise directly involved in the decision making or delivery of care for this patient. Patient was observed to be ambulating about the unit, alert and oriented. (HOLLI CAO MD) EMBER DIAS APRN Jul 26, 2022 12:04 HOLLI CAO MD Jul 27, 2022 07:45
[2022-07-26 12:06] LABS: EOSINOPHILS # (AUTO) 0.1 10^3/uL (0.0-0.3); EOSINOPHILS % (AUTO) 1 % (0-10)
[2022-07-26 12:07] LABS: BASOPHILS % (AUTO) 1 % (0-10); HEMATOCRIT 35 % (40-54); HEMOGLOBIN 11.7 g/dL (13.3-17.7); LYMPHOCYTES # (AUTO) 0.5 10^3/uL (1.0-4.0); LYMPHOCYTES % (AUTO) 11 % (12-44); MEAN CORPUSCULAR HEMOGLOBIN 35 pg (25-34); MEAN CORPUSCULAR HGB CONC 33 g/dL (32-36); MEAN CORPUSCULAR VOLUME 104 fL (80-99); MONOCYTES # (AUTO) 0.8 10^3/uL (0.0-1.0); MONOCYTES % (AUTO) 16 % (0-12); NEUTROPHILS # (AUTO) 3.4 10^3/uL (1.8-7.8); NEUTROPHILS % (AUTO) 70 % (42-75); PLATELET COUNT 133 10^3/uL (130-400); WHITE BLOOD COUNT 4.8 10^3/uL (4.3-11.0)
[2022-07-26 12:10] LABS: ALBUMIN 3.9 GM/DL (3.2-4.5)
[2022-07-26 12:11] LABS: POTASSIUM 4.2 MMOL/L (3.6-5.0)
[2022-07-26 12:12] LABS: CALCIUM 9.9 MG/DL (8.5-10.1)
[2022-07-26 12:15] LABS: BILIRUBIN,TOTAL 0.8 MG/DL (0.1-1.0)
[2022-07-26 12:16] LABS: INR 1.3 (0.8-1.4); PROTHROMBIN TIME PATIENT 15.9 SEC (12.2-14.7)
[2022-07-26 12:17] LABS: CREATININE SERUM 3.58 MG/DL (0.60-1.30)
[2022-07-26 12:20] LABS: MAGNESIUM 2.1 MG/DL (1.6-2.4)
--- NOTE | 2022-07-26 12:27 | Diagnostic Imaging Report ---
EXAMINATION: Chest, 1 view. HISTORY: Chest pain. COMPARISON: 07/07/2022. FINDINGS: The lung volumes are normal. Scattered hazy opacities are seen in both lungs. No focal consolidation is seen. No large pleural effusion or pneumothorax is seen. The cardiomediastinal silhouette is prominent. No acute osseous abnormality is seen. IMPRESSION: Cardiomegaly with suggestion of central pulmonary vascular congestion and edema. Dictated by: Dictated on workstation # [id number]
[2022-07-26] MEDS ORDERED: ACETAMINOPHEN 500 MG TAB (TYLENOL) PO ONE (12:30)
[2022-07-26 19:18] VITALS: BP 132/73
== END 2022-07-26 19:18 | disposition short-term general hospital (02) ==
LOC: EDUNIT# 11:45 → ER 11:48
DX: I13.2 Hypertensive heart and chronic kidney disease with heart failure and with stage 5 chronic kidney disease, or end stage renal disease (principal); I50.9 Heart failure, unspecified; N18.6 End stage renal disease; I48.91 Unspecified atrial fibrillation; F17.210 Nicotine dependence, cigarettes, uncomplicated; Z98.61 Coronary angioplasty status; Z20.822 Contact with and (suspected) exposure to COVID-19; Z99.2 Dependence on renal dialysis
CPT/HCPCS: 36415; 71045; 80053; 83605; 83735; 83880; 84484; 85025; 85610; 85730; 87040; 87636

== ENCOUNTER → 2022-08-20 | Outpatient (CLI) | payer MEDICARE, MEDICAID ==
[~2022-08-20] MED LIST changes: +RT-ALBUTEROL SULF 2.5 MG/3 ML PRE-MIX VIAL INH ONE
== END ==
LOC: RT 07-23 08:43
PROVIDERS: ATTEND Pediatrics
DX: J44.9 Chronic obstructive pulmonary disease, unspecified (principal)
CPT/HCPCS: 94060; 94726; 94729

== ENCOUNTER 2022-09-17 08:56 | Day surgery (SDC) | payer MEDICARE, MEDICAID ==
[~2022-09-17] VITALS: Ht 182.8 cm; Wt 88.9 kg
[~2022-09-17 08:56] MED LIST changes: -RT-ALBUTEROL SULF 2.5 MG/3 ML PRE-MIX VIAL INH ONE
[2022-09-17] MEDS ORDERED: NS IV 1000 ML 1,000 ML IV SCH ×2 (09:30→10:15)
[2022-09-17] MEDS ORDERED: NS IV 1000 ML 1,000 ML ONE (09:32)
[2022-09-17 10:07] VITALS: BP 122/102
--- NOTE | 2022-09-17 10:30 | Diagnostic Imaging Report ---
INDICATION: Atrial fibrillation. COMPARISON: 07/26/2022. FINDINGS: The heart is enlarged, unchanged from the prior exam. The venous congestion has improved. No appreciable pulmonary edema at followup. No effusion. IMPRESSION: Similar cardiomegaly. Decreased venous distention. No pulmonary edema, pleural fluid, or pneumothorax at followup. Dictated by: Dictated on workstation # [id number]
[2022-09-17 10:31] LABS: HEMATOCRIT 37 % (40-54); HEMOGLOBIN 12.4 g/dL (13.3-17.7); MEAN CORPUSCULAR HEMOGLOBIN 35 pg (25-34); MEAN CORPUSCULAR HGB CONC 33 g/dL (32-36); MEAN CORPUSCULAR VOLUME 106 fL (80-99); PLATELET COUNT 168 10^3/uL (130-400); WHITE BLOOD COUNT 6.7 10^3/uL (4.3-11.0)
[2022-09-17 10:44] LABS: INR 1.5 (0.8-1.4); PROTHROMBIN TIME PATIENT 18.2 SEC (12.2-14.7)
[2022-09-17] MEDS ORDERED: MTP25TSR PO (10:50)
[2022-09-17] MEDS ORDERED: MIRT-68 PO (10:50)
[2022-09-17] MEDS ORDERED: BUDE10.26 IH (10:50)
[2022-09-17] MEDS ORDERED: MONT-40 PO (10:50)
[2022-09-17] MEDS ORDERED: AMIO100T4 PO (10:50)
[2022-09-17] MEDS ORDERED: ACET-93 PO (10:50)
[2022-09-17 10:51] LABS: ALBUMIN 4.1 GM/DL (3.2-4.5); BILIRUBIN,TOTAL 0.7 MG/DL (0.1-1.0); CALCIUM 9.3 MG/DL (8.5-10.1); CREATININE SERUM 6.55 MG/DL (0.60-1.30); POTASSIUM 5.4 MMOL/L (3.6-5.0); TOTAL PROTEIN 7.3 GM/DL (6.4-8.2)
[2022-09-17] MEDS ORDERED: MIDAZOLAM 2 MG/2 ML (VERSED) VIAL ONE (10:57)
[2022-09-17] MEDS ORDERED: proPOfol 200 MG/20 ML (DIPRIVAN) VIAL IV ONE (10:57)
[2022-09-17] MEDS ORDERED: LIDOCAINE 2% VISCOUS 15 ML UDC ONE (11:03)
--- NOTE | 2022-09-17 11:22 | Anesthesia-General Post-Op ---
MAC Patient Condition Mental Status/LOC: Same as Preop Cardiovascular: Satisfactory Nausea/Vomiting: Absent Respiratory: Satisfactory Pain: Controlled Complications: Absent Post Op Complications Complications None Follow Up Care/Instructions Patient Instructions None needed. Anesthesiology Discharge Order Discharge Order Patient is doing well, no complaints, stable vital signs, no apparent adverse anesthesia problems. No complications reported per nursing. BRANDO BAKER CRNA Sep 17, 2022 11:22
[2022-09-17] MEDS ORDERED: AMIO200T65 PO (11:25)
--- NOTE | 2022-09-17 11:26 | Discharge Inst-Post CATH ---
Discharge Inst-CATH/EP Problems Reviewed?: Yes Post Cardiac Cath/EP D/C Inst Follow Up/Plan Appointment with Dr. Manzanares's office next week Appointment with Dr. Love <b>CARDIAC CATH/EP PROCEDURE DISCHARGE INSTRUCTIONS</b> ACTIVITY * Go Home directly and rest. * Limit activity of the leg (or wrist if it was used) for 7 days including aerobics, swimming, jogging, bicycling, etc. * Restrict stair-climbing for 7 days if possible, if not, climb up with your non-cath leg, then bring together on the same step. * Avoid lifting, pushing, pulling or excessive movement of the affected extremity for 7 days. * Customary sexual activity may be resumed after 2 days-use caution not to use a position that strains or causes pain to the affected extremity. * No driving for 24 hours. * NO SMOKING. * Avoid straining for bowel movements for 7 days. * Gentle walking on level ground is allowed. * Returning to work will depend on the type of procedure and the results. Your doctor will discuss this with you. CALL YOUR DOCTOR FOR ANY OF THE FOLLOWING: *If bleeding from the puncture site occurs- Apply gentle pressure to site with clean cloth and call your doctor or EMS. * If a knot or lump forms under the skin, increases in size, or causes pain. * If bruising appears to be worsening or moving further down your leg instead of disappearing. * Temperature above 101 F. CARE OF YOUR GROIN INCISION; * Bruising or purple discoloration of the skin near the puncture site is common. * You may shower only, no bathtub bathing for 5 days. Be careful to avoid slipping as your leg may feel stiff. * If a closure device was used on your femoral artery, please see the attached guide regarding care of the device and your leg. * Leave dressing on FOR 24 hours. CARE OF YOUR WRIST INCISION; * Bruising or purple discoloration of the skin near the puncture site is common. * You may shower. * DO NOT submerge wrist. * Leave dressing on FOR 24 hours. TITA MANZANARES MD Sep 17, 2022 11:26
--- NOTE | 2022-09-17 11:28 | Cardioversion ---
Cardioversion PROCEDURE PHYSICIAN: Tita Manzanares DATE OF PROCEDURE: 09/17/22 DIRECT EXTERNAL ELECTRICAL CARDIOVERSION: Indications: Atrial Fibrillation Preoperative diagnoses: Atrial Fibrillation Postoperative diagnosis: Sinus rhythm, Successful Electrical Cardioversion Anesthesia: By Anesthesia services Complications: None Specimen: None Contrast: 0 Flouroscopy: none Procedure Details: 56-year-old gentleman with paroxysmal atrial fibrillation, has a Watchman procedure done. Back in atrial fibrillation, had ablation done. Patient missed few days of his oral anticoagulation earlier this month. I decided to proceed with TYREE then cardioversion. TYREE done showing no clot or thrombus in the left atrial appendage. The patient was brought the [employer] after informed consent was taken, all the risks and complications were explained including the risk of stroke. Electrical cardioversion was carried out with anesthesia support with propofol. 200 joules of synchronized shock was delivered through external patches which promptly restored sinus rhythm. The patient tolerated the procedure well. Conclusions: Successful electrical cardioversion and terminating atrial fibrillation Final Diagnosis: Paroxysmal atrial fibrillation Palpitation Hypertension Hyperlipidemia TITA MANZANARES MD Sep 17, 2022 11:28
[2022-09-17] MEDS ORDERED: AMIODARONE FOR BOLUS 150 MG in NS (IVPB) 100 ML 100 ML IV ONE ×2 (11:30→11:45)
[2022-09-17] MEDS ORDERED: APIXABAN 5 MG TABLET PO SCH (11:30)
[2022-09-17] MEDS ORDERED: AMIODARONE 200 MG TABLET PO SCH (11:30)
--- NOTE | 2022-09-17 11:30 | Cardiac Procedure Note-CS/ASA ---
Pre-Procedure Note Pre-Op Procedure Note Date of Available H&P: Sep 15, 2022 Date H&P Reviewed: Sep 17, 2022 Time H&P Reviewed: 10:00 History & Physical: H&P Reviewed, Patient Examed, No changes noted Pre-Operative Diagnosis: a fib Moderate Sedation PreProcedure Time 10:00 ASA Score 3 Airway Lungs Heart ASA score ASA 1: a normal healthy patient ASA 2: a patient with a mild systemic disease (mid diabetes, controlled hypertension, obesity ASA 3: a patient with a severe systemic disease that limits activity (angina, COPD, prior Myocardial infarction) ASA 4: a patient with an incapacitating disease that is a constant threat to life (CHF, renal failure) ASA 5: a moribund patient not expected to survive 24 hrs. (ruptured aneurysm) ASA 6: a declared brain- patient whose organs are being harvested. For emergent operations, add the letter E after the classification Mallampati Classification Grade 3 Sedation Plan Analgesia, Amnesia, Plan communicated to team members, Discussed options with patient/fam, Discussed risks with patient/fam The patient is an appropriate candidate to undergo the planned procedure, sedation, and anesthesia. The patient immediately re-assessed prior to indication. TITA BANDA MD Sep 17, 2022 11:30
[2022-09-17 11:53] VITALS: BP 119/77
[2022-09-17] MEDS ORDERED: ONDANSETRON 4 MG/2 ML (SDV) Z0FRAN ONE (11:58)
[2022-09-17] MEDS ORDERED: ONDANSETRON 4 MG/2 ML (SDV) Z0FRAN IVP ONE (12:00)
== END 2022-09-17 12:50 | disposition home or self-care (01) ==
LOC: CATH 08:56
PROVIDERS: ATTEND Internal Medicine Cardiovascular Disease
DX: I48.0 Paroxysmal atrial fibrillation (principal); R00.2 Palpitations; I12.0 Hypertensive chronic kidney disease with stage 5 chronic kidney disease or end stage renal disease; E78.5 Hyperlipidemia, unspecified; I25.10 Atherosclerotic heart disease of native coronary artery without angina pectoris; N18.6 End stage renal disease; I65.23 Occlusion and stenosis of bilateral carotid arteries; Z79.01 Long term (current) use of anticoagulants; Z99.2 Dependence on renal dialysis; Z79.899 Other long term (current) drug therapy
CPT/HCPCS: 36415; 71045; 80053; 80061; 85027; 85610; 85730; 87081; 92960; 93005; 93312

== ENCOUNTER 2022-10-14 12:06 | Emergency (ER) | payer MEDICARE, MEDICAID ==
[~2022-10-14] VITALS: Ht 172 cm; Wt 72.5 kg
[~2022-10-14 12:06] MED LIST changes: +AMIO100T4 PO; +AMIO200T65 PO; +BUDE10.26 IH; +MIRT-68 PO; +MONT-40 PO; +MTP25TSR PO
--- NOTE | 2022-10-14 12:25 | ED EENT ---
History of Present Illness General Chief Complaint: Oral/Throat Problems Stated Complaint: ORAL PROBLEMS Nursing Triage Note: PT STATES HE HAD TEETH PULLED A WEEK AGO THURSDAY AND HAS INCREASED SWELLING AND BLEEDING. Source: patient Exam Limitations: no limitations History of Present Illness Date Seen by Provider: Oct 14, 2022 Time Seen by Provider: 12:17 Initial Comments Here with bleeding of the lower jaw after tooth extraction of the middle and lateral incisor on the lower jaw on the right were removed 1 week ago. He was placed on antibiotics yesterday. Patient does have history of end-stage renal disease and is on dialysis as well as blood thinners. Bleeding is currently controlled but did have some bleeding during dialysis today. Notes that this sometimes happens at nighttime. Denies fever or chills no significant swelling or pain currently. He just wanted to get checked out to make sure the antibiotics were okay. He did start his amoxicillin. He is due to follow-up with his dentist on 06 November. Timing/Duration: other (Last several days) Severity: mild Prearrival Treatment: prescription meds Associated Symptoms: No fever, No tooth pain Allergies and Home Medications Allergies Coded Allergies: No Known Drug Allergies (Unverified , 08/27/21) Patient Home Medication List Home Medication List Reviewed: Yes Acetaminophen (Acetaminophen) 500 Mg Tablet, 1,000 MG PO Q6H PRN for MILD PAIN, (Reported) Entered as Reported by: LUIS FELIPE GARRETT on 09/17/22 1050 Albuterol Sulfate (Ventolin Hfa) 1 Puff Puff, 1 PUFF INH Q4H PRN for AIR HUNGER, (Reported) Entered as Reported by: LUIS FELIPE GARRETT on 06/11/22 1518 Allopurinol (Allopurinol) 100 Mg Tablet, 100 MG PO DAILY, (Reported) Entered as Reported by: LUIS FELIPE GARRETT on 10/30/21 0854 Amiodarone HCl (Amiodarone HCl) 200 Mg Tablet, 200 MG PO DAILY Prescribed by: TITA BANDA on 09/17/22 1125 Apixaban (Eliquis) 5 Mg Tablet, 5 MG PO BID Prescribed by: TITA BANDA on 06/11/22 1418 Biotin (Biotin) 10,000 Mcg Capsule, 10,000 MCG PO DAILY, (Reported) Entered as Reported by: KURT CONCEPCION on 07/11/22 0748 Budesonide/Formoterol Fumarate (Budesonide-Formoterol 160-4.5) 160 Mcg-4.5 Mcg/Actuation Hfa.aer.ad, 1 PUFF IH BID, (Reported) Entered as Reported by: LUIS FELIPE GARRETT on 09/17/22 1050 Cholecalciferol (Vitamin D3) (Vitamin D3) 10 Mcg (400 Unit) Tab.chew, 10 MCG PO DAILY, (Reported) Entered as Reported by: LUIS FELIPE GARRETT on 10/30/21 0854 Cyanocobalamin (Vitamin B-12) (Vitamin B-12) 1,000 Mcg Tablet, 1,000 MCG PO DAILY, (Reported) Entered as Reported by: MARY LOU CIFUENTES on 12/03/21 1617 Diltiazem HCl (Diltiazem 24Hr Cd) 120 Mg Cap.er.24h, 240 MG PO DAILY, (Reported) Entered as Reported by: LUIS FELIPE GARRETT on 06/11/22 1515 Diltiazem HCl (Diltiazem 12Hr ER) 120 Mg Cap.er.12h, 120 MG PO EVENING, (Reported) Entered as Reported by: KURT CONCEPCION on 07/11/22 0748 Duloxetine HCl (Duloxetine HCl) 30 Mg Capsule.dr, 60 MG PO DAILY, (Reported) Entered as Reported by: LUIS FELIPE GARRETT on 06/11/22 1520 Ferric Citrate (Auryxia) 210 Mg Iron Tablet, 420 MG PO WM, (Reported) Entered as Reported by: LUIS FELIPE GARRETT on 10/30/21 0854 Metoprolol Succinate (Metoprolol Succinate) 25 Mg Tab.er.24h, 25 MG PO DAILY, (Reported) Entered as Reported by: LUIS FELIPE GARRETT on 09/17/22 1050 Mirtazapine (Mirtazapine) 15 Mg Tablet, 15 MG PO HS, (Reported) Entered as Reported by: LUIS FELIPE GARRETT on 09/17/22 1050 Montelukast Sodium (Montelukast Sodium) 10 Mg Tablet, 10 MG PO HS, (Reported) Entered as Reported by: LUIS FELIPE GARRETT on 09/17/22 1050 Pantoprazole Sodium (Pantoprazole Sodium) 40 Mg Tablet.dr, 40 MG PO DAILY, (Reported) Entered as Reported by: LUIS FELIPE GARRETT on 10/30/21 0854 Promethazine HCl (Promethazine Tablet) 25 Mg Tablet, 25 MG PO Q6H PRN for NAUSEA/VOMITING, (Reported) Entered as Reported by: LUIS FELIPE GARRETT on 06/11/22 152 Sodium Zirconium Cyclosilicate (Lokelma) 10 Gram Powd.pack, 10 GM PO, (Reported) Entered as Reported by: LUIS FELIPE GARRETT on 06/11/22 1520 Trazodone HCl (Trazodone HCl) 300 Mg Tablet, 300 MG PO HS, (Reported) Entered as Reported by: LUIS FELIPE GARRETT on 06/11/22 1517 Vitamin E Mixed (Vitamin E) 1,000 Unit Capsule, 1,000 UNIT PO HS, (Reported) Entered as Reported by: LUIS FELIPE GARRETT on 06/11/22 152 [beet root] , 1 TAB PO DAILY, (Reported) Entered as Reported by: LUIS FELIPE GARRETT on 06/11/22 152 Review of Systems Review of Systems Constitutional: see HPI; No chills, No fever Nose: no symptoms reported Mouth: see HPI Throat: no symptoms reported Respiratory: No cough, No short of breath Cardiovascular: no symptoms reported Gastrointestinal: No nausea, No vomiting Past Gcsgaft-Xibkob-Fbapde Hx Patient Social History Tobacco Use?: Yes Tobacco type used: Cigarettes Immunizations Up To Date First/Initial COVID19 Vaccinat: vaccinated Second COVID19 Vaccination Miguel: 08/14 Third COVID19 Vaccination Date: 08/14 Past Medical History Surgery/Hospitalization HX: PMH;LIVER FAILURE, GOUT,A-FIB, dialysis, fistula in left upper arm SURG.-HEART CATH - 10/2021 Surgeries: Yes Gallbladder, Orthopedic, Vascular Surgery Currently Using CPAP: No Cardiac: Yes Atrial Fibrillation, Hypertension Neurological: Yes Headaches /Migraines Genitourinary: Yes Renal Failure, Dialysis Gastrointestinal: Yes Gastroesophageal Reflux, Freire's Esophagus, Chronic Constipation Musculoskeletal: No Endocrine: No HEENT: No Cancer: No Skin Psychosocial: No Integumentary: No Family Medical History Reviewed Nursing Family Hx Physical Exam Vital Signs Vital Signs - First Documented 10/14/22 12:17 Temp 36.2 Pulse 57 Resp 18 B/P (MAP) 155/74 (101) Pulse Ox 99 Height, Weight, BMI Height: '" Weight: lbs. oz. kg; 24.00 BMI Method: General Appearance: WD/WN, no apparent distress Mouth/Throat: other (Extraction site is red without significant surrounding erythema and no active bleeding currently on the lower jaw middle and lateral incisor on the right.) Neck: full range of motion, supple; No lymphadenopathy (R), No lymphadenopathy (L) Cardiovascular: regular rate, rhythm, no murmur Respiratory: lungs clear, normal breath sounds Neurologic/Psychiatric: alert, oriented x 3 Progress/Results/Core Measures Results/Orders Vital Signs/I&O 10/14/22 12:17 Temp 36.2 Pulse 57 Resp 18 B/P (MAP) 155/74 (101) Pulse Ox 99 Blood Pressure Mean: 101 Progress Progress Note : Progress Note Seen and evaluated. No indication for further treatment currently and patient is not bleeding. We did discuss his prescription medicines which she will continue and we did discuss follow-up. Discharge and return precautions discussed. Patient verbalized understanding instructions and agreement with plan. Departure Impression Primary Impression: Dental infection Disposition: HOME, SELF-CARE Condition: Improved Departure-Patient Inst. Decision time for Depature: 12:23 Referrals: MARY LOU TAO DO (PCP/Family) Primary Care Physician Patient Instructions: Bleeding After Surgery Add. Discharge Instructions: All discharge instructions reviewed with patient and/or family. Voiced understanding. Continue antibiotics as prescribed. Continue to rinse your mouth and follow instructions from your dentist or post extraction instructions. Return for fabiola mims pain, fever, swelling, increased bleeding or other concerns as needed. KELLY LANDEROS MD Oct 14, 2022 12:25
[2022-10-14 12:28] VITALS: BP 155/74
== END 2022-10-14 12:28 | disposition home or self-care (01) ==
LOC: EDUNIT# 12:06 → ER 12:07
DX: K04.7 Periapical abscess without sinus (principal); I48.91 Unspecified atrial fibrillation; I12.9 Hypertensive chronic kidney disease with stage 1 through stage 4 chronic kidney disease, or unspecified chronic kidney disease; N18.9 Chronic kidney disease, unspecified; F17.210 Nicotine dependence, cigarettes, uncomplicated; Z98.818 Other dental procedure status; Z99.2 Dependence on renal dialysis; Z79.01 Long term (current) use of anticoagulants
CPT/HCPCS: 99281

== ENCOUNTER 2022-10-14 22:51 | Emergency (ER) | payer MEDICARE, MEDICAID ==
[~2022-10-14] VITALS: Ht 172 cm; Wt 72.5 kg
[2022-10-14] MEDS ORDERED: TRANEXAMIC ACID 100 MG/ML 10 ML INJECTION ONE (23:05)
--- NOTE | 2022-10-14 23:11 | ED EENT ---
History of Present Illness General Chief Complaint: Dental Problems/Pain Stated Complaint: GUMS BLEEDING Source: patient Exam Limitations: no limitations History of Present Illness Date Seen by Provider: Oct 14, 2022 Time Seen by Provider: 23:07 Initial Comments Patient is a 56-year-old male history of end-stage renal disease on hemodialysis, [place] who presents to the emergency department with gum bleeding. He had dental extraction a couple of weeks ago. He was seen in the emergency room earlier this morning complaining of bleeding. It was actually stopped at that time. Patient was discharged to home with instructions to quit smoking as well as to not use straws. Patient states he started bleeding again this evening. He has been attempting to put pressure on it without any relief of the bleeding. He was nauseated earlier this evening and threw up a little bit of blood. He states he is not nauseous now. He did dialyze today and completed it. He is not short of breath or having chest pain. No fevers or chills. His follow-up with his dental clinic is not for another 3 weeks. Timing/Duration: gradual Location: dental Prearrival Treatment: other (pressure) Associated Symptoms: denies symptoms Allergies and Home Medications Allergies Coded Allergies: No Known Drug Allergies (Unverified , 08/27/21) Patient Home Medication List Home Medication List Reviewed: Yes Acetaminophen (Acetaminophen) 500 Mg Tablet, 1,000 MG PO Q6H PRN for MILD PAIN, (Reported) Entered as Reported by: LUIS FELIPE GARRETT on 09/17/22 1050 Albuterol Sulfate (Ventolin Hfa) 1 Puff Puff, 1 PUFF INH Q4H PRN for AIR HUNGER, (Reported) Entered as Reported by: LUIS FELIPE GARRETT on 06/11/22 1518 Allopurinol (Allopurinol) 100 Mg Tablet, 100 MG PO DAILY, (Reported) Entered as Reported by: LUIS FELIPE GARRETT on 10/30/21 0854 Amiodarone HCl (Amiodarone HCl) 200 Mg Tablet, 200 MG PO DAILY Prescribed by: TITA BANDA on 09/17/22 1125 Apixaban (Eliquis) 5 Mg Tablet, 5 MG PO BID Prescribed by: TITA BANDA on 06/11/22 1418 Biotin (Biotin) 10,000 Mcg Capsule, 10,000 MCG PO DAILY, (Reported) Entered as Reported by: KURT CONCEPCION on 07/11/22 0748 Budesonide/Formoterol Fumarate (Budesonide-Formoterol 160-4.5) 160 Mcg-4.5 Mcg/Actuation Hfa.aer.ad, 1 PUFF IH BID, (Reported) Entered as Reported by: LUIS FELIPE GARRETT on 09/17/22 1050 Cholecalciferol (Vitamin D3) (Vitamin D3) 10 Mcg (400 Unit) Tab.chew, 10 MCG PO DAILY, (Reported) Entered as Reported by: LUIS FELIPE GARRETT on 10/30/21 0854 Cyanocobalamin (Vitamin B-12) (Vitamin B-12) 1,000 Mcg Tablet, 1,000 MCG PO DAILY, (Reported) Entered as Reported by: MARY LOU CIFUENTES on 12/03/21 1617 Diltiazem HCl (Diltiazem 24Hr Cd) 120 Mg Cap.er.24h, 240 MG PO DAILY, (Reported) Entered as Reported by: LUIS FELIPE GARRETT on 06/11/22 1515 Diltiazem HCl (Diltiazem 12Hr ER) 120 Mg Cap.er.12h, 120 MG PO EVENING, (Reported) Entered as Reported by: KURT CONCEPCION on 07/11/22 0748 Duloxetine HCl (Duloxetine HCl) 30 Mg Capsule.dr, 60 MG PO DAILY, (Reported) Entered as Reported by: LUIS FELIPE GARRETT on 06/11/22 1520 Ferric Citrate (Auryxia) 210 Mg Iron Tablet, 420 MG PO WM, (Reported) Entered as Reported by: LUIS FELIPE GARRETT on 10/30/21 0854 Metoprolol Succinate (Metoprolol Succinate) 25 Mg Tab.er.24h, 25 MG PO DAILY, (Reported) Entered as Reported by: LUIS FELIPE GARRETT on 09/17/22 1050 Mirtazapine (Mirtazapine) 15 Mg Tablet, 15 MG PO HS, (Reported) Entered as Reported by: LUIS FELIPE GARRETT on 09/17/22 1050 Montelukast Sodium (Montelukast Sodium) 10 Mg Tablet, 10 MG PO HS, (Reported) Entered as Reported by: LUIS FELIPE GARRETT on 09/17/22 1050 Pantoprazole Sodium (Pantoprazole Sodium) 40 Mg Tablet.dr, 40 MG PO DAILY, (Reported) Entered as Reported by: LUIS FELIPE GARRETT on 10/30/21 0854 Promethazine HCl (Promethazine Tablet) 25 Mg Tablet, 25 MG PO Q6H PRN for NAUSEA/VOMITING, (Reported) Entered as Reported by: LUIS FELIPE GARRETT on 06/11/22 1521 Sodium Zirconium Cyclosilicate (Lokelma) 10 Gram Powd.pack, 10 GM PO, (Reported) Entered as Reported by: LUIS FELIPE GARRETT on 06/11/22 1520 Trazodone HCl (Trazodone HCl) 300 Mg Tablet, 300 MG PO HS, (Reported) Entered as Reported by: LUIS FELIPE GARRETT on 06/11/22 1517 Vitamin E Mixed (Vitamin E) 1,000 Unit Capsule, 1,000 UNIT PO HS, (Reported) Entered as Reported by: LUIS FELIPE GARRETT on 06/11/22 1522 [beet root] , 1 TAB PO DAILY, (Reported) Entered as Reported by: LUIS FELIPE GARRETT on 06/11/22 1522 Review of Systems Review of Systems Constitutional: see HPI Mouth: other (bleeding from gums) Throat: no symptoms reported Respiratory: no symptoms reported Cardiovascular: no symptoms reported Gastrointestinal: nausea Musculoskeletal: no symptoms reported Skin: no symptoms reported Neurological: No Symptoms Reported All Other Systems Reviewed Negative Unless Noted: Yes Past Hbaehhb-Grclnm-Acgrln Hx Immunizations Up To Date First/Initial COVID19 Vaccinat: vaccinated Second COVID19 Vaccination Miguel: 08/14 Third COVID19 Vaccination Date: 08/14 Past Medical History Surgery/Hospitalization HX: PMH;LIVER FAILURE, GOUT,A-FIB, dialysis, fistula in left upper arm SURG.-HEART CATH - 10/2021 Surgeries: Yes Gallbladder, Orthopedic, Vascular Surgery Currently Using CPAP: No Cardiac: Yes Atrial Fibrillation, Hypertension Neurological: Yes Headaches /Migraines Genitourinary: Yes Renal Failure, Dialysis Gastrointestinal: Yes Gastroesophageal Reflux, Freire's Esophagus, Chronic Constipation Musculoskeletal: No Endocrine: No HEENT: No Cancer: No Skin Psychosocial: No Integumentary: No Physical Exam Vital Signs Vital Signs - First Documented 10/14/22 22:52 Temp 36.5 Pulse 65 Resp 16 B/P (MAP) 119/76 (90) Pulse Ox 93 O2 Delivery Room Air Height, Weight, BMI Height: '" Weight: lbs. oz. kg; 24.00 BMI Method: General Appearance: WD/WN, no apparent distress Eyes: bilateral eye normal inspection, bilateral eye PERRL, bilateral eye EOMI Mouth/Throat: other (blood noted to be oozing from lower anterior gums. nothing pulsatile) Cardiovascular: regular rate, rhythm, other (+ thrill LUE fistula site) Respiratory: lungs clear, normal breath sounds, no respiratory distress Neurologic/Psychiatric: alert, normal mood/affect, oriented x 3 Skin: normal color, warm/dry Progress/Results/Core Measures Results/Orders My Orders Orders - AMITA QUEZADA MD Tranexamic Acid Injection (Cyklokapron I (10/14/22 23:15) Tranexamic Acid Injection (Cyklokapron I (10/14/22 23:15) Medications Given in ED Current Medications Medications Dose Ordered Sig/Yoan Route Start Time Stop Time Status Last Admin Dose Admin Tranexamic Acid 1,000 mg ONCE ONCE IV 10/14/22 23:15 10/14/22 23:16 DC 10/14/22 23:15 1,000 MG Vital Signs/I&O 10/14/22 10/15/22 22:52 00:07 Temp 36.5 36.5 Pulse 65 65 Resp 16 16 B/P (MAP) 119/76 (90) 119/76 Pulse Ox 93 93 O2 Delivery Room Air Room Air Progress Progress Note : Time: 00:03 Progress Note Patient seen and evaluated by me. Evaluation today includes physical exam. Pertinent exam findings include minimal active bleeding from the lower gums in the area of the front bottom incisors. No fetid breath. No floor of the mouth elevation. No submental tenderness. No lymphadenopathy in the cervical region. His vital signs are stable. Heart is regular, lungs are clear. Vital signs are stable. Patient is treated with TXA soaked 4 x 4's to the gingiva. He is monitored throughout the duration of his stay in the ER. He has resolution of his bleeding. No indications for need of laboratory evaluation. He has provided cold ice water to rinse his mouth. He has no other complaints and would like to be discharged. I strongly cautioned him about smoking and drinking from straws. I advised him to call his dentist tomorrow. Return precautions provided. He verbalized understanding of the discharge instructions. All questions are sought and answered. Patient is improved at discharge Departure Impression Primary Impression: Gingival bleeding Disposition: HOME, SELF-CARE Condition: Improved Departure-Patient Inst. Decision time for Depature: 00:03 Referrals: MARY LOU TAO DO (PCP/Family) Primary Care Physician Patient Instructions: Bleeding Gums (DC) Add. Discharge Instructions: Please try not to smoke over the next 24 to 48 hours as this can irritate your gums and cause rebleeding. Cold ice water swish around in your mouth can also help to decrease bleeding. Gentle direct pressure over the bleeding areas can also be helpful. You may consider contacting your dentist in the morning to see if they have any other suggestions to help prevent your gums bleeding again. Soft diet. Avoid using straws. Return to the emergency department for any new, concerning or emergent complaints. Copy Copies To 1: MARY LOU TAO KATHRYN M MD Oct 14, 2022 23:11
[2022-10-14] MEDS ORDERED: TRANEXAMIC ACID INJECTION 1,000 MG in NS (IVPB) 50 ML 50 ML IV ONE (23:15)
[2022-10-14] MEDS ORDERED: TRANEXAMIC ACID 100 MG/ML 10 ML INJECTION IV ONE (23:15)
[2022-10-15 00:07] VITALS: BP 119/76
== END 2022-10-15 00:08 | disposition home or self-care (01) ==
LOC: EDUNIT# 22:51 → ER 22:53
DX: K06.8 Other specified disorders of gingiva and edentulous alveolar ridge (principal); I12.0 Hypertensive chronic kidney disease with stage 5 chronic kidney disease or end stage renal disease; N18.6 End stage renal disease; Z99.2 Dependence on renal dialysis; Z79.01 Long term (current) use of anticoagulants
CPT/HCPCS: 99283

== ENCOUNTER 2022-12-11 12:01 | Emergency (ER) | payer MEDICARE, MEDICAID ==
[2022-12-11 12:38] LABS: BASOPHILS # (AUTO) 0.1 10^3/uL (0.0-0.1); BASOPHILS % (AUTO) 1 % (0-10); EOSINOPHILS # (AUTO) 0.3 10^3/uL (0.0-0.3); EOSINOPHILS % (AUTO) 6 % (0-10); HEMATOCRIT 32 % (40-54); HEMOGLOBIN 10.8 g/dL (13.3-17.7); LYMPHOCYTES # (AUTO) 0.8 10^3/uL (1.0-4.0); LYMPHOCYTES % (AUTO) 13 % (12-44); MEAN CORPUSCULAR HEMOGLOBIN 35 pg (25-34); MEAN CORPUSCULAR HGB CONC 33 g/dL (32-36); MEAN CORPUSCULAR VOLUME 104 fL (80-99); MEAN PLATELET VOLUME 10.4 fL (9.0-12.2); MONOCYTES # (AUTO) 0.8 10^3/uL (0.0-1.0); MONOCYTES % (AUTO) 13 % (0-12); NEUTROPHILS # (AUTO) 3.8 10^3/uL (1.8-7.8); NEUTROPHILS % (AUTO) 66 % (42-75); PLATELET COUNT 151 10^3/uL (130-400); WHITE BLOOD COUNT 5.8 10^3/uL (4.3-11.0)
[2022-12-11 12:47] LABS: ALBUMIN 3.7 GM/DL (3.2-4.5); POTASSIUM 4.3 MMOL/L (3.6-5.0)
[2022-12-11 12:48] LABS: CALCIUM 9.2 MG/DL (8.5-10.1); INR 1.1 (0.8-1.4); PROTHROMBIN TIME PATIENT 14.6 SEC (12.2-14.7)
[2022-12-11 12:49] LABS: TOTAL PROTEIN 6.6 GM/DL (6.4-8.2)
[2022-12-11] MEDS ORDERED: LIDOCAINE 2% w/EPI 1:200,000 20 ML VIAL ONE (12:49)
[2022-12-11 12:53] LABS: CREATININE SERUM 3.05 MG/DL (0.60-1.30)
--- NOTE | 2022-12-11 13:10 | ED General ---
General Chief Complaint: General Problems/Pain Stated Complaint: LT ARM BLEEDING POST DIALYSIS Nursing Triage Note: PT STATES HERE FROM DIALYSIS, STATES DIALYSIS SHUNT ON L UPPER ARM DID NOT STOP BLEEDING AND HAS CLAMP IN PLACE AT THIS X. PT DOES NOT KNOW HOW LONG CLAMP HAS BEEN IN PLACE. PT STATES DIALYSIS WAS COMPLETE AT 0945 Source of Information: Patient Exam Limitations: No Limitations History of Present Illness Date Seen by Provider: Dec 11, 2022 Time Seen by Provider: 12:05 Initial Comments 57-year-old male with past medical history of ESRD on HD coming in from dialysis due to bleeding fistula. It would not stop bleeding afterwards, they placed a clamp for couple minutes, it was still bleeding, so they placed a clamp again for 30 minutes and it was still bleeding so they referred him to the ER. He does take Plavix and aspirin daily. He states that he did not have significant blood loss. Otherwise denying any chest pain, shortness of breath, nausea, vomiting, diarrhea, weakness, numbness, or any other concerns Allergies and Home Medications Allergies Coded Allergies: No Known Drug Allergies (Unverified , 08/27/21) Patient Home Medication List Home Medication List Reviewed: Yes Acetaminophen (Acetaminophen) 500 Mg Tablet, 1,000 MG PO Q6H PRN for MILD PAIN, (Reported) Entered as Reported by: LUIS FELIPE GARRETT on 09/17/22 1050 Albuterol Sulfate (Ventolin Hfa) 1 Puff Puff, 1 PUFF INH Q4H PRN for AIR HUNGER, (Reported) Entered as Reported by: LUIS FELIPE GARRETT on 06/11/22 1518 Allopurinol (Allopurinol) 100 Mg Tablet, 100 MG PO DAILY, (Reported) Entered as Reported by: LUIS FELIPE GARRETT on 10/30/21 0854 Amiodarone HCl (Amiodarone HCl) 200 Mg Tablet, 200 MG PO DAILY Prescribed by: TITA BANDA on 09/17/22 1125 Apixaban (Eliquis) 5 Mg Tablet, 5 MG PO BID Prescribed by: TITA BANDA on 06/11/22 1418 Biotin (Biotin) 10,000 Mcg Capsule, 10,000 MCG PO DAILY, (Reported) Entered as Reported by: KURT CONCEPCION on 07/11/22 0748 Budesonide/Formoterol Fumarate (Budesonide-Formoterol 160-4.5) 160 Mcg-4.5 Mcg/Actuation Hfa.aer.ad, 1 PUFF IH BID, (Reported) Entered as Reported by: LUIS FELIPE GARRETT on 09/17/22 1050 Cholecalciferol (Vitamin D3) (Vitamin D3) 10 Mcg (400 Unit) Tab.chew, 10 MCG PO DAILY, (Reported) Entered as Reported by: LUIS FELIPE GARRETT on 10/30/21 0854 Cyanocobalamin (Vitamin B-12) (Vitamin B-12) 1,000 Mcg Tablet, 1,000 MCG PO DAILY, (Reported) Entered as Reported by: MARY LOU CIFUENTES on 12/03/21 1617 Diltiazem HCl (Diltiazem 24Hr Cd) 120 Mg Cap.er.24h, 240 MG PO DAILY, (Reported) Entered as Reported by: LUIS FELIPE GARRETT on 06/11/22 1515 Diltiazem HCl (Diltiazem 12Hr ER) 120 Mg Cap.er.12h, 120 MG PO EVENING, (Reported) Entered as Reported by: KURT CONCEPCION on 07/11/22 0748 Duloxetine HCl (Duloxetine HCl) 30 Mg Capsule.dr, 60 MG PO DAILY, (Reported) Entered as Reported by: LUIS FELIPE GARRETT on 06/11/22 1520 Ferric Citrate (Auryxia) 210 Mg Iron Tablet, 420 MG PO WM, (Reported) Entered as Reported by: LUIS FELIPE GARRETT on 10/30/21 0854 Metoprolol Succinate (Metoprolol Succinate) 25 Mg Tab.er.24h, 25 MG PO DAILY, (Reported) Entered as Reported by: LUIS FELIPE GARRETT on 09/17/22 1050 Mirtazapine (Mirtazapine) 15 Mg Tablet, 15 MG PO HS, (Reported) Entered as Reported by: LUIS FELIPE GARRETT on 09/17/22 1050 Montelukast Sodium (Montelukast Sodium) 10 Mg Tablet, 10 MG PO HS, (Reported) Entered as Reported by: LUIS FELIPE GARRETT on 09/17/22 1050 Pantoprazole Sodium (Pantoprazole Sodium) 40 Mg Tablet.dr, 40 MG PO DAILY, (Reported) Entered as Reported by: LUIS FELIPE GARRETT on 10/30/21 0854 Promethazine HCl (Promethazine Tablet) 25 Mg Tablet, 25 MG PO Q6H PRN for NA USEA/VOMITING, (Reported) Entered as Reported by: LUIS FELIPE GARRETT on 06/11/22 1521 Sodium Zirconium Cyclosilicate (Lokelma) 10 Gram Powd.pack, 10 GM PO, (Reported) Entered as Reported by: LUIS FELIPE GARRETT on 06/11/22 1520 Trazodone HCl (Trazodone HCl) 300 Mg Tablet, 300 MG PO HS, (Reported) Entered as Reported by: LUIS FELIPE GARRETT on 06/11/22 1517 Vitamin E Mixed (Vitamin E) 1,000 Unit Capsule, 1,000 UNIT PO HS, (Reported) Entered as Reported by: LUIS FELIPE GARRETT on 06/11/22 1522 [beet root] , 1 TAB PO DAILY, (Reported) Entered as Reported by: LUIS FELIPE GARRETT on 06/11/22 152 Review of Systems Review of Systems Constitutional: No fever EENTM: no symptoms reported Respiratory: no symptoms reported Cardiovascular: no symptoms reported Gastrointestinal: no symptoms reported Genitourinary: no symptoms reported Skin: see HPI Psychiatric/Neurological: No Symptoms Reported Past Rhxhiwg-Hthkkc-Ithibj Hx Patient Social History Tobacco Use?: Yes Tobacco type used: Cigarettes Smoking Status: Never a Smoker Substance use?: No Alcohol Use?: No Pt feels they are or have been: No Immunizations Up To Date First/Initial COVID19 Vaccinat: vaccinated Second COVID19 Vaccination Miguel: 08/14 Third COVID19 Vaccination Date: 08/14 Past Medical History Surgery/Hospitalization HX: PMH;LIVER FAILURE, GOUT,A-FIB, dialysis, fistula in left upper arm SURG.-HEART CATH - 10/2021 Surgeries: Yes Gallbladder, Orthopedic, Vascular Surgery Currently Using CPAP: No Cardiac: Yes Atrial Fibrillation, Hypertension Neurological: Yes Headaches /Migraines Genitourinary: Yes Renal Failure, Dialysis Gastrointestinal: Yes Gastroesophageal Reflux, Freire's Esophagus, Chronic Constipation Musculoskeletal: No Endocrine: No HEENT: No Cancer: No Skin Psychosocial: No Integumentary: No Physical Exam Vital Signs Vital Signs - First Documented 12/11/22 12:10 Temp 36.6 Pulse 63 Resp 18 B/P (MAP) 178/89 (118) Pulse Ox 99 Capillary Refill : Less Than 3 Seconds Height, Weight, BMI Height: '" Weight: lbs. oz. kg; 24.00 BMI Method: General Appearance: No Apparent Distress, WD/WN HEENT: PERRL/EOMI Neck: Full Range of Motion Respiratory: Chest Non Tender, Lungs Clear, Normal Breath Sounds, No Accessory Muscle Use, No Respiratory Distress Cardiovascular: Regular Rate, Rhythm, Normal Peripheral Pulses Gastrointestinal: Normal Bowel Sounds, Non Tender, Soft Skin: Normal Color, Warm/Dry, Other (Arm dialysis fistula with pulsating blood) Procedures/Interventions 2 [id number]-bk-[id number] stitches with 3-0 nylon placed with good hemostasis. 3 cc of 2% lidocaine with epinephrine were infiltrated into the area prior to the stitching. Progress/Results/Core Measures Suspected Sepsis SIRS Temperature: Pulse: 63 Respiratory Rate: 18 Laboratory Tests 12/11/22 12:32: White Blood Count 5.8 Blood Pressure 178 /89 Mean: 118 Laboratory Tests 12/11/22 12:32: Creatinine 3.05H, INR Comment 1.1, Platelet Count 151, Total Bilirubin 1.0 Results/Orders Lab Results Laboratory Tests Test 12/11/22 12:32 Range/Units White Blood Count 5.8 4.3-11.0 10^3/uL Red Blood Count 3.13 L 4.30-5.52 10^6/uL Hemoglobin 10.8 L 13.3-17.7 g/dL Hematocrit 32 L 40-54 % Mean Corpuscular Volume 104 H 80-99 fL Mean Corpuscular Hemoglobin 35 H 25-34 pg Mean Corpuscular Hemoglobin Concent 33 32-36 g/dL Red Cell Distribution Width 15.0 H 10.0-14.5 % Platelet Count 151 130-400 10^3/uL Mean Platelet Volume 10.4 9.0-12.2 fL Immature Granulocyte % (Auto) 0 % Neutrophils (%) (Auto) 66 42-75 % Lymphocytes (%) (Auto) 13 12-44 % Monocytes (%) (Auto) 13 H 0-12 % Eosinophils (%) (Auto) 6 0-10 % Basophils (%) (Auto) 1 0-10 % Neutrophils # (Auto) 3.8 1.8-7.8 10^3/uL Lymphocytes # (Auto) 0.8 L 1.0-4.0 10^3/uL Monocytes # (Auto) 0.8 0.0-1.0 10^3/uL Eosinophils # (Auto) 0.3 0.0-0.3 10^3/uL Basophils # (Auto) 0.1 0.0-0.1 10^3/uL Immature Granulocyte # (Auto) 0.0 0.0-0.1 10^3/uL Prothrombin Time 14.6 12.2-14.7 SEC INR Comment 1.1 0.8-1.4 Activated Partial Thromboplast Time 37 H 24-35 SEC Sodium Level 141 135-145 MMOL/L Potassium Level 4.3 3.6-5.0 MMOL/L Chloride Level 99 98-107 MMOL/L Carbon Dioxide Level 33 H 21-32 MMOL/L Anion Gap 9 5-14 MMOL/L Blood Urea Nitrogen 12 7-18 MG/DL Creatinine 3.05 H 0.60-1.30 MG/DL Estimat Glomerular Filtration Rate 23 BUN/Creatinine Ratio 4 Glucose Level 82 70-105 MG/DL Calcium Level 9.2 8.5-10.1 MG/DL Corrected Calcium 9.4 8.5-10.1 MG/DL Total Bilirubin 1.0 0.1-1.0 MG/DL Aspartate Amino Transf (AST/SGOT) 24 5-34 U/L Alanine Aminotransferase (ALT/SGPT) 16 0-55 U/L Alkaline Phosphatase 92 40-136 U/L Total Protein 6.6 6.4-8.2 GM/DL Albumin 3.7 3.2-4.5 GM/DL My Orders Orders - JESUS RITTER MD Ed Iv/Invasive Line Start (12/11/22 12:24) Cbc And Automated Diff (12/11/22 12:24) Comprehensive Metabolic Panel (12/11/22 12:24) Protime With Inr (12/11/22 12:24) Partial Thromboplastin Time (12/11/22 12:24) Lidocaine 2% W/Epi 1:200,000 (Xylocaine/ (12/11/22 12:49) Medications Given in ED Current Medications Medications Dose Ordered Sig/Yoan Route Start Time Stop Time Status Last Admin Dose Admin Lidocaine/ Epinephrine 20 ml STK-MED ONCE .ROUTE 12/11/22 12:49 12/11/22 12:53 DC 12/11/22 13:00 2 ML Vital Signs/I&O 12/11/22 12:10 Temp 36.6 Pulse 63 Resp 18 B/P (MAP) 178/89 (118) Pulse Ox 99 Capillary Refill : Less Than 3 Seconds Blood Pressure Mean: 118 Progress Note : Progress Note 57-year-old male with above history coming in due to bleeding dialysis fistula. ABCs were intact and vitals were stable on presentation. We remove the clamp, and he immediately had pulsating blood. We replaced the clamp, placed an IV, got basic labs, and they were significant for chronic anemia, normal platelets, elevated PTT, elevated creatinine which is expected, normal BUN. We then remove the clamp, placed digital pressure, and infiltrated the area with lidocaine with epinephrine. I then performed 2 [id number]-hx-[id number] stitches with 3-0 nylon with good hemostasis. The patient was monitored for some time afterwards and he continued to show no signs of bleeding. We contacted his dialysis center for them to follow-up with the stitches. I believe he is stable for discharge with outpatient follow-up. He was sent home with strict return precautions Departure Impression Primary Impression: Hemorrhage of arteriovenous fistula Qualified Codes: T82.838A - Hemorrhage due to vascular prosthetic devices, implants and grafts, initial encounter Disposition: 01 HOME, SELF-CARE Condition: Improved Departure-Patient Inst. Decision time for Depature: 13:45 Referrals: MARY LOU TAO DO (PCP/Family) Primary Care Physician Patient Instructions: Arteriovenous Shunt (DC) Add. Discharge Instructions: If this starts bleeding again, immediately place pressure with 1 finger where it is bleeding and call 911 [address] you to the ER immediately. Otherwise, call your dialysis center today and ask what they want to do with the stitches. They may want you to follow-up with your vascular surgeon that placed the fistula. Work/School Note: Work Release Form Date Seen in the Emergency Department: Dec 11, 2022 Return to Work: Dec 12, 2022 Restrictions: No Restrictions JESUS RITTER MD Dec 11, 2022 13:10
[2022-12-11 13:56] VITALS: BP 163/91
== END 2022-12-11 13:57 | disposition home or self-care (01) ==
LOC: EDUNIT# 12:01 → ER 12:03
DX: T82.838A Hemorrhage due to vascular prosthetic devices, implants and grafts, initial encounter (principal); I12.0 Hypertensive chronic kidney disease with stage 5 chronic kidney disease or end stage renal disease; N18.6 End stage renal disease; F17.210 Nicotine dependence, cigarettes, uncomplicated; Z99.2 Dependence on renal dialysis; Z79.02 Long term (current) use of antithrombotics/antiplatelets; Z79.82 Long term (current) use of aspirin
CPT/HCPCS: 36415; 80053; 85025; 85610; 85730